=== PATIENT | female | born 1940 | race Caucasian/White ===

== ENCOUNTER 2020-05-08 20:02 | Inpatient (IN) | payer MEDICARE, SELFPAY ==
--- NOTE | 2020-05-08 | ECG_ITS ---
Test Reason : DIZZINESS Blood Pressure : / mmHG Vent. Rate : 076 BPM Atrial Rate : 076 BPM P-R Int : 154 ms QRS Dur : 088 ms QT Int : 362 ms P-R-T Axes : 050 012 019 degrees QTc Int : 407 ms Normal sinus rhythm Low voltage QRS Borderline ECG No previous ECGs available Referred By: Perry Grant Electronically Signed By:LYUBOV GRANT
[2020-05-08 20:11] VITALS: BP 171/61; PULSE 78; RESP 18; TEMP 37.4; O2SAT 99; BMI 26.6
--- NOTE | 2020-05-08 20:18 | PC.NURSE ---
PT BIBA, UPRIGHT IN BED, RR EVEN UNLABORED, SKIN WPD, AOX3. PT C/O ACUTE ON CHRONIC DIZZINESS WHICH STARTED THIS AM, STS FEELS LIKE THINGS ARE SPINNING WHILE AT REST AND EXCAREBATED W/ MOVEMENT, NO RELIEF FROM MECLAZINE WHICH USUALLY RESOLVES HER SX. PT IS LISTING TO L WHILE IN BED, STS WAS WALKING TO LEFT AT, PT BARELY ABLE TO LIFT L LEG OFF BED WHERE R LEG IS STRONG AND LIFTS EASILY, PT STS NORMALLY CAN L LEG WELL AND DOES REGULAR EXERCISES AT HOME, DENIES ANY PAIN OR LEG/HIP ISSUES. DR NORTH NOTIFIED OF PT SX.
--- NOTE | 2020-05-08 20:49 | CT_ITS ---
CT ANGIOGRAM NECK WITH CONTRAST CT ANGIOGRAM BRAIN WITH CONTRAST CLINICAL INFORMATION: Dizziness. COMPARISON: None available. TECHNIQUE: Test bolus sequences followed by intravenous administration 70 mL of Omnipaque 350. Helical imaging was performed in the axial plane from the thoracic inlet to the skull vertex. Delayed postcontrast imaging of the head was also performed. The data was processed at the instrument technologist workstation for generation of MIP sequences. Angled MIPs and volume rendered reformatted images were also generated at an offline 3D workstation under concurrent supervision. Stenoses are assessed in accordance with NASCET criteria unless otherwise indicated. This CT examination was performed using dose optimization techniques as appropriate, variously including the following: *Automated exposure control *Adjustment of mA and/or kV according to patient size (this includes techniques or standardized protocols for targeted exams where dose is matched to indication/reason for exam; i.e. extremities or head) *Use of iterative reconstruction technique FINDINGS: BRAIN: [There is no intracranial hemorrhage, hydrocephalus, extra-axial surface collection, midline shift, or other herniation pattern. Rojas to white matter differentiation is diffusely maintained without evidence of an evolved acute territorial infarct. The basilar cisterns are preserved. No significant soft tissue abnormality. No acute osseous abnormality. There is a right-sided scleral band. There is moderate mucosal thickening within the right maxillary sinus and the left ethmoid air cells. Additional mild sinus mucosal disease including small retention cysts within the left maxillary sinus and the right sphenoid sinus. CERVICAL SOFT TISSUES AND LUNG APICES: The imaged upper lungs are clear. There is multilevel cervical spondylosis. No significant soft tissue findings within the neck. NECK CTA: [There is a classic 3 vessel configuration of the aortic arch. Proximal arch vessels are non-stenotic. The vertebral arteries are codominant. No significant ostial stenosis is visualized on either side. Both vertebral arteries are widely patent throughout their extracranial cervical course. Both common carotid arteries are normal in course and caliber.] There is atherosclerotic calcification involving the carotid bifurcations bilaterally resulting in less than 50% stenoses of the proximal internal carotid arteries on both sides. Retropharyngeal course of the proximal internal carotid arteries bilaterally. BRAIN CTA: [There is normal opacification of major intracranial arteries. No focal flow-limiting stenosis nor discrete proximal large artery occlusion. Small 1 mm infundibulum at the left P-comm origin. Timing of the contrast bolus allows assessment of the major dural venous sinuses, which all opacify normally] CT/CT angio head neck IMPRESSION: - No acute intracranial findings. No acute infarcts. - No acute arterial occlusions and no significant arterial stenoses within the head or neck. - Advanced cervical spondylosis.
[2020-05-08] MEDS: 0.9 % Sodium Chloride 1,000 ML 999 ML IV (21:07)
[2020-05-08] MEDS: diazePAM 5 MG TABLET PO (21:12)
--- NOTE | 2020-05-08 21:20 | ED.DIZZY ---
HPI - Dizziness General Chief Complaint: Dizziness Stated Complaint: dizziness Time Seen by Provider: 05/08/20 22:57 Source: patient Mode of arrival: EMS Limitations: no limitations History of Present Illness HPI Narrative: Patient states she woke around 03:00 am this with dizziness. Patient states history of vertigo, but her dizziness did not resolve with meclizine. Patient states also during the day having some left leg extremity. Patient states also she is leaning to the left side. Related Data Home Medications Medication Instructions Recorded Confirmed albuterol sulfate [ProAir HFA] 2 puff PO QID 05/09/20 05/09/20 meclizine 1 tab PO TID PRN 05/09/20 05/09/20 metoprolol succinate 1 tab PO DAILY 05/09/20 05/09/20 simvastatin 1 tab PO BEDTIME 05/09/20 05/09/20 Allergies Allergy/AdvReac Type Severity Reaction Status Date / Time amoxicillin [From PREVPAC] Allergy Severe RASH Unverified 01/28/20 14:35 clarithromycin [From PREVPAC] Allergy Severe RASH Unverified 01/28/20 14:35 lansoprazole [From PREVP[facility]] Allergy Severe RASH Unverified 01/28/20 14:35 Review of Systems Review of Systems: Yes all other systems are reviewed and are negative Constitutional: Constitutional: Reports as per HPI and Reports no additional constitutional complaints Eyes: Eyes: Reports as per HPI and Reports no additional eye complaints ENT: Reports system reviewed and no additional complaints, except as documented, Reports as per HPI, Reports vertigo and Reports dizziness Cardiovascular: Cardiovascular: Reports as per HPI and Reports no additional cardiovascular complaints Respiratory: Respiratory: Reports as per HPI and Reports no additional respiratory complaints Gastrointestinal: Gastrointestinal: Reports as per HPI and Reports no additional gastrointestinal complaints Genitourinary: Genitourinary: Reports no additional female genitourinary complaints and Reports as per HPI Musculoskeletal: Musculoskeletal: Reports no additional musculoskeletal complaints and Reports as per HPI Neurologic: Reports system reviewed and no additional complaints, except as documented, Reports as per HPI, Reports vertigo and Reports dizziness Psychiatric: Psychiatric: Reports no additional psychiatric complaints and Reports as per HPI PMF Past Medical History Medical History (Updated 05/09/20 @ 02:13 by RIGOBERTO Brownlee) Asthma HLD (hyperlipidemia) HTN (hypertension) Vertigo Social History Social History Alcohol intake: current Alcohol intake frequency: holidays/special occasions only Smoking Status: Former smoker Smoked in Last 30 Days: No Use of substances other than those prescribed or required for medical reasons: No Advance Directives: No Advance Directives Information Provided: No Physical Exam Vital Signs: Vital Signs: Last Vital Signs Temp 98.2 F 05/08/20 22:18 Pulse 85 05/09/20 00:09 Resp 16 05/08/20 22:18 BP 168/78 H 05/09/20 00:09 Pulse Ox 99 05/08/20 22:18 Body Mass Index 26.6 Const: General: cooperative, healthy appearing, comfortable, no acute distress, well developed, alert and awake Orientation/consciousness: patient oriented x3 HENMT: Head: Yes normal to inspection and Yes No palpable skull fracture present Eyes: Other: Positive for horizontal nystagmus going to the left Neck: Neck: Yes full ROM, Yes no meningeal signs, Yes trachea midline, Yes supple and No tender Chest: Chest palpation & inspection: normal inspection of the chest and normal palpation of entire chest wall Resp: Effort & Inspection: normal respiratory effort and able to speak in complete sentences Cardio: Jugular venous distension: no JVD Heart sounds: S1 normal heart sound present and S2 normal heart sound present GI: Inspection: Yes normal to inspection and No abdominal wall ecchymosis Palpation (GI): Soft to palpation, not firm, nontender, no guarding and not rigid : General: No CVA tenderness and Yes no CVA tenderness Back/Spine/Pelvis: Back: no CVA tenderness, No CVA tenderness and No back tenderness Skin: General skin exam: no rashes or lesions noted and elasticity normal Neuro: Other: Negative for slurred speech. Negative for facial droop. Negative pronator drift. Rapid hand movement and [id number] test is intact. Right lower extremity motor strength is 5 left lower extremity lower extremities 4+ General: patient oriented x3, gait normal, no meningeal signs and CN's II-XI intact bilaterally Cranial nerves: Yes CN's II-XII intact bilaterally Extrem: Other: Negative for signs of trauma General: Yes normal to inspection and Yes full ROM Psych: Appearance: grossly normal and well kempt Course Course Course Narrative: Due to patient stating dizziness worse than usual and left lower extremity weakness although patient is out of window for stroke intervention patient will have head CT a to rule out stroke. Patient also given Valium to help with dizziness. Patient also have fluids, labs, EKG, orthostatics ordered. Reevaluation(s) Reevaluation #1: Patient's orthostatics is negative. Still waiting for results for head CTA. After given Valium, meclizine patient was re-evaluated patient still is dizzy. Patient not able to stand or walk. Not able to do Romberg test. Patient will be possible admission. Time: 00:20 Reevaluation #2: Dr. Price of Radiology called and states patient preliminarily read of head CT negative for any acute infarction, aneurysm, dissection, or embolus. He states of official read will be done by Neurology in the morning. Time: 00:30 Reevaluation #3: Spoke with hospitalist Dr. Tafoya who agrees to accept patient. Patient be admitted for dizziness for possible MRI. Patient's troponin elevated more than 50% cardiology will be called to see if patient should be treated as ACS and if anticoagulation is indicated. Second troponin does not show any EKG changes. Time: 01:52 Additional Reevaluation(s): Spoke with Dr. Bentley of cardiology and he does not recommend anticoagulation and does not believe patient is having myocardial infarction. Recommend repeat troponin 8 hours. Patient to be admitted for dizziness for MRi. MDM - Dizziness MDM Narrative Medical decision making narrative: Dizziness Lab Data Result diagrams: 05/08/20 21:07 05/08/20 21:07 Labs: Lab Results 05/08/20 05/08/20 05/08/20 Range/Units 21:07 21:07 21:07 WBC 6.0 (4.8-10.8) X10*3/uL RBC 4.04 L (4.20-5.50) X10*6/uL Hgb 12.7 (12.0-16.0) g/dl Hct 38.0 (37-47) % MCV 94.1 (80-98) fL MCH 31.4 (27.0-33.0) pg MCHC 33.4 (31.0-35.0) g/dl RDW 11.9 (11.0-16.0) % Plt Count 245 (160-400) X10*3/uL MPV 10.0 (9.4-12.3) fL Immature Gran % (Auto) 0.3 (0.0-0.4) % Neut % (Auto) 64.7 (45-73) % Lymph % (Auto) 23.3 (20-40) % [place] % (Auto) 9.5 (2-11) % Eos % (Auto) 1.7 (0-4) % Baso % (Auto) 0.5 (0-2) % Lymph # (Auto) 1.4 (1.2-4.9) X10*3/uL [place] # (Auto) 0.6 (0.1-1.2) X10*3/uL Eos # (Auto) 0.1 (0.0-0.4) X10*3/uL Baso # (Auto) 0.0 (0.0-0.2) X10*3/uL Abs Immat Gran (auto) 0.02 (0.00-0.03) X10*3/uL Absolute Neuts (auto) 3.9 (2.0-8.3) X10*3/uL Absolute Nucleated RBC 0.000 (0.0-0.012) X10*3/uL Nucleated RBC % (auto) 0.0 (0.0-0.2) /100WBC PT 11.3 (10.8-13.0) SEC INR 1.0 (0.9-1.1) APTT 35.2 (24.1-38.0) SEC Sodium 135 (135-145) mmol/L Potassium 4.5 (3.3-5.1) mmol/l Chloride 98 (96-108) mmol/L Carbon Dioxide 28 (22-29) mmol/L Anion Gap 14 (12-20) BUN 11 (9-16) mg/dL Creatinine 0.91 (0.5-1.4) mg/dL Estim Creat Clear Calc 56.3 Estimated GFR 59 Random Glucose 100 (60-115) mg/dL Calcium 9.5 (8.4-10.2) mg/dL Total Bilirubin 0.6 (0.0-1.0) mg/dL AST 15 (5-31) U/L ALT 16 (0-31) U/L Alkaline Phosphatase 66 (39-117) U/L Troponin I High Sens (<3.5-17.0) ng/L Total Protein 7.2 (6.5-8.0) g/dL Albumin 4.3 (3.5-5.0) g/dL Urine Color Urine Appearance Urine pH (5.0-8.0) Ur Specific [place] (1.005-1.025) Urine Protein (NEG-TRACE) MG/DL Urine Glucose (UA) (NEG) MG/DL Urine Ketones (NEG) MG/DL Urine Blood (NEG) Urine Nitrite (NEG) Ur Leukocyte Esterase (NEG) 05/08/20 05/08/20 05/09/20 Range/Units 21:07 23:54 00:46 WBC (4.8-10.8) X10*3/uL RBC (4.20-5.50) X10*6/uL Hgb (12.0-16.0) g/dl Hct (37-47) % MCV (80-98) fL MCH (27.0-33.0) pg MCHC (31.0-35.0) g/dl RDW (11.0-16.0) % Plt Count (160-400) X10*3/uL MPV (9.4-12.3) fL Immature Gran % (Auto) (0.0-0.4) % Neut % (Auto) (45-73) % Lymph % (Auto) (20-40) % Johnson % (Auto) (2-11) % Eos % (Auto) (0-4) % Baso % (Auto) (0-2) % Lymph # (Auto) (1.2-4.9) X10*3/uL [place] # (Auto) (0.1-1.2) X10*3/uL Eos # (Auto) (0.0-0.4) X10*3/uL Baso # (Auto) (0.0-0.2) X10*3/uL Abs Immat Gran (auto) (0.00-0.03) X10*3/uL Absolute Neuts (auto) (2.0-8.3) X10*3/uL Absolute Nucleated RBC (0.0-0.012) X10*3/uL Nucleated RBC % (auto) (0.0-0.2) /100WBC PT (10.8-13.0) SEC INR (0.9-1.1) APTT (24.1-38.0) SEC Sodium (135-145) mmol/L Potassium (3.3-5.1) mmol/l Chloride (96-108) mmol/L Carbon Dioxide (22-29) mmol/L Anion Gap (12-20) BUN (9-16) mg/dL Creatinine (0.5-1.4) mg/dL Estim Creat Clear Calc Estimated GFR Random Glucose (60-115) mg/dL Calcium (8.4-10.2) mg/dL Total Bilirubin (0.0-1.0) mg/dL AST (5-31) U/L ALT (0-31) U/L Alkaline Phosphatase (39-117) U/L Troponin I High Sens 10.6 32.0 H D (<3.5-17.0) ng/L Total Protein (6.5-8.0) g/dL Albumin (3.5-5.0) g/dL Urine Color YELLOW Urine Appearance CLEAR Urine pH 7.0 (5.0-8.0) Ur Specific [place] 1.010 (1.005-1.025) Urine Protein NEG (NEG-TRACE) MG/DL Urine Glucose (UA) NEG (NEG) MG/DL Urine Ketones NEG (NEG) MG/DL Urine Blood NEG (NEG) Urine Nitrite NEG (NEG) Ur Leukocyte Esterase NEG (NEG) ECG Data Interpretation: EKG #1: Normal sinus rhythm. VEnt rate 76: OR interval 154, QRS 88. QTC 407. negative stemi EKG: Sinus rhythm with PVC. Vent rate 75. OR 180. QRS 84. QTC 417. Negaive stemi Discharge Plan Discharge Clinical Impression: Dizziness Patient Disposition: Admitted As Inpatient
[2020-05-08 21:23] LABS: Basophils Percent Auto 0.5 % (0-2); Eosinophils Absolute Auto 0.1 X10*3/uL (0.0-0.4); Eosinophils Percent Auto 1.7 % (0-4); Hemoglobin 12.7 g/dl (12.0-16.0); Imm Gran Abs Auto 0.02 X10*3/uL (0.00-0.03); Imm Gran Pct Auto 0.3 % (0.0-0.4); Lymphocytes Absolute Auto 1.4 X10*3/uL (1.2-4.9); Lymphocytes Percent Auto 23.3 % (20-40); Mean Corpuscular HGB Conc 33.4 g/dl (31.0-35.0); Mean Corpuscular Hemoglobin 31.4 pg (27.0-33.0); Mean Corpuscular Volume 94.1 fL (80-98); Monocytes Absolute Auto 0.6 X10*3/uL (0.1-1.2); Monocytes Percent Auto 9.5 % (2-11); Neutrophils Absolute Auto 3.9 X10*3/uL (2.0-8.3); Neutrophils Percent Auto 64.7 % (45-73); Platelet Count 245 X10*3/uL (160-400); Red Blood Count 4.04 X10*6/uL (4.20-5.50); Red Cell Distribution Width 11.9 % (11.0-16.0)
[2020-05-08 21:24] LABS: MANUAL DIFF FLAG NO
[2020-05-08 21:33] LABS: Prothrombin Time 11.3 SEC (10.8-13.0)
[2020-05-08 21:36] LABS: Partial Thromboplastin Time 35.2 SEC (24.1-38.0)
[2020-05-08 22:16] LABS: Alanine Aminotransferase 16 U/L (0-31); Albumin Level 4.3 g/dL (3.5-5.0); Alkaline Phosphatase 66 U/L (39-117); Anion Gap 14 (12-20); Aspartate Amino Transferase 15 U/L (5-31); Bilirubin Total 0.6 mg/dL (0.0-1.0); Blood Urea Nitrogen 11 mg/dL (9-16); Calcium 9.5 mg/dL (8.4-10.2); Carbon Dioxide 28 mmol/L (22-29); Chloride 98 mmol/L (96-108); Creatinine Clr Calc Pharmacy 56.3; Estimated Glomerular Filt Rate 59; Glucose Random 100 mg/dL (60-115); Potassium 4.5 mmol/l (3.3-5.1); Sodium 135 mmol/L (135-145); Total Protein 7.2 g/dL (6.5-8.0)
[2020-05-08 22:18] VITALS: BP 139/60; PULSE 71; RESP 16; TEMP 36.8; O2SAT 99
[2020-05-08 22:20] LABS: Troponin-I High Sensitivity 10.6 ng/L (<3.5-17.0)
[2020-05-08] MEDS: iohexoL 350 MG/ML 100 ML INFUS..BTL IV (22:40)
[2020-05-09] VITALS (10 sets, daily range): BP systolic 118–177; BP diastolic 58–78; PULSE 73–85; RESP 18–20; TEMP 36.4–36.8; O2SAT 95–98
--- NOTE | 2020-05-09 | MR_ITS ---
EXAMINATION: BRAIN MRI WITHOUT CONTRAST CLINICAL INFORMATION: Evaluate for stroke. COMPARISON: CT angiogram of the head and neck 05/08/2020. TECHNIQUE: Multiplanar MR imaging of the brain was performed without contrast. FINDINGS: There are are a few small acute infarcts involving the paramedian surface of the right frontal lobe and the body of the corpus callosum consistent with acute infarct within the vascular territory the right anterior cerebral artery. Addition to these acute findings there are a few scattered foci of T2 FLAIR signal hyperintensity within the periventricular white matter that most likely represent a chronic manifestation of small vessel ischemia. No pathological magnetic susceptibility artifact. Intracranial vascular flow voids are maintained. There is no intracranial mass effect or midline shift. No abnormal extra axial collection. Lateral and third ventricles are proportionate to the subarachnoid spaces. No hydrocephalus. Midline structures including the cervicomedullary junction are normal. No acute bone marrow signal changes. There is no mastoid or middle ear effusion. Moderate paranasal sinus disease primarily affecting the left posterior ethmoid air cells and the alveolar recess of the right maxillary sinus. A right scleral band and bilateral lens extractions are noted. Orbits are otherwise unremarkable. 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 These findings are superimposed upon scattered chronic small vessel ischemic changes within the periventricular white matter.
[2020-05-09 00:04] LABS: Appearance Urine CLEAR; Color Urine YELLOW; Glucose Urine UA NEG (NEG); Leukocyte Esterase Urine NEG (NEG); Nitrite Urine NEG (NEG); Urine Blood NEG (NEG); Urine Ketones NEG (NEG); Urine Protein NEG (NEG-TRACE)
[2020-05-09] MEDS: Meclizine HCl 25 MG TABLET PO (00:42)
--- NOTE | 2020-05-09 01:25 | ECG_ITS ---
Test Reason : REPEAT Blood Pressure : / mmHG Vent. Rate : 075 BPM Atrial Rate : 075 BPM P-R Int : 180 ms QRS Dur : 084 ms QT Int : 374 ms P-R-T Axes : 050 021 015 degrees QTc Int : 417 ms Sinus rhythm with Premature supraventricular complexes Low voltage QRS Cannot rule out Anterior infarct , age undetermined Abnormal ECG When compared with ECG of 08-MAY-2020 20:21, Premature supraventricular complexes are now Present Referred By: Perry Grant Electronically Signed By:LYUBOV GRANT
--- NOTE | 2020-05-09 02:43 | P.HPHOSP_ITS ---
History of Present Illness Date of Service: 05/09/20 Chief Complaint: Dizziness 80-year-old female with a past medical history of hypertension, hyperlipidemia, vertigo, asthma presented to the hospital with a chief complaint of dizziness. Patient reports that she has intermittent episodes of dizziness that lasts for about have day. She had similar episode of dizziness distended started on 05/08 and a.m. at 3:00 a.m., symptoms lasted until evening and has not been improving even after she took her home meclizine hence decided to come to the ER for further help. Patient mentions that every time she had dizziness she feels like room is spinning and also sways to one side. Denies any chest pain palpitation s. Denies any numbness tingling or focal weakness. Denies any GI or symptoms. Review of all other systems is negative except mentioned above ER course: Per ER team patient the exam was essentially nonfocal except for mild degree stent on the left lower extremity, sensations intact, CT head and CT neck reportedly showed no acute findings. Patient initial troponin was 10 the follow-up troponin was 30; EKG was nonischemic; cardiology was notified-Dr. benjamin mentioned no anticoagulation needed at this point, admitted telemetry, repeat troponins in 8 hours. Patient denies any toxic habits Review of Systems ENT: Reports vertigo and Reports dizziness Neurologic: Reports system reviewed and no additional complaints, except as documented, Reports as per HPI, Reports vertigo and Reports dizziness COUNT INCLUDES THE [facility] Medical History Asthma HLD (hyperlipidemia) HTN (hypertension) Vertigo Social History Household Members: None Housing: Apartment Do you presently have visiting nurse or other home services: No Alcohol intake: current Alcohol intake frequency: holidays/special occasions only Smoking Status: Former smoker Smoked in Last 30 Days: No Use of substances other than those prescribed or required for medical reasons: No Have you been hit, kicked, punched, or otherwise hurt by someone within the past year? If so, by whom?: No Do you feel safe in your current relationship?: No Current Relationship Is there a partner from a previous relationship who is making you feel unsafe now?: No Are you made to feel afraid or neglected: No Faith Healthcare Practices: zoroastrianism Advance Directives: No Advance Directives Information Provided: No Do you have thoughts of harming others: None Do you have a plan to hurt others: No Plan Recently lost weight without trying: No service: No Current occupational status: retired Meds Allergies Allergy/AdvReac Type Severity Reaction Status Date / Time amoxicillin [From [facility]] Allergy Severe RASH Unverified 01/28/20 14:35 clarithromycin [From [facility]] Allergy Severe RASH Unverified 01/28/20 14:35 lansoprazole [From [facility]] Allergy Severe RASH Unverified 01/28/20 14:35 Home Medications Medication Instructions Recorded Confirmed Type albuterol sulfate [ProAir HFA] 2 puff PO QID 05/09/20 05/09/20 History meclizine 1 tab PO TID PRN 05/09/20 05/09/20 History metoprolol succinate 1 tab PO DAILY 05/09/20 05/09/20 History simvastatin 1 tab PO BEDTIME 05/09/20 05/09/20 History Physical Exam Vital Signs and Narrative: Vital Signs: Last Vital Signs Temp 98.2 F 05/08/20 22:18 Pulse 85 05/09/20 00:09 Resp 16 05/08/20 22:18 BP 168/78 H 05/09/20 00:09 Pulse Ox 99 05/08/20 22:18 Body Mass Index 26.6 Gen: Appears in no Acute Distress; Breathing comfortably HEENT: NCAT, Moist Mucosa; no nystagmus Pulm: Vesicular Breath Sounds, fair Air Entry CVS: Normal S1- S2 Abdomen: BS+, soft, Non tender Extremities: Warm, Well Perfused. Neuro: Alert, Awake. Grossly nonfocal. No pronator drift. Strength 5/5 in upper and lower extremities. Sensations equal bilaterally. Cranial nerves intact. Finger to nose test intact. Results Labs CBC and Chem 7: 05/09/20 08:00 05/09/20 08:00 Labs: Laboratory Results - last 24 hr 05/08/20 05/08/20 05/08/20 21:07 21:07 21:07 MCV 94.1 MCH 31.4 MCHC 33.4 RDW 11.9 Plt Count 245 MPV 10.0 Immature Gran % (Auto) 0.3 Neut % (Auto) 64.7 Lymph % (Auto) 23.3 [place] % (Auto) 9.5 Eos % (Auto) 1.7 Baso % (Auto) 0.5 Lymph # (Auto) 1.4 [place] # (Auto) 0.6 Eos # (Auto) 0.1 Baso # (Auto) 0.0 Abs Immat Gran (auto) 0.02 Absolute Neuts (auto) 3.9 Absolute Nucleated RBC 0.000 Nucleated RBC % (auto) 0.0 PT 11.3 INR 1.0 APTT 35.2 Anion Gap 14 Estim Creat Clear Calc 56.3 Estimated GFR 59 Random Glucose 100 Calcium 9.5 Total Bilirubin 0.6 AST 15 ALT 16 Alkaline Phosphatase 66 Troponin I High Sens Total Protein 7.2 Albumin 4.3 Urine Color Urine Appearance Urine pH Ur Specific [place] Urine Protein Urine Glucose (UA) Urine Ketones Urine Blood Urine Nitrite Ur Leukocyte Esterase 05/08/20 05/08/20 05/09/20 21:07 23:54 00:46 MCV MCH MCHC RDW Plt Count MPV Immature Gran % (Auto) Neut % (Auto) Lymph % (Auto) [place] % (Auto) Eos % (Auto) Baso % (Auto) Lymph # (Auto) [place] # (Auto) Eos # (Auto) Baso # (Auto) Abs Immat Gran (auto) Absolute Neuts (auto) Absolute Nucleated RBC Nucleated RBC % (auto) PT INR APTT Anion Gap Estim Creat Clear Calc Estimated GFR Random Glucose Calcium Total Bilirubin AST ALT Alkaline Phosphatase Troponin I High Sens 10.6 32.0 H D Total Protein Albumin Urine Color YELLOW Urine Appearance CLEAR Urine pH 7.0 Ur Specific [place] 1.010 Urine Protein NEG Urine Glucose (UA) NEG Urine Ketones NEG Urine Blood NEG Urine Nitrite NEG Ur Leukocyte Esterase NEG Assessment and Plan (1) Dizziness: Status: Acute 80-year-old female with a past medical history of hypertension, hyperlipidemia, vertigo, asthma presented to the hospital with a chief complaint of dizziness. Patient also noted to have elevated troponin. Patient denied any chest pain. Admitted to the hospital for further management. Dizziness: Patient was given Valium and meclizine in the ER with no significant improvement. Orthostatics Negative. ER team mentioned that the noticed mild decrease in her left lower extremity strength compared to the right. On my exam her strength is equal bilaterally. Continue meclizine p.r.n. Neurology consult further recommendations as well as imaging if needed. Reportedly CT head and CT head and neck showed no acute findings-pending final read. PT/OT Elevated troponins: EKG nonischemic. Patient denies any chest pain. Dr. triana from Cardiology was notified, recommended no further intervention and asked for a follow-up troponin 8 hours. Echocardiogram Hypertension/hyperlipidemia: Continue home medications Full code
[2020-05-09 03:06] LABS: COVID-19 Test Negative (Negative)
--- NOTE | 2020-05-09 04:28 | PC.NURSE ---
2nd attempt to give report.
[2020-05-09] MEDS: Enoxaparin Sodium 40 MG/0.4 ML SYRINGE SUBCUT (06:27)
--- NOTE | 2020-05-09 08:00 | CA_ITS ---
Transthoracic Echocardiogram Patient (Last, First, Middle): Keyla Luu C Gender: Female Date of : 1940 Age: 80 Procedure Date: 05/09/2020 Procedure Type: Transthoracic Echocardiogram Location: [facility] [place] Height: 175.26 cm Weight: 81.65 kg BSA: 1.98 m2 Heart Rate: bpm BP: 129 / 71 mmHg Senior Project Manager: SATINDER Referring MD: Jaiden Tafoya MD Symptoms: Dizziness; Elevated trops; Study Quality: Fair/Contrast ECG Rhythm: Sinus Conclusions: - The left ventricular systolic function is normal. The visually estimated ejection fraction is between 60-65%. - There is mild calcification of the aortic valve. - No obvious valvular pathology seen on this study. Findings Procedure Information Contrast agent, definity, is being given per protocol without apparent complications. Left Ventricle Normal left ventricular cavity size. There is normal left ventricular wall thickness. The left ventricular systolic function is normal. The visually estimated ejection fraction is between 60-65%. There is no evidence of regional wall motion abnormalities. Diastolic function is normal for age. Right Ventricle Normal right ventricular cavity size and systolic function. Atria Both atria are normal in size. Aortic Valve There is a normal trileaflet aortic valve. There is mild calcification of the aortic valve. There is no aortic valve stenosis. There is trace (trivial) aortic valve regurgitation. Mitral Valve The mitral valve appears normal. There is trace mitral valve regurgitation. There is no mitral valve stenosis. Pulmonic Valve The pulmonic valve was not well visualized. Tricuspid Valve Normal tricuspid valve structure. There is trace tricuspid valve regurgitation. The pulmonary artery systolic pressure is normal. Great Vessels The aortic annulus, sinuses of valsalva, and asc aorta are normal in size. Venous The inferior vena cava is normal in size and collapses less than 50% with inspiration. Pericardium/Pleural There is no evidence of pericardial effusion. Prior Study Comparison No prior study available for comparison. Recommendations, Care & Conclusions No obvious valvular pathology seen on this study. Measurements 2D Linear Measurements IVSd: 0.90 0.6-0.9/0.6-1.0 cm LVIDd: 4.17 3.9-5.3/4.2-5.9 cm LVIDd Index: 2.11 2.4-3.2/2.2-3.1 cm/m2 LVIDs: 2.72 2.0-3.6 cm LVPWd: 0.84 0.7-1.1 cm Ao Root: 3.00 2.1-3.5 cm LA Diam: 3.30 2.7-3.8/3.0-4.0 cm LAIDs Index: 1.67 1.5-2.3 cm/m2 LV Mass: 139.27 67-162/88-224 g LV Mass Index: 70.34 43-95/49-115 g/m2 LVOT Diam: 2.00 3.0+(-)1.3 cm 2D Systolic Function EF 4C: 63.10 >55% EF 2C: 68.10 >55% EF BiP: 65.90 >55% Mitral Valve MV Pk E: 0.96 MV PK A: 1.14 MV Decel Time: 261.00 E/A: 0.80 E'Lateral: 8.61 E'Medial: 6.96 E/E' Med: 13.80 E/E' Lat: 11.10 PHT: 76.00 MVA PHT: 2.89 Decel [place]: 3.69 Aortic Valve AoV Pk [place]: 1.49 AoV Mn [place]: 1.03 AoV VTI: 0.31 AoV Pk Grad: 9.00 Aov Mn Grad: 5.00 RESHMA Cont.VTI: 2.26 LVOT LVOT Pk [place]: 0.98 LVOT Mn [place]: 0.68 LVOT VTI: 0.22 LVOT Pk Grad: 4.00 LVOT Mn Grad: 2.00 LVOT Diam: 2.00 LVOT Area: 3.14 Diastolic Function MV Pk E: 0.96 MV Pk A: 1.14 E/A: 0.80 E'Medial: 6.96 E/E' Med: 13.80 E' Laterial: 8.61 E/E' Lat: 11.10 Tricuspid Valve TR Pk [place]: 2.65 TR Pk Grad: 28.00 RA Press: 3.00 RVSP: 31.00 Great Vessels Aorta Ao Root-2D: 3.00 2.0-3.7 cm Ao Asc: 3.10 2.1-3.4 cm Ao Arch: 2.70 Updated in Other Vendor System with Status of Final Ivan Interiano MD electronically signed on 05/09/2020 11:26:59 AM with status of Final
[2020-05-09 08:30] LABS: Basophils Percent Auto 0.4 % (0-2); Eosinophils Absolute Auto 0.2 X10*3/uL (0.0-0.4); Eosinophils Percent Auto 2.2 % (0-4); Hematocrit 37.2 % (37-47); Hemoglobin 12.5 g/dl (12.0-16.0); Imm Gran Abs Auto 0.01 X10*3/uL (0.00-0.03); Imm Gran Pct Auto 0.1 % (0.0-0.4); Lymphocytes Percent Auto 28.8 % (20-40); MANUAL DIFF FLAG NO; Mean Corpuscular HGB Conc 33.6 g/dl (31.0-35.0); Mean Corpuscular Hemoglobin 31.6 pg (27.0-33.0); Mean Corpuscular Volume 93.9 fL (80-98); Mean Platelet Volume 10.4 fL (9.4-12.3); Monocytes Absolute Auto 0.7 X10*3/uL (0.1-1.2); Monocytes Percent Auto 10.5 % (2-11); Platelet Count 237 X10*3/uL (160-400); Red Blood Count 3.96 X10*6/uL (4.20-5.50); Red Cell Distribution Width 11.9 % (11.0-16.0)
[2020-05-09 08:55] LABS: Anion Gap 11 (12-20); Blood Urea Nitrogen 10 mg/dL (9-16); Calcium 9.1 mg/dL (8.4-10.2); Carbon Dioxide 29 mmol/L (22-29); Chloride 100 mmol/L (96-108); Creatinine Clr Calc Pharmacy 60.3; Estimated Glomerular Filt Rate > 60; Glucose Random 95 mg/dL (60-115); Potassium 4.2 mmol/l (3.3-5.1); Sodium 136 mmol/L (135-145)
[2020-05-09 09:12] LABS: Troponin-I High Sensitivity 194.9 ng/L (<3.5-17.0)
--- NOTE | 2020-05-09 09:19 | MHC.CM.PN ---
CM was unable to reach Patient by phone; CM spoke with Daughter/Nicki (Kirstieharsha cecilia). Patient lives alone in an apartment and uses no device to assist with mobility. The gosl for dc is for Patient to return home, no services as before, and CM has initiated and will follow for dc planning. IMM addressed with Nicki and the original will be mailed out certified letter to her and a copy has been placed on the chart. PCP is Dr. Rasta Montano.
--- NOTE | 2020-05-09 09:44 | PM.CNCAR ---
History of Present Illness History of Present Illness Date of Service: 05/09/20 Chief complaint: dizziness Narrative: This is a cardiology consultation regarding elevated troponins. She does not have any known cardiac issues whatsoever. Denies any history of coronary disease myocardial infarction or cardiomyopathy or any other cardiac concerns in the past. She seems to have history of hypertension hyperlipidemia. She states that she felt as if she was walking towards her left side. She also felt she was not able to use a left arm as much with some weakness. No chest pain of anginal type or shortness of breath or any other cardiac symptoms at this time. She has had similar episodes thought to be vertigo in the past but not to this extreme. In this context, troponins were checked and they were slightly elevated and hence we were asked to see her. Patient otherwise states that she has been very active at baseline without any major limitations. She has a lot of coronary disease in her family including her siblings but never been diagnosed in herself. Review of Systems Review of Systems: Yes all other systems are reviewed and are negative ENT: Reports vertigo and Reports dizziness Cardiovascular: Cardiovascular: Reports as per HPI, Reports no additional cardiovascular complaints, Denies acrocyanosis, Denies cool extremities, Denies painful fingertips, Denies chest pain, Denies chest pain at rest, Denies diaphoresis, Denies syncope, Denies irregular heart rhythm, Denies claudication, Denies leg edema, Denies lightheadedness, Denies palpitations and Denies dyspnea Respiratory: Respiratory: Denies dyspnea Neurologic: Reports system reviewed and no additional complaints, except as documented, Reports as per HPI, Reports vertigo, Reports dizziness and Denies syncope Endocrine: Endocrine: Denies palpitations [facility] Past Medical History Medical History Asthma HLD (hyperlipidemia) HTN (hypertension) Vertigo Family History Pertinent family history: Family history is positive for coronary disease in multiple family members including siblings. Social History Social History Household Members: None Housing: Apartment Do you presently have visiting nurse or other home services: No Alcohol intake: current Alcohol intake frequency: holidays/special occasions only Smoking Status: Former smoker Smoked in Last 30 Days: No Use of substances other than those prescribed or required for medical reasons: No Have you been hit, kicked, punched, or otherwise hurt by someone within the past year? If so, by whom?: No Do you feel safe in your current relationship?: No Current Relationship Is there a partner from a previous relationship who is making you feel unsafe now?: No Are you made to feel afraid or neglected: No Hinduism Healthcare Practices: jewish Advance Directives: No Advance Directives Information Provided: No Do you have thoughts of harming others: None Do you have a plan to hurt others: No Plan Recently lost weight without trying: No service: No Current occupational status: retired [employer] Allergies Allergy/AdvReac Type Severity Reaction Status Date / Time amoxicillin [From [facility]] Allergy Severe RASH Unverified 01/28/20 14:35 clarithromycin [From [facility]] Allergy Severe RASH Unverified 01/28/20 14:35 lansoprazole [From [facility]] Allergy Severe RASH Unverified 01/28/20 14:35 Home Medications Medication Instructions Recorded Confirmed Type albuterol sulfate [ProAir HFA] 2 puff PO QID 05/09/20 05/09/20 History meclizine 1 tab PO TID PRN 05/09/20 05/09/20 History metoprolol succinate 1 tab PO DAILY 05/09/20 05/09/20 History simvastatin 1 tab PO BEDTIME 05/09/20 05/09/20 History Physical Exam Vital Signs: Vital Signs: Last Vital Signs Temp 98.2 F 05/09/20 08:00 Pulse 78 05/09/20 08:00 Resp 20 05/09/20 08:00 BP 177/76 H 05/09/20 08:00 Pulse Ox 96 05/09/20 08:00 Body Mass Index 26.6 Const: General: cooperative, comfortable and no acute distress Orientation/consciousness: patient oriented x3 HENMT: Other: Unremarkable Neck: Neck: Yes normal visual inspection Chest: Chest palpation & inspection: normal inspection of the chest Resp: Auscultation: clear to auscultation bilaterally, no crackles and no wheezes Cardio: Jugular venous distension: no JVD Palpation: normal PMI Heart sounds: S1 normal heart sound present, S2 normal heart sound present, no gallops, no murmurs and no rubs GI: Palpation (GI): Soft to palpation Back/Spine/Pelvis: Other: unremarkable Skin: General skin exam: no rashes or lesions noted Neuro: General: patient oriented x3 Extrem: General: Yes no clubbing, cyanosis or edema Psych: Mental Status: mental status grossly normal Results Labs and Meds Result diagrams: 05/09/20 08:00 05/09/20 08:00 Lab results: Laboratory Results - last 24 hr 05/08/20 05/08/20 05/08/20 21:07 21:07 21:07 WBC 6.0 RBC 4.04 L Hgb 12.7 Hct 38.0 MCV 94.1 MCH 31.4 MCHC 33.4 RDW 11.9 Plt Count 245 MPV 10.0 Immature Gran % (Auto) 0.3 Neut % (Auto) 64.7 Lymph % (Auto) 23.3 [place] % (Auto) 9.5 Eos % (Auto) 1.7 Baso % (Auto) 0.5 Lymph # (Auto) 1.4 [place] # (Auto) 0.6 Eos # (Auto) 0.1 Baso # (Auto) 0.0 Abs Immat Gran (auto) 0.02 Absolute Neuts (auto) 3.9 Absolute Nucleated RBC 0.000 Nucleated RBC % (auto) 0.0 PT 11.3 INR 1.0 APTT 35.2 Sodium 135 Potassium 4.5 Chloride 98 Carbon Dioxide 28 Anion Gap 14 BUN 11 Creatinine 0.91 Estim Creat Clear Calc 56.3 Estimated GFR 59 Random Glucose 100 Calcium 9.5 Magnesium Total Bilirubin 0.6 AST 15 ALT 16 Alkaline Phosphatase 66 Troponin I High Sens Total Protein 7.2 Albumin 4.3 Urine Color Urine Appearance Urine pH Ur Specific [place] Urine Protein Urine Glucose (UA) Urine Ketones Urine Blood Urine Nitrite Ur Leukocyte Esterase Coronavirus (PCR) COVID-19 (TUNG) COVID-19 Clin Com Influenza Type A (PCR) Influenza Type B (PCR) RSV RNA Qual (PCR) 05/08/20 05/08/20 05/09/20 21:07 23:54 00:46 WBC RBC Hgb Hct MCV MCH MCHC RDW Plt Count MPV Immature Gran % (Auto) Neut % (Auto) Lymph % (Auto) [place] % (Auto) Eos % (Auto) Baso % (Auto) Lymph # (Auto) [place] # (Auto) Eos # (Auto) Baso # (Auto) Abs Immat Gran (auto) Absolute Neuts (auto) Absolute Nucleated RBC Nucleated RBC % (auto) PT INR APTT Sodium Potassium Chloride Carbon Dioxide Anion Gap BUN Creatinine Estim Creat Clear Calc Estimated GFR Random Glucose Calcium Magnesium Total Bilirubin AST ALT Alkaline Phosphatase Troponin I High Sens 10.6 32.0 H D Total Protein Albumin Urine Color YELLOW Urine Appearance CLEAR Urine pH 7.0 Ur Specific [place] 1.010 Urine Protein NEG Urine Glucose (UA) NEG Urine Ketones NEG Urine Blood NEG Urine Nitrite NEG Ur Leukocyte Esterase NEG Coronavirus (PCR) COVID-19 (TUNG) COVID-19 Clin Com Influenza Type A (PCR) Influenza Type B (PCR) RSV RNA Qual (PCR) 05/09/20 05/09/20 05/09/20 02:15 02:15 08:00 WBC 7.0 RBC 3.96 L Hgb 12.5 Hct 37.2 MCV 93.9 MCH 31.6 MCHC 33.6 RDW 11.9 Plt Count 237 MPV 10.4 Immature Gran % (Auto) 0.1 Neut % (Auto) 58.0 Lymph % (Auto) 28.8 [place] % (Auto) 10.5 Eos % (Auto) 2.2 Baso % (Auto) 0.4 Lymph # (Auto) 2.0 [place] # (Auto) 0.7 Eos # (Auto) 0.2 Baso # (Auto) 0.0 Abs Immat Gran (auto) 0.01 Absolute Neuts (auto) 4.0 Absolute Nucleated RBC 0.000 Nucleated RBC % (auto) 0.0 PT INR APTT Sodium Potassium Chloride Carbon Dioxide Anion Gap BUN Creatinine Estim Creat Clear Calc Estimated GFR Random Glucose Calcium Magnesium Total Bilirubin AST ALT Alkaline Phosphatase Troponin I High Sens Total Protein Albumin Urine Color Urine Appearance Urine pH Ur Specific [place] Urine Protein Urine Glucose (UA) Urine Ketones Urine Blood Urine Nitrite Ur Leukocyte Esterase Coronavirus (PCR) Cancelled COVID-19 (TUNG) Negative COVID-19 Clin Com See Note Influenza Type A (PCR) Cancelled Influenza Type B (PCR) Cancelled RSV RNA Qual (PCR) Cancelled 05/09/20 05/09/20 05/09/20 08:00 08:00 08:00 WBC RBC Hgb Hct MCV MCH MCHC RDW Plt Count MPV Immature Gran % (Auto) Neut % (Auto) Lymph % (Auto) [place] % (Auto) Eos % (Auto) Baso % (Auto) Lymph # (Auto) [place] # (Auto) Eos # (Auto) Baso # (Auto) Abs Immat Gran (auto) Absolute Neuts (auto) Absolute Nucleated RBC Nucleated RBC % (auto) PT INR APTT Sodium 136 Potassium 4.2 Chloride 100 Carbon Dioxide 29 Anion Gap 11 L BUN 10 Creatinine 0.85 Estim Creat Clear Calc 60.3 Estimated GFR > 60 Random Glucose 95 Calcium 9.1 Magnesium 2.0 Total Bilirubin AST ALT Alkaline Phosphatase Troponin I High Sens 194.9 H D Total Protein Albumin Urine Color Urine Appearance Urine pH Ur Specific [place] Urine Protein Urine Glucose (UA) Urine Ketones Urine Blood Urine Nitrite Ur Leukocyte Esterase Coronavirus (PCR) COVID-19 (TUNG) COVID-19 Clin Com Influenza Type A (PCR) Influenza Type B (PCR) RSV RNA Qual (PCR) Assessment and Plan (1) NSTEMI (non-ST elevated myocardial infarction): Status: Acute (2) Dizziness: Status: Acute Elevated troponins noted. First set was 10; 2nd set was 30; 3rd set set is 195. Normal renal function. COVID negative. EKG shows normal sinus rhythm without any acute ischemic findings. Her blood pressure is running high. Not clear if that is causing any symptoms or secondary effect. Troponin elevation is most likely from secondary phenomenon. Does not appear like an acute plaque rupture. We can get an echocardiogram for LV function assessment. If no neurological contraindications, 48 hours of Lovenox. Blood pressure management. We will follow. Outpatient stress testing.
[2020-05-09] MEDS: Metoprolol Succinate ER 50 MG TAB.ER.24H PO (11:07)
[2020-05-09] MEDS: Meclizine HCl 12.5 MG TABLET PO (11:07)
--- NOTE | 2020-05-09 11:07 | P.CNNE_ITS ---
History of Present Illness Data of Consult Service Date: 05/09/20 Primary Care Provider: Unknown Physician 80 years old woman with underlying history of hypertension and vertigo who came to emergency room with dizziness. It started probably a day before she came to emergency room. She said that she was fine when he was sitting are not moving. It was feeling of unsteadiness and dizziness when she moved or set up. She also complain of left-sided weakness. There was no complaint of visual symptoms or speech or language difficulty. There was no pain. Review of Systems Review of Systems: No recent cold or flu-like illness or trauma or seizure like episode. ENT: Reports vertigo and Reports dizziness Cardiovascular: Cardiovascular: Denies syncope Neurologic: Reports system reviewed and no additional complaints, except as documented, Reports as per HPI, Reports vertigo, Reports dizziness and Denies syncope PMFSH Past Medical History Medical History Asthma HLD (hyperlipidemia) HTN (hypertension) Vertigo Social History Social History Household Members: None Housing: Apartment Do you presently have visiting nurse or other home services: No Alcohol intake: current Alcohol intake frequency: holidays/special occasions only Smoking Status: Former smoker Smoked in Last 30 Days: No Use of substances other than those prescribed or required for medical reasons: No Have you been hit, kicked, punched, or otherwise hurt by someone within the past year? If so, by whom?: No Do you feel safe in your current relationship?: No Current Relationship Is there a partner from a previous relationship who is making you feel unsafe now?: No Are you made to feel afraid or neglected: No Protestant Healthcare Practices: hinduism Advance Directives: No Advance Directives Information Provided: No Do you have thoughts of harming others: None Do you have a plan to hurt others: No Plan Recently lost weight without trying: No service: No Current occupational status: retired Meds Allergies Allergy/AdvReac Type Severity Reaction Status Date / Time amoxicillin [From [facility]] Allergy Severe RASH Unverified 01/28/20 14:35 clarithromycin [From [facility]] Allergy Severe RASH Unverified 01/28/20 14:35 lansoprazole [From [facility]] Allergy Severe RASH Unverified 01/28/20 14:35 Home Medications Medication Instructions Recorded Confirmed Type albuterol sulfate [ProAir HFA] 2 puff PO QID 05/09/20 05/09/20 History meclizine 1 tab PO TID PRN 05/09/20 05/09/20 History metoprolol succinate 1 tab PO DAILY 05/09/20 05/09/20 History simvastatin 1 tab PO BEDTIME 05/09/20 05/09/20 History Physical Exam Vital Signs: Vital Signs: Last Vital Signs Temp 98.2 F 05/09/20 08:00 Pulse 78 05/09/20 08:00 Resp 20 05/09/20 08:00 BP 177/76 H 05/09/20 08:00 Pulse Ox 96 05/09/20 08:00 Body Mass Index 26.6 He is alert and awake with normal spontaneity of speech fluency comprehension and affect. Pupils are round reactive to light. External ocular muscles are intact. Visual banuelos are full to threat. There is minimal left-sided facial flatness. There is mild left pronator drift. [id number] testing revealed ataxia on left side compared to right. Deep tendon reflexes were trace to absent with flexor plantars. There is no visual or sensory extinction. Results Labs CBC & Chem 7: 05/09/20 08:00 05/09/20 08:00 Labs: Short CBC 05/08/20 05/09/20 Range/Units 21:07 08:00 WBC 6.0 7.0 (4.8-10.8) X10*3/uL Hgb 12.7 12.5 (12.0-16.0) g/dl Hct 38.0 37.2 (37-47) % Plt Count 245 237 (160-400) X10*3/uL BMP 05/08/20 05/09/20 21:07 08:00 Sodium 135 136 Potassium 4.5 4.2 Chloride 98 100 Carbon Dioxide 28 29 BUN 11 10 Creatinine 0.91 0.85 Calcium 9.5 9.1 Liver Function 05/08/20 Range/Units 21:07 Total Bilirubin 0.6 (0.0-1.0) mg/dL AST 15 (5-31) U/L ALT 16 (0-31) U/L Alkaline Phosphatase 66 (39-117) U/L Albumin 4.3 (3.5-5.0) g/dL Urine 05/08/20 Range/Units 23:54 Urine Color YELLOW Urine Appearance CLEAR Urine pH 7.0 (5.0-8.0) Ur Specific [place] 1.010 (1.005-1.025) Urine Protein NEG (NEG-TRACE) MG/DL Urine Glucose (UA) NEG (NEG) MG/DL Her CTA of brain and neck did not reveal any acute pathology or large vessel disease. Assessment and Plan (1) Dizziness: Status: Acute Dizziness and mild left-sided weakness with examination revealing mild left-sided weakness and ataxia. These features were suggestive of a subacute brainstem probably ischemic infarct. My recommendation is continue anti- platelet agent, discontinue meclizine and obtain an MRI of brain without contrast.
[2020-05-09] MEDS: 0.9 % Sodium Chloride Flush 3 ML SYRINGE IVFLUSH ×3 (11:08→23:57)
[2020-05-09] MEDS: Aspirin Enteric Coated 81 MG TABLET.DR PO (11:08)
[2020-05-09] MEDS: Albuterol Sulfate 90 MCG 8 GM INHALER 2 PUFF INHALE (11:34)
--- NOTE | 2020-05-09 17:13 | P.EN_ITS ---
Event Note Date of Service: 05/09/20 Event Note: The patient was seen and evaluated. Discussed the result of MRI s howing acute stroke. cardiology recommended starting full-dose Lovenox for NSTEMI. discussed with Dr. Elam from Neurology who recommended baby aspirin and was okay with starting full-dose Lovenox
--- NOTE | 2020-05-09 18:16 | MHC.STROKE ---
Addendum entered by Shyann Looney RN 05/10/20 12:50: I MET WITH THE PATIENT TODAY AND SHE HAD JUST HAD AN EPISODE OF DIAPHORESIS AND LIGHTHEADED AFTER HER LOVENOX INJECTION. THE HOSPITALIST WAS AWARE. SHE WAS FEELING BETTER BUT SHE IS PALE. I DID NOTIFY DR GONZALEZ AND HE DID COME TO SEE HER. I PROVIDED STROKE EDUCATION, AND WE DISCUSSED HER RISK FACTORS, MEDICATIONS, AND PLAN OF CARE. I ANSWERED ALL OF HER QUESTIONS. I GAVE HER A SCREENSHOT OF THE MRI IMAGE OF THE STROKE LOCATION. WE DISCUSSED THE CORRELATED SYMPTOMS AND HEART DISEASE ASSOCIATION. I NOTIFIED CASE MANAGEMENT OF ACUTE REHAB RECOMMENDATIONS BY PT. I WILL CONTINUE TO FOLLOW. Original Note: EMS PRE-NOTIFIED DIZZY 05/08/201956, ARRIVED 2001. NIHSS = 0, CT/CTA H/N DONE, NO BLEED NO LVO (LARGE VESSEL OCCLUSION). PASSED SWALLOW SCREEN PRIOR TO PO. ADMITTED TO INPATIENT. SEEN BY NEUROLOGY AND CARDIOLOGY, MRI DISCUSSED + EMBOLIC LOOKING ACUTE ISCHEMIC STROKE. LIPID PANEL IN AM, DISCUSSING FULL-DOSE LOVENOX, SEE MD NOTES. PT IS RECOMMENDING ACUTE REHAB, INITIATE STROKE EDUCATION. HX OF HTN, HLD, CAD. I WILL CONTINUE TO FOLLOW.
[2020-05-09] MEDS: Atorvastatin Calcium 40 MG TABLET PO (20:50)
[2020-05-10] VITALS: BP 150/72; PULSE 74; RESP 20; TEMP 36.7
[2020-05-10 03:44] VITALS: BP 131/64; PULSE 73; RESP 20; TEMP 37; O2SAT 96
[2020-05-10 06:48] LABS: Hematocrit 36.5 % (37-47); Hemoglobin 12.1 g/dl (12.0-16.0); Mean Corpuscular HGB Conc 33.2 g/dl (31.0-35.0); Mean Corpuscular Hemoglobin 31.3 pg (27.0-33.0); Mean Corpuscular Volume 94.6 fL (80-98); Mean Platelet Volume 10.4 fL (9.4-12.3); Platelet Count 229 X10*3/uL (160-400); Red Blood Count 3.86 X10*6/uL (4.20-5.50); White Blood Count 5.7 X10*3/uL (4.8-10.8)
[2020-05-10 07:17] LABS: Anion Gap 14 (12-20); Blood Urea Nitrogen 17 mg/dL (9-16); Calcium 8.8 mg/dL (8.4-10.2); Carbon Dioxide 25 mmol/L (22-29); Chloride 101 mmol/L (96-108); Cholesterol 168 mg/dL; Creatinine Clr Calc Pharmacy 61.7; Estimated Glomerular Filt Rate > 60; Glucose Random 103 mg/dL (60-115); HDL Cholesterol 60 mg/dL; LDL Cholesterol Calculated 84 mg/dl; Potassium 4.2 mmol/l (3.3-5.1); Sodium 136 mmol/L (135-145); Triglycerides 121 mg/dL
[2020-05-10 07:24] LABS: Thyroid Stimulating Hormone 1.48 uIU/mL (0.32-4.0)
[2020-05-10] MEDS: Aspirin Enteric Coated 81 MG TABLET.DR PO (07:59)
[2020-05-10] MEDS: 0.9 % Sodium Chloride Flush 3 ML SYRINGE IVFLUSH ×2 (07:59→17:47)
[2020-05-10] MEDS: Metoprolol Succinate ER 50 MG TAB.ER.24H PO (07:59)
[2020-05-10 08:00] VITALS: BP 145/65; PULSE 78; RESP 20; TEMP 36.6; O2SAT 99
[2020-05-10] MEDS: Enoxaparin Sodium 80 MG/0.8 ML SYRINGE SUBCUT ×2 (09:38→21:09)
--- NOTE | 2020-05-10 10:04 | PM.PNCARD ---
Subjective Subjective Date of Service: 05/10/20 Interval history: She still has weakness but no specific cardiac complaints. Review of Systems Reports vertigo and Reports dizziness Cardiovascular: Reports as per HPI, Reports no additional cardiovascular complaints, Denies syncope, Denies rapid heart rate, Denies pedal edema, Denies edema, Denies irregular heart rhythm, Denies claudication, Denies lightheadedness, Denies Loss of Consciousness, Denies radiating jaw, neck or arm pain, Denies palpitations, Denies dyspnea and Denies dyspnea on exertion Respiratory: Denies dyspnea and Denies dyspnea on exertion Reports system reviewed and no additional complaints, except as documented, Reports as per HPI, Reports vertigo, Reports dizziness and Denies syncope Endocrine: Denies palpitations Physical Exam Vital Signs: Last Vital Signs Temp 97.9 F 05/10/20 08:00 Pulse 78 05/10/20 08:00 Resp 20 05/10/20 08:00 BP 145/65 H 05/10/20 08:00 Pulse Ox 99 05/10/20 08:00 Body Mass Index 26.6 Const General: cooperative, comfortable and no acute distress Orientation/consciousness: patient oriented x3 HENMT Other: Unremarkable Neck Neck: Yes normal visual inspection Chest Chest palpation & inspection: normal inspection of the chest Resp Auscultation: clear to auscultation bilaterally, no crackles and no wheezes Cardio Jugular venous distension: no JVD Palpation: normal PMI Heart sounds: S1 normal heart sound present, S2 normal heart sound present, no gallops, no murmurs and no rubs GI Palpation (GI): Soft to palpation Back/Spine/Pelvis Other: unremarkable Skin General skin exam: no rashes or lesions noted Neuro General: patient oriented x3 Extrem General: Yes no clubbing, cyanosis or edema Psych Mental Status: mental status grossly normal Results Labs and Meds Result diagrams: 05/10/20 06:07 05/10/20 06:07 Lab results: Laboratory Results - last 24 hr 05/10/20 05/10/20 05/10/20 06:07 06:07 06:07 WBC 5.7 RBC 3.86 L Hgb 12.1 Hct 36.5 L MCV 94.6 MCH 31.3 MCHC 33.2 RDW 12.0 Plt Count 229 MPV 10.4 Absolute Nucleated RBC 0.000 Nucleated RBC % (auto) 0.0 Sodium 136 Potassium 4.2 Chloride 101 Carbon Dioxide 25 Anion Gap 14 BUN 17 H D Creatinine 0.83 Estim Creat Clear Calc 61.7 Estimated GFR > 60 Random Glucose 103 Calcium 8.8 Triglycerides Cholesterol LDL Cholesterol, Calc HDL Cholesterol TSH Cancelled 1.48 05/10/20 06:07 WBC RBC Hgb Hct MCV MCH MCHC RDW Plt Count MPV Absolute Nucleated RBC Nucleated RBC % (auto) Sodium Potassium Chloride Carbon Dioxide Anion Gap BUN Creatinine Estim Creat Clear Calc Estimated GFR Random Glucose Calcium Triglycerides 121 Cholesterol 168 LDL Cholesterol, Calc 84 HDL Cholesterol 60 TSH Progress Note: A&P Assessment and plan (1) NSTEMI (non-ST elevated myocardial infarction): Status: Acute (2) Dizziness: Status: Acute Assessment and Plan: Elevated troponins noted. First set was 10; 2nd set was 30; 3rd set set is 195. Normal renal function. COVID negative. EKG shows normal sinus rhythm without any acute ischemic findings. Troponin elevation is most likely from secondary phenomenon. Does not appear like an acute plaque rupture. We can treat her with Lovenox for 48 hours as long as no neurological contraindications. Otherwise echocardiogram with normal LV function and without any obvious wall motion abnormalities. She will when she will need a stress test which can be performed as an outpatient. Fall Risk Details Current Medications: Current Medications Generic Name Dose Route Start Last Admin Trade Name Freq PRN Reason Stop Dose Admin Albuterol Sulfate 2 puff 05/09/20 08:00 05/10/20 08:07 Albuterol Sulfate 90 Mcg 8 Gm Inhaler INHALE Not Given RQID DEVONTE Aspirin 81 mg 05/09/20 09:55 05/10/20 07:59 Aspirin Enteric Coated 81 Mg Tablet. PO 81 mg DAILY DEVONTE Administration Atorvastatin Calcium 80 mg 05/10/20 21:00 Atorvastatin Calcium 80 Mg Tablet PO BEDTIME DEVONTE Enoxaparin Sodium 80 mg 05/10/20 09:00 05/10/20 09:38 Enoxaparin Sodium 80 Mg/0.8 Ml Syringe SUBCUT 80 mg Q12H DEVONTE Administration Meclizine HCl 12.5 mg 05/09/20 02:40 05/09/20 11:07 Meclizine Hcl 12.5 Mg Tablet PO 12.5 mg TID PRN Administration Shortness Of Breath Or Wheezing Metoprolol Succinate 50 mg 05/09/20 09:00 05/10/20 07:59 Metoprolol Succinate Er 50 Mg Tab.Er.24h PO 50 mg DAILY DEVONTE Administration Protocol Sodium Chloride 3 ml 05/09/20 08:00 05/10/20 07:59 0.9 % Sodium Chloride Flush 3 Ml Syringe IVFLUSH 3 ml QSHIFT DEVONTE Administration Time Spent With Patient Time: Total time spent is greater than 50% in coordination of care (as documented) at patient's floor/unit and/or counseling patient: Time with patient: less than 15 minutes
[2020-05-10 10:06] VITALS: BP 147/70; PULSE 78; RESP 18; TEMP 36.2; O2SAT 98
[2020-05-10 10:14] LABS: Hematocrit 40.3 % (37-47); Hemoglobin 13.4 g/dl (12.0-16.0); Mean Corpuscular HGB Conc 33.3 g/dl (31.0-35.0); Mean Corpuscular Hemoglobin 31.2 pg (27.0-33.0); Mean Corpuscular Volume 93.9 fL (80-98); Mean Platelet Volume 10.6 fL (9.4-12.3); Platelet Count 259 X10*3/uL (160-400); Red Blood Count 4.29 X10*6/uL (4.20-5.50); Red Cell Distribution Width 12.1 % (11.0-16.0); White Blood Count 6.8 X10*3/uL (4.8-10.8)
[2020-05-10 10:28] LABS: INTERNATIONAL NORM RATIO 0.9 (0.9-1.1); Prothrombin Time 10.8 SEC (10.8-13.0)
[2020-05-10 10:31] LABS: Partial Thromboplastin Time 33.4 SEC (24.1-38.0)
--- NOTE | 2020-05-10 11:01 | MHC.CM.PN ---
PT is recommending acute rehab; referrals made to 3 acute rehab facilities in this area.CM will continue to follow for dc planning.
--- NOTE | 2020-05-10 12:44 | MHC.CM.PN ---
CM was unable to reach Patient by phone (Heidi brooks); CM spoke with Daughter/Nicki regarding PT's recommendation for dc to acute rehab setting. Nicki will discuss choices with Patient and CM should contact Nicki for the final facility choice. CM will follow.
--- NOTE | 2020-05-10 14:30 | PC.NURSE ---
PT HAD A MOMENT OF BRADYCARDIA HR 32, DIAPHORETIC, SLURRING OF SPEECH, FOLLOWING LOVENOX INJECTION, PT BACK TO BED, VSS, DR EDWARD AT BEDSIDE, PT ELIANE KING , DR GONZALEZ ALSO AWARE, ABOUT 1015 THIS AM, HAS BEEN FINE SINCE EPISODE
[2020-05-10 15:55] VITALS: BP 155/64; PULSE 61; RESP 19; TEMP 36; O2SAT 98
--- NOTE | 2020-05-10 16:40 | HO.PM.IMPN ---
Subjective Subjective Date of Service: 05/10/20 Interval History: the patient was seen and evaluated this morning Laying in bed, feels comfortable Denies any fever, chills or shortness of breath Left upper extremity weakness seems but surely Better And an episode of what seems like vasovagal attack after receiving a dose of Lovenox No reported other overnight events. Systemic review: No fever, chills or weakness No chest pain, palpitation No shortness of breath or coughing No abdominal pain, nausea or vomiting No urinary symptoms No any rash or wounds Physical Exam Vital Signs: Vital Signs: Last Vital Signs Temp 96.8 F 05/10/20 15:55 Pulse 61 05/10/20 15:55 Resp 19 05/10/20 15:55 BP 155/64 H 05/10/20 15:55 Pulse Ox 98 05/10/20 15:55 Body Mass Index 26.6 Constitutional : Alert, oriented, not in distress Neck : Normal inspection, Supple Cardiovascular : RRR, S1 S2, no lower extremity edema Respiratory : Good bilateral air entry, no crackles, wheezes or rhonchi Gastrointestinal: soft, lax, Normal bowel sounds, Non tender Skin : Warm/Dry, No rash Neurological : Alert & oriented x3, right-sided weakness more noted on the right upper extremity Objective Data Current Medications Generic Name Dose Route Start Last Admin Trade Name Freq PRN Reason Stop Dose Admin Albuterol Sulfate 2 puff 05/09/20 08:00 05/10/20 14:39 Albuterol Sulfate 90 Mcg 8 Gm Inhaler INHALE Not Given RQID DEVONTE Aspirin 81 mg 05/09/20 09:55 05/10/20 07:59 Aspirin Enteric Coated 81 Mg Tablet. PO 81 mg DAILY DEVONTE Administration Atorvastatin Calcium 80 mg 05/10/20 21:00 Atorvastatin Calcium 80 Mg Tablet PO BEDTIME DEVONTE Enoxaparin Sodium 80 mg 05/10/20 09:00 05/10/20 09:38 Enoxaparin Sodium 80 Mg/0.8 Ml Syringe SUBCUT 80 mg Q12H DEVONTE Administration Meclizine HCl 12.5 mg 05/09/20 02:40 05/09/20 11:07 Meclizine Hcl 12.5 Mg Tablet PO 12.5 mg TID PRN Administration Shortness Of Breath Or Wheezing Metoprolol Succinate 50 mg 05/09/20 09:00 05/10/20 07:59 Metoprolol Succinate Er 50 Mg Tab.Er.24h PO 50 mg DAILY DEVONTE Administration Protocol Sodium Chloride 3 ml 05/09/20 08:00 05/10/20 07:59 0.9 % Sodium Chloride Flush 3 Ml Syringe IVFLUSH 3 ml QSHIFT DEVONTE Administration Labs CBC & Chem 7: 05/10/20 09:13 05/10/20 06:07 Assessment and Plan (1) Dizziness: Status: Acute Assessment and Plan: 80-year-old female with a past medical history of hypertension, hyperlipidemia, vertigo, asthma presented to the hospital with a chief complaint of dizziness. Patient also noted to have elevated troponin. Patient denied any chest pain. Admitted to the hospital for further management. Acute stroke Reportedly CT head and CT head and neck showed no acute findings Noted on MRI: few small acute infarcts within the vascular territory the right anterior cerebral artery. Started on baby aspirin Increased dose of atorvastatin to 80 mg Discontinue meclizine p.r.n. Neurology input appreciated NSTEMI In troponin trended up Cardiology recommended treatment with 48 hours of Lovenox 1st dose of Lovenox missed yesterday, reported to the pharmacy to look into the reason for that Hypertension/hyperlipidemia: Continue home medications DVT PPX Lovenox
[2020-05-10] MEDS: Albuterol Sulfate 90 MCG 8 GM INHALER 2 PUFF INHALE (20:47)
[2020-05-10] MEDS: Atorvastatin Calcium 80 MG TABLET PO (21:09)
[2020-05-11] VITALS (9 sets, daily range): BP systolic 124–163; BP diastolic 57–70; PULSE 67–93; RESP 17–19; TEMP 35.9–37.1; O2SAT 96–99
[2020-05-11] MEDS: 0.9 % Sodium Chloride Flush 3 ML SYRINGE IVFLUSH ×3 (00:26→15:58)
[2020-05-11 05:40] LABS: Hematocrit 37.5 % (37-47); Hemoglobin 12.5 g/dl (12.0-16.0); Mean Corpuscular HGB Conc 33.3 g/dl (31.0-35.0); Mean Corpuscular Hemoglobin 31.4 pg (27.0-33.0); Mean Corpuscular Volume 94.2 fL (80-98); Mean Platelet Volume 10.6 fL (9.4-12.3); Platelet Count 247 X10*3/uL (160-400); Red Blood Count 3.98 X10*6/uL (4.20-5.50); Red Cell Distribution Width 11.9 % (11.0-16.0); White Blood Count 5.7 X10*3/uL (4.8-10.8)
[2020-05-11 05:50] LABS: Anion Gap 14 (12-20); Blood Urea Nitrogen 20 mg/dL (9-16); Calcium 8.9 mg/dL (8.4-10.2); Carbon Dioxide 27 mmol/L (22-29); Chloride 100 mmol/L (96-108); Creatinine Clr Calc Pharmacy 63.2; Estimated Glomerular Filt Rate > 60; Glucose Random 100 mg/dL (60-115); Potassium 4.2 mmol/l (3.3-5.1); Sodium 137 mmol/L (135-145)
[2020-05-11] MEDS: Albuterol Sulfate 90 MCG 8 GM INHALER 2 PUFF INHALE ×3 (07:45→18:59)
[2020-05-11] MEDS: Metoprolol Succinate ER 50 MG TAB.ER.24H PO (08:08)
[2020-05-11] MEDS: Enoxaparin Sodium 80 MG/0.8 ML SYRINGE SUBCUT ×2 (08:08→21:04)
[2020-05-11] MEDS: Aspirin Enteric Coated 81 MG TABLET.DR PO (08:08)
[2020-05-11 08:52] LABS: Prothrombin Time 11.7 SEC (10.8-13.0)
--- NOTE | 2020-05-11 11:24 | PM.PNCARD ---
Subjective Subjective Date of Service: 05/11/20 Interval history: She still has some weakness but otherwise feels okay. Review of Systems Review of Systems Yes all other systems are reviewed and are negative Reports vertigo and Reports dizziness Cardiovascular: Reports as per HPI, Reports no additional cardiovascular complaints, Denies Abdominal Cramping after Meds, Denies chest pain, Denies chest pain at rest, Denies chest pain with activity, Denies Epigastric Pain, Denies syncope, Denies rapid heart rate, Denies pedal edema, Denies edema, Denies lightheadedness, Denies Loss of Consciousness, Denies radiating jaw, neck or arm pain, Denies dyspnea, Denies dyspnea on exertion and Denies orthopnea Respiratory: Denies dyspnea and Denies dyspnea on exertion Reports system reviewed and no additional complaints, except as documented, Reports as per HPI, Reports vertigo, Reports dizziness and Denies syncope Physical Exam Vital Signs: Last Vital Signs Temp 98 F 05/11/20 07:03 Pulse 67 05/11/20 08:08 Resp 18 05/11/20 07:03 BP 163/68 H 05/11/20 08:08 Pulse Ox 97 05/11/20 07:03 Body Mass Index 26.6 Const General: cooperative, comfortable and no acute distress Orientation/consciousness: patient oriented x3 HENMT Other: Unremarkable Neck Neck: Yes normal visual inspection Chest Chest palpation & inspection: normal inspection of the chest Resp Auscultation: clear to auscultation bilaterally, no crackles and no wheezes Cardio Jugular venous distension: no JVD Palpation: normal PMI Heart sounds: S1 normal heart sound present, S2 normal heart sound present, no gallops, no murmurs and no rubs GI Palpation (GI): Soft to palpation Back/Spine/Pelvis Other: unremarkable Skin General skin exam: no rashes or lesions noted Neuro General: patient oriented x3 Extrem General: Yes no clubbing, cyanosis or edema Psych Mental Status: mental status grossly normal Results Labs and Meds Result diagrams: 05/11/20 04:15 05/11/20 04:15 Lab results: Laboratory Results - last 24 hr 05/11/20 05/11/20 05/11/20 04:15 04:15 08:06 WBC 5.7 RBC 3.98 L Hgb 12.5 Hct 37.5 MCV 94.2 MCH 31.4 MCHC 33.3 RDW 11.9 Plt Count 247 MPV 10.6 Absolute Nucleated RBC 0.000 Nucleated RBC % (auto) 0.0 PT 11.7 INR 1.0 Sodium 137 Potassium 4.2 Chloride 100 Carbon Dioxide 27 Anion Gap 14 BUN 20 H Creatinine 0.81 Estim Creat Clear Calc 63.2 Estimated GFR > 60 Random Glucose 100 Calcium 8.9 Progress Note: A&P Assessment and plan (1) NSTEMI (non-ST elevated myocardial infarction): Status: Acute (2) Dizziness: Status: Acute (3) Sinus bradycardia: Status: Acute Assessment and Plan: Elevated troponins noted. First set was 10; 2nd set was 30; 3rd set set is 195. Normal renal function. COVID negative. EKG shows normal sinus rhythm without any acute ischemic findings. Troponin elevation is most likely from secondary phenomenon. Does not appear like an acute plaque rupture. We can treat her with Lovenox for 48 hours as long as no neurological contraindications. There was an episode of profound bradcardia yesterday in the setting of Lovenox injection, that is supsected vagal effect. Today, telemetry is unremarkable. Otherwise echocardiogram with normal LV function and without any obvious wall motion abnormalities. Upon d/c, we will arrange stress test. Fall Risk Details Current Medications: Current Medications Generic Name Dose Route Start Last Admin Trade Name Freq PRN Reason Stop Dose Admin Albuterol Sulfate 2 puff 05/09/20 08:00 05/11/20 11:13 Albuterol Sulfate 90 Mcg 8 Gm Inhaler INHALE 2 puff RQID DEVONTE Administration Aspirin 81 mg 05/09/20 09:55 05/11/20 08:08 Aspirin Enteric Coated 81 Mg Tablet. PO 81 mg DAILY DEVONTE Administration Atorvastatin Calcium 80 mg 05/10/20 21:00 05/10/20 21:09 Atorvastatin Calcium 80 Mg Tablet PO 80 mg BEDTIME DEVONTE Administration Enoxaparin Sodium 80 mg 05/10/20 09:00 05/11/20 08:08 Enoxaparin Sodium 80 Mg/0.8 Ml Syringe SUBCUT 80 mg Q12H DEVONTE Administration Meclizine HCl 12.5 mg 05/09/20 02:40 05/09/20 11:07 Meclizine Hcl 12.5 Mg Tablet PO 12.5 mg TID PRN Administration Shortness Of Breath Or Wheezing Metoprolol Succinate 50 mg 05/09/20 09:00 05/11/20 08:08 Metoprolol Succinate Er 50 Mg Tab.Er.24h PO 50 mg DAILY DEVONTE Administration Protocol Sodium Chloride 3 ml 05/09/20 08:00 05/11/20 08:08 0.9 % Sodium Chloride Flush 3 Ml Syringe IVFLUSH 3 ml QSHIFT DEVONTE Administration Time Spent With Patient Time: Total time spent is greater than 50% in coordination of care (as documented) at patient's floor/unit and/or counseling patient: Time with patient: 15 - 24 minutes
--- NOTE | 2020-05-11 11:38 | MHC.CM.PN ---
Per ROUNDS discussion, Patient will need one more day of anticoagulation and then likely ready for dc to Acute Rehab. CM will follow for dc planning and the possible need to adjust the dc plan.
--- NOTE | 2020-05-11 13:02 | HO.PM.IMPN ---
Subjective Subjective Date of Service: 05/11/20 Interval History: the patient was seen and evaluated this morning Laying in bed, feels comfortable Denies any fever, chills or shortness of breath Left upper extremity weakness seems Better No reported other overnight events. Systemic review: No fever, chills or weakness No chest pain, palpitation No shortness of breath or coughing No abdominal pain, nausea or vomiting No urinary symptoms No any rash or wounds Physical Exam Vital Signs: Vital Signs: Last Vital Signs Temp 97 F 05/11/20 11:42 Pulse 72 05/11/20 11:42 Resp 18 05/11/20 11:42 BP 131/57 L 05/11/20 11:42 Pulse Ox 99 05/11/20 11:42 Body Mass Index 26.6 Constitutional : Alert, oriented, not in distress Neck : Normal inspection, Supple Cardiovascular : RRR, S1 S2, no lower extremity edema Respiratory : Good bilateral air entry, no crackles, wheezes or rhonchi Gastrointestinal: soft, lax, Normal bowel sounds, Non tender Skin : Warm/Dry, No rash Neurological : Alert & oriented x3, right-sided weakness more noted on the right upper extremity Objective Data Current Medications Generic Name Dose Route Start Last Admin Trade Name Freq PRN Reason Stop Dose Admin Albuterol Sulfate 2 puff 05/09/20 08:00 05/11/20 11:13 Albuterol Sulfate 90 Mcg 8 Gm Inhaler INHALE 2 puff RQID DEVONTE Administration Aspirin 81 mg 05/09/20 09:55 05/11/20 08:08 Aspirin Enteric Coated 81 Mg Tablet.Dr PO 81 mg DAILY DEVONTE Administration Atorvastatin Calcium 80 mg 05/10/20 21:00 05/10/20 21:09 Atorvastatin Calcium 80 Mg Tablet PO 80 mg BEDTIME DEVONTE Administration Enoxaparin Sodium 80 mg 05/10/20 09:00 05/11/20 08:08 Enoxaparin Sodium 80 Mg/0.8 Ml Syringe SUBCUT 80 mg Q12H DEVONTE Administration Meclizine HCl 12.5 mg 05/09/20 02:40 05/09/20 11:07 Meclizine Hcl 12.5 Mg Tablet PO 12.5 mg TID PRN Administration Shortness Of Breath Or Wheezing Metoprolol Succinate 50 mg 05/09/20 09:00 05/11/20 08:08 Metoprolol Succinate Er 50 Mg Tab.Er.24h PO 50 mg DAILY DEVONTE Administration Protocol Sodium Chloride 3 ml 05/09/20 08:00 05/11/20 08:08 0.9 % Sodium Chloride Flush 3 Ml Syringe IVFLUSH 3 ml QSHIFT DEVONTE Administration Labs CBC & Chem 7: 05/11/20 04:15 05/11/20 04:15 Assessment and Plan (1) Dizziness: Status: Acute (2) Acute ischemic stroke: Status: Acute (3) NSTEMI (non-ST elevated myocardial infarction): Status: Acute (4) Sinus bradycardia: Status: Acute Assessment and Plan: 80-year-old female with a past medical history of hypertension, hyperlipidemia, vertigo, asthma presented to the hospital with a chief complaint of dizziness. Patient also noted to have elevated troponin. Patient denied any chest pain. Admitted to the hospital for further management. Acute stroke Reported in CT head and CT head and neck showed no acute findings Noted on MRI: few small acute infarcts within the vascular territory the right anterior cerebral artery. Started on baby aspirin Increased dose of atorvastatin to 80 mg Discontinue meclizine Neurology input appreciated NSTEMI troponin trended up Cardiology recommended treatment with 48 hours of Lovenox Last Lovenox dose 05/12 morning Hypertension/hyperlipidemia: Continue home medications DVT PPX Lovenox Dispo; Ready to dc after recieving last Lovenox dose
[2020-05-11] MEDS: Acetaminophen 325 MG TABLET 650 MG PO (17:29)
[2020-05-11] MEDS: Atorvastatin Calcium 80 MG TABLET PO (21:04)
[2020-05-12] MEDS: 0.9 % Sodium Chloride Flush 3 ML SYRINGE IVFLUSH ×2 (01:11→09:05)
[2020-05-12 03:58] VITALS: BP 131/63; PULSE 75; RESP 16; TEMP 36.7; O2SAT 97
[2020-05-12 08:00] VITALS: BP 149/61; PULSE 87; RESP 18; TEMP 36.5; O2SAT 98
[2020-05-12 09:05] VITALS: BP 149/61; PULSE 87
[2020-05-12] MEDS: Aspirin Enteric Coated 81 MG TABLET.DR PO (09:05)
[2020-05-12] MEDS: Metoprolol Succinate ER 50 MG TAB.ER.24H PO (09:05)
--- NOTE | 2020-05-12 10:14 | P.DS_ITS ---
DS: Providers Provider Date of admission: 05/09/20 02:36 Primary care physician: Unknown Physician Consults: 05/09/20 02:39 Consult to Cardiology Routine Consulting Provider: Seth Bentley Reason for consultation: High troponins Has provider been notified: No Consult to Neurology Routine Consulting Provider: [facility] Reason for consultation: dizziness Has provider been notified: No DS: Diagnosis Discharge Diagnosis (1) Acute ischemic stroke: Status: Acute (2) NSTEMI (non-ST elevated myocardial infarction): Status: Acute (3) Dizziness: Status: Acute DS: Medications Discharge Medications Home Medications: Home Medications Medication Instructions Recorded Confirmed albuterol sulfate [ProAir HFA] 2 puff PO QID 05/09/20 05/09/20 metoprolol succinate 1 tab PO DAILY 05/09/20 05/09/20 Previous Rx's Medication Instructions Recorded aspirin 81 mg PO DAILY #30 tab 05/12/20 atorvastatin 80 mg PO BEDTIME #30 tab 05/12/20 DS: Summary Hospital Course Hospital Course: HPI from admission H&P: 80-year-old female with a past medical history of hypertension, hyperlipidemia, vertigo, asthma presented to the hospital with a chief complaint of dizziness. Patient reports that she has intermittent episodes of dizziness that lasts for about have day. She had similar episode of dizziness distended started on 05/08 and a.m. at 3:00 a.m., symptoms lasted until evening and has not been improving even after she took her home meclizine hence decided to come to the ER for further help. Patient mentions that every time she had dizziness she feels like room is spinning and also sways to one side. Denies any chest pain palpitations. Denies any numbness tingling or focal weakness. Denies any GI or symptoms. Review of all other systems is negative except mentioned above ER course: Per ER team patient the exam was essentially nonfocal except for mild degree stent on the left lower extremity, sensations intact, CT head and CT neck reportedly showed no acute findings. Patient initial troponin was 10 the follow-up troponin was 30; EKG was nonischemic; cardiology was notified-Dr. benjamin mentioned no anticoagulation needed at this point, admitted telemetry, repeat troponins in 8 hours. Hospital Course Patient underwent workup for stroke which included CT of the head and neck which was negative. MRI showed a few small acute infarcts within the vascular territory of the right anterior cerebral artery. There was also chronic small- vessel ischemic changes noted as well. Her statin was increased from simvastatin to Lipitor 80 mg at bedtime. She was initiated on aspirin 81 mg. Patient also was noted to have any increasing high sensitivity troponin level, which was initially 10.6 and peaked at 194.9. This was deemed a secondary event. She was treated with 48 hours of anticoagulation and underwent a 2D echo which did not show any regional wall motion abnormality. Cardiology was consulted and recommended outpatient stress testing. For stroke, patient was evaluated by PT and OT who recommended acute inpatient rehab which the patient was agreeable to and subsequently transferred to. Time Spent with Patient Time attestation: Total time spent providing and/or coordinating discharge services: Quality: Stroke Pt Provided Written Stroke Discharge Instructions: Patient given written information Physical Exam Vital Signs: Vital Signs: Last Vital Signs Temp 97.7 F 05/12/20 08:00 Pulse 87 05/12/20 09:05 Resp 18 05/12/20 08:00 BP 149/61 H 05/12/20 09:05 Pulse Ox 98 05/12/20 08:00 Body Mass Index 26.6 Const: Other: General - no acute distress, appears comfortable Cardiovascular - regular rate and rhythm, S1-S2 Lungs - normal respiratory effort, clear to auscultation bilaterally, no wheezing Abdomen - soft, nontender, no rebound or guarding Extremities - no edema bilaterally Neuro - awake and alert, R delbert-plegia, no obvious facial asymmetry; DS: Data Data Completed and Pending Labs on day of discharge: Laboratory Last Values WBC 5.7 X10*3/uL (4.8-10.8) 05/11/20 04:15 RBC 3.98 X10*6/uL (4.20-5.50) L 05/11/20 04:15 Hgb 12.5 g/dl (12.0-16.0) 05/11/20 04:15 Hct 37.5 % (37-47) 05/11/20 04:15 MCV 94.2 fL (80-98) 05/11/20 04:15 MCH 31.4 pg (27.0-33.0) 05/11/20 04:15 MCHC 33.3 g/dl (31.0-35.0) 05/11/20 04:15 RDW 11.9 % (11.0-16.0) 05/11/20 04:15 Plt Count 247 X10*3/uL (160-400) 05/11/20 04:15 MPV 10.6 fL (9.4-12.3) 05/11/20 04:15 Immature Gran % (Auto) 0.1 % (0.0-0.4) 05/09/20 08:00 Neut % (Auto) 58.0 % (45-73) 05/09/20 08:00 Lymph % (Auto) 28.8 % (20-40) 05/09/20 08:00 [place] % (Auto) 10.5 % (2-11) 05/09/20 08:00 Eos % (Auto) 2.2 % (0-4) 05/09/20 08:00 Baso % (Auto) 0.4 % (0-2) 05/09/20 08:00 Lymph # (Auto) 2.0 X10*3/uL (1.2-4.9) 05/09/20 08:00 Wy[place] # (Auto) 0.7 X10*3/uL (0.1-1.2) 05/09/20 08:00 Eos # (Auto) 0.2 X10*3/uL (0.0-0.4) 05/09/20 08:00 Baso # (Auto) 0.0 X10*3/uL (0.0-0.2) 05/09/20 08:00 Abs Immat Gran (auto) 0.01 X10*3/uL (0.00-0.03) 05/09/20 08:00 Absolute Neuts (auto) 4.0 X10*3/uL (2.0-8.3) 05/09/20 08:00 Absolute Nucleated RBC 0.000 X10*3/uL (0.0-0.012) 05/11/20 04:15 Nucleated RBC % (auto) 0.0 /100WBC (0.0-0.2) 05/11/20 04:15 PT 11.7 SEC (10.8-13.0) 05/11/20 08:06 INR 1.0 (0.9-1.1) 05/11/20 08:06 APTT 33.4 SEC (24.1-38.0) 05/10/20 09:13 Sodium 137 mmol/L (135-145) 05/11/20 04:15 Potassium 4.2 mmol/l (3.3-5.1) 05/11/20 04:15 Chloride 100 mmol/L (96-108) 05/11/20 04:15 Carbon Dioxide 27 mmol/L (22-29) 05/11/20 04:15 Anion Gap 14 (-20) 05/11/20 04:15 BUN 20 mg/dL (9-16) H 05/11/20 04:15 Creatinine 0.81 mg/dL (0.5-1.4) 05/11/20 04:15 Estim Creat Clear Calc 63.2 05/11/20 04:15 Estimated GFR > 60 05/11/20 04:15 Random Glucose 100 mg/dL (60-115) 05/11/20 04:15 Calcium 8.9 mg/dL (8.4-10.2) 05/11/20 04:15 Magnesium 2.0 mg/dL (1.6-2.6) 05/09/20 08:00 Total Bilirubin 0.6 mg/dL (0.0-1.0) 05/08/20 21:07 AST 15 U/L (5-31) 05/08/20 21:07 ALT 16 U/L (0-31) 05/08/20 21:07 Alkaline Phosphatase 66 U/L (39-117) 05/08/20 21:07 Troponin I High Sens 194.9 ng/L (<3.5-17.0) H D 05/09/20 08:00 Total Protein 7.2 g/dL (6.5-8.0) 05/08/20 21:07 Albumin 4.3 g/dL (3.5-5.0) 05/08/20 21:07 Triglycerides 121 mg/dL 05/10/20 06:07 Cholesterol 168 mg/dL 05/10/20 06:07 LDL Cholesterol, Calc 84 mg/dl 05/10/20 06:07 HDL Cholesterol 60 mg/dL 05/10/20 06:07 TSH 1.48 uIU/mL (0.32-4.0) 05/10/20 06:07 TSH Cancelled 05/10/20 06:07 Urine Color YELLOW 05/08/20 23:54 Urine Appearance CLEAR 05/08/20 23:54 Urine pH 7.0 (5.0-8.0) 05/08/20 23:54 Ur Specific [place] 1.010 (1.005-1.025) 05/08/20 23:54 Urine Protein NEG MG/DL (NEG-TRACE) 05/08/20 23:54 Urine Glucose (UA) NEG MG/DL (NEG) 05/08/20 23:54 Urine Ketones NEG MG/DL (NEG) 05/08/20 23:54 Urine Blood NEG (NEG) 05/08/20 23:54 Urine Nitrite NEG (NEG) 05/08/20 23:54 Ur Leukocyte Esterase NEG (NEG) 05/08/20 23:54 Coronavirus (PCR) Cancelled 05/09/20 02:15 COVID-19 (TUNG) Negative (Negative) 05/09/20 02:15 COVID-19 Clin Com See Note 05/09/20 02:15 Influenza Type A (PCR) Cancelled 05/09/20 02:15 Influenza Type B (PCR) Cancelled 05/09/20 02:15 RSV RNA Qual (PCR) Cancelled 05/09/20 02:15 Imaging MRI - head: Radiologist's impression: IMPRESSION: There are a few small acute infarcts within the vascular territory the right anterior cerebral artery. These findings are superimposed upon scattered chronic small vessel ischemic changes within the periventricular white matter. cta head/neck: Radiologist's impression: IMPRESSION: - No acute intracranial findings. No acute infarcts. - No acute arterial occlusions and no significant arterial stenoses within the head or neck. - Advanced cervical spondylosis. Discharge Plan Discharge Patient Disposition: Xfer Inpatient Rehab Fac Referrals: [facility] [Outside] Physician,Unknown [Primary Care Provider] - Discharge Medications: New atorvastatin 80 mg Tablet 80 mg PO BEDTIME Qty: 30 RF: 0 aspirin 81 mg Tablet,Delayed Release (Dr/Ec) 81 mg PO DAILY Qty: 30 RF: 0 Continued metoprolol succinate 50 mg tablet extended release 24 hr 1 tab PO DAILY RF: 0 albuterol sulfate [ProAir HFA] 90 mcg/actuation HFA aerosol inhaler 2 puff PO QID RF: 0 Discontinued meclizine 12.5 mg tablet 1 tab PO TID PRN (Reason: Shortness Of Breath Or Wheezing) RF: 0 simvastatin 20 mg tablet 1 tab PO BEDTIME RF: 0 Discharge Orders: Discharge Order (Routine); Ordered 05/12/20 Ordered By: Arthur Ramírez Diet: advance to usual diet, low fat, low cholesterol and low salt diet Activity on Discharge: As tolerated Visit Report Forms: Patient Portal Discharge page Care Plan Goals: To stay healthy and out of the hospital. Health Concerns: Stroke Possible CAD Plan of Treatment: Stroke - take lipitor 80mg daily (stop taking simvastatin) Possible CAD - take aspirin 81mg daily, continue metoprolol, stop simvastatin and start lipitor. You will have f/u with cardiology clinic at [facility] for stress testing.
--- NOTE | 2020-05-12 10:22 | MHC.CM.PN ---
Patient has been medically cleared for dc today to Acute rehab; [facility] is Patient's first choice and she will leave here today at 1 PM and travel via [facility] to [facility]. Patient and Daughter are aware of and in agreement with the dc plan. Daughter/HCP has requested that another IMM NOT be mailed to her again.
[2020-05-12 11:05] VITALS: PULSE 70; O2SAT 98
[2020-05-12] MEDS: Albuterol Sulfate 90 MCG 8 GM INHALER 2 PUFF INHALE (11:05)
--- NOTE | 2020-05-12 11:07 | PM.PNCARD ---
Subjective Subjective Date of Service: 05/12/20 Interval history: She states that she feels okay. No specific cardiac complaints like chest pain or shortness of breath. She still has left-sided weakness. Some discomfort to the leg as well. Review of Systems Review of Systems Yes all other systems are reviewed and are negative Reports vertigo and Reports dizziness Cardiovascular: Reports as per HPI, Denies chest pain, Denies chest pain at rest, Denies chest pain with activity, Denies Epigastric Pain, Denies diaphoresis, Denies syncope, Denies rapid heart rate, Denies pedal edema, Denies edema, Denies irregular heart rhythm, Denies leg ulcers, Denies leg edema, Denies palpitations, Denies dyspnea, Denies dyspnea on exertion, Denies orthopnea and Denies slow heart rate Respiratory: Denies dyspnea and Denies dyspnea on exertion Reports system reviewed and no additional complaints, except as documented, Reports as per HPI, Reports vertigo, Reports dizziness and Denies syncope Endocrine: Denies palpitations Physical Exam Vital Signs: Last Vital Signs Temp 97.7 F 05/12/20 08:00 Pulse 70 05/12/20 11:05 Resp 18 05/12/20 08:00 BP 149/61 H 05/12/20 09:05 Pulse Ox 98 05/12/20 08:00 Body Mass Index 26.6 Const General: cooperative, comfortable and no acute distress Orientation/consciousness: patient oriented x3 HENMT Other: Unremarkable Neck Neck: Yes normal visual inspection Chest Chest palpation & inspection: normal inspection of the chest Resp Auscultation: clear to auscultation bilaterally, no crackles and no wheezes Cardio Jugular venous distension: no JVD Palpation: normal PMI Heart sounds: S1 normal heart sound present, S2 normal heart sound present, no gallops, no murmurs and no rubs GI Palpation (GI): Soft to palpation Back/Spine/Pelvis Other: unremarkable Skin General skin exam: no rashes or lesions noted Neuro General: patient oriented x3 Extrem General: Yes no clubbing, cyanosis or edema Psych Mental Status: mental status grossly normal Results Labs and Meds Result diagrams: 05/11/20 04:15 05/11/20 04:15 Progress Note: A&P Assessment and plan (1) NSTEMI (non-ST elevated myocardial infarction): Status: Acute (2) Dizziness: Status: Acute (3) Sinus bradycardia: Status: Acute Assessment and Plan: Elevated troponins noted. First set was 10; 2nd set was 30; 3rd set set is 195. Normal renal function. COVID negative. EKG shows normal sinus rhythm without any acute ischemic findings. Troponin elevation is most likely from secondary phenomenon. Does not appear like an acute plaque rupture. We can treat her with Lovenox for 48 hours as long as no neurological contraindications. There was an episode of profound bradcardia 2 days ago in the setting of Lovenox injection, that is suspected vagal effect. Today, telemetry is unremarkable. Otherwise echocardiogram with normal LV function and without any obvious wall motion abnormalities. Upon d/c, we will followup and arrange stress test. Fall Risk Details Current Medications: Current Medications Generic Name Dose Route Start Last Admin Trade Name Freq PRN Reason Stop Dose Admin Acetaminophen 650 mg 05/11/20 17:07 05/11/20 17:29 Acetaminophen 325 Mg Tablet PO 650 mg Q8H PRN Administration Headache Albuterol Sulfate 2 puff 05/09/20 08:00 05/12/20 11:05 Albuterol Sulfate 90 Mcg 8 Gm Inhaler INHALE 2 puff RQID DEVONTE Administration Aspirin 81 mg 05/09/20 09:55 05/12/20 09:05 Aspirin Enteric Coated 81 Mg Tablet.Dr PO 81 mg DAILY DEVONTE Administration Atorvastatin Calcium 80 mg 05/10/20 21:00 05/11/20 21:04 Atorvastatin Calcium 80 Mg Tablet PO 80 mg BEDTIME DEVONTE Administration Metoprolol Succinate 50 mg 05/09/20 09:00 05/12/20 09:05 Metoprolol Succinate Er 50 Mg Tab.Er.24h PO 50 mg DAILY DEVONTE Administration Protocol Sodium Chloride 3 ml 05/09/20 08:00 05/12/20 09:05 0.9 % Sodium Chloride Flush 3 Ml Syringe IVFLUSH 3 ml QSHIFT DEVONTE Administration Time Spent With Patient Time: Total time spent is greater than 50% in coordination of care (as documented) at patient's floor/unit and/or counseling patient: Time with patient: less than 15 minutes
[2020-05-12 11:22] VITALS: BP 146/64; PULSE 88; RESP 18; TEMP 36.2; O2SAT 99
[2020-05-12 11:24] LABS: IDNOW Serial# 9DD0AD1C
[2020-05-12 11:26] LABS: COVID-19 Test Negative (Negative)
== END 2020-05-12 14:50 | DRG 64 ==
LOC: HO.ED 05-09 02:13 → HO.IMC 05-09 04:08
PROVIDERS: Physician Assistant; Student in an Organized Health Care Education/Training Program; Admitting Provider Hospitalist; Emergency Provider Student in an Organized Health Care Education/Training Program; Visit Provider Family Medicine
DX: I63.521 Cerebral infarction due to unspecified occlusion or stenosis of right anterior cerebral artery (principal); I21.4 Non-ST elevation (NSTEMI) myocardial infarction; G81.94 Hemiplegia, unspecified affecting left nondominant side; E78.5 Hyperlipidemia, unspecified; I10 Essential (primary) hypertension; R00.1 Bradycardia, unspecified; Z20.828 Contact with and (suspected) exposure to other viral communicable diseases; R29.700 NIHSS score 0; Z87.891 Personal history of nicotine dependence; Z88.0 Allergy status to penicillin; Z79.82 Long term (current) use of aspirin; Z79.899 Other long term (current) drug therapy
CPT/HCPCS: 0241U; 36415; 70496; 70498; 70551; 80048; 80053; 80061; 81003; 83735; 84443; 84484; 85025; 85027; 85610; 85730; 87635; 93005; 93306; 94640; 96360; 97116; 97162; 97166; 97530; 97535; 99285; J1650; Q9957; Q9967

== ENCOUNTER 2020-06-01 10:33 | Outpatient (REF) | payer MEDICARE, SELFPAY ==
[2020-06-01 13:36] LABS: MANUAL DIFF FLAG NO
[2020-06-01 13:43] LABS: Basophils Percent Auto 0.4 % (0-2); Eosinophils Absolute Auto 0.2 X10*3/uL (0.0-0.4); Eosinophils Percent Auto 2.5 % (0-4); Hematocrit 38.4 % (37-47); Hemoglobin 12.5 g/dl (12.0-16.0); Imm Gran Abs Auto 0.02 X10*3/uL (0.00-0.03); Imm Gran Pct Auto 0.3 % (0.0-0.4); Lymphocytes Absolute Auto 1.4 X10*3/uL (1.2-4.9); Lymphocytes Percent Auto 18.4 % (20-40); Mean Corpuscular HGB Conc 32.6 g/dl (31.0-35.0); Mean Corpuscular Volume 95.3 fL (80-98); Mean Platelet Volume 11.1 fL (9.4-12.3); Monocytes Absolute Auto 0.6 X10*3/uL (0.1-1.2); Monocytes Percent Auto 8.3 % (2-11); Neutrophils Absolute Auto 5.4 X10*3/uL (2.0-8.3); Neutrophils Percent Auto 70.1 % (45-73); Platelet Count 245 X10*3/uL (160-400); Red Blood Count 4.03 X10*6/uL (4.20-5.50); Red Cell Distribution Width 12.2 % (11.0-16.0); White Blood Count 7.7 X10*3/uL (4.8-10.8)
[2020-06-01 14:11] LABS: Alanine Aminotransferase 15 U/L (0-31); Albumin Level 4.3 g/dL (3.5-5.0); Alkaline Phosphatase 63 U/L (39-117); Anion Gap 13 (12-20); Aspartate Amino Transferase 13 U/L (5-31); Bilirubin Total 0.4 mg/dL (0.0-1.0); Blood Urea Nitrogen 19 mg/dL (9-16); Calcium 9.6 mg/dL (8.4-10.2); Carbon Dioxide 29 mmol/L (22-29); Chloride 97 mmol/L (96-108); Estimated Glomerular Filt Rate 59; Glucose Random 97 mg/dL (60-115); Potassium 4.7 mmol/l (3.3-5.1); Sodium 134 mmol/L (135-145); Total Protein 7.2 g/dL (6.5-8.0)
[2020-06-01 14:53] LABS: Vitamin B12 589 pg/mL (200-900)
== END 2020-06-01 10:34 | disposition home or self-care (01) ==
LOC: HO.10HDL 10:33
PROVIDERS: Visit Provider Internal Medicine
DX: Z86.73 Personal history of transient ischemic attack (TIA), and cerebral infarction without residual deficits (principal); R53.83 Other fatigue; I12.9 Hypertensive chronic kidney disease with stage 1 through stage 4 chronic kidney disease, or unspecified chronic kidney disease; N18.2 Chronic kidney disease, stage 2 (mild); E78.00 Pure hypercholesterolemia, unspecified
CPT/HCPCS: 36415; 80053; 82306; 82607; 85025

== ENCOUNTER → 2020-06-02 11:00 | Outpatient (BNVA) | payer MEDICARE, SELFPAY | PROVIDERS: Visit Provider Nurse Practitioner Family | DX: I21.4 Non-ST elevation (NSTEMI) myocardial infarction (principal); I63.9 Cerebral infarction, unspecified | CPT/HCPCS: 99212 ==

== ENCOUNTER → 2020-06-07 09:37 | Outpatient (REF) | payer MEDICARE, SELFPAY ==
--- NOTE | 2020-06-07 | NM_ITS ---
Lexiscan Myocardial perfusion study Indication: NSTEMI Technique: The patient was brought in for a Lexiscan perfusion study on 05/07/2021 and was injected 0.4 mg of Lexiscan intravenously. Within a minute of this injection 30 mCi of sestamibi was given intravenously. Images were obtained using the SPECT gamma camera interlaced with the gating device. Images were obtained in supine position. Resting perfusion study was performed on 06/08/2020. Patient was administered 30 mCi of sestamibi intravenously at rest. Images were then obtained in supine position. Total DLP 98mGy-cm. Images were processed with the software and compared side to side in short axis, horizontal long axis and vertical long axis views. Findings: Raw acquisition was reviewed. The stress perfusion study showed diminished tracer uptake in the anterior apex and adjacent apex. With CT attenuation correction, this improves significant is suggestive of soft tissue attenuation artifact. The gated study shows normal LV systolic function with calculated LVEF of > 75%. LV cavity is normal in size. The gated study shows normal wall thickening and contraction of segments. Resting study shows diminished tracer uptake along the distal part of anterior wall and adjacent apex, similar to the stress acquisition. Gating at rest reveals normal wall motion with ejection fraction at 73%. The findings are consistent with no reversible defects. Fixed defect in the distal anterior wall and adjacent apex that seems to improve with CT attenuation correction suggestive of soft tissue attenuation artifact. NM/NM ced perf SPECT rest & str Impression: 1. Myocardial perfusion imaging study shows no evidence of any ischemia. Fixed defect in the distal anterior wall and adjacent apex that improves with CT attenuation correction and hence suggesting soft tissue artifact. Less likely to be a true defect. 2. Gated LVEF is > 70% during stress and rest. 3. Transient ischemic dilatation not present. EKG component of the test reported separately.
--- NOTE | 2020-06-07 09:40 | CA_ITS ---
Acquisition Time: 2020-06-07 09:45:47 Total Exercise Time: 00:02:00 Test Indications: Screening for CAD Medications: ASA METOPROLOL ATORVASTATIN Protocol: LEXISCAN Max HR: 122 BPM 87% of Pred: 140 BPM Max BP: 126/074 mmHG Max Work Load: 1.0 METS Pharmacological stress test with Lexiscan injection, while sitting and kicking her legs, without anginal symptoms, with isolated PVCs and runs of asymptomatic ventricular bigeminy in recovery, with normotensive response to injection, with nondiagnostic EKG for ischemia. In recovery she reported feeling weird with heaviness in her arms that was treated with Aminophylline 75mg IVP to reverse Lexiscan with improvement in symptoms. Nuclear images pending. Test reviewed with Dr Bentley Referred By: Maria Luz Vance Overread By: MARIA LUZ VANCE
== END ==
LOC: HO.CARD 09:37
PROVIDERS: Visit Provider Nurse Practitioner Family
DX: I21.4 Non-ST elevation (NSTEMI) myocardial infarction (principal)
CPT/HCPCS: 78452; 93017; A9500; J0280; J2785

== ENCOUNTER → 2020-06-09 13:02 | Outpatient (BNVA) | payer MEDICARE, SELFPAY | PROVIDERS: PCP Internal Medicine; Visit Provider Nurse Practitioner Family | DX: I21.4 Non-ST elevation (NSTEMI) myocardial infarction (principal); I63.9 Cerebral infarction, unspecified | CPT/HCPCS: Q3014 ==

== ENCOUNTER 2020-07-25 10:18 | Outpatient (REF) | payer MEDICARE, SELFPAY ==
--- NOTE | ~2020-07-25 | MM_ITS ---
EXAMINATION: MM SCREENING DIGITAL BREAST TOMOSYNTHESIS, BILATERAL CLINICAL INFORMATION: Screening. Asymptomatic. The lifetime risk of breast cancer based on the Tyrer-Cuzick Model is 2%. COMPARISON: Mammography: 07/20/2019, 07/09/2018, 07/05/2017 TECHNIQUE: Digital breast tomosynthesis is performed in both the craniocaudal and mediolateral oblique views along with computer-aided detection (CAD). Synthesized 2D images are generated from the tomosynthesis. FINDINGS: There are scattered areas of fibroglandular density (ACR BI-RADS breast composition Category b). There are no significant masses, abnormal calcifications, or other abnormalities. The axilla and skin contours are unremarkable. No significant changes from prior studies. MM/MM tomosynthesis screening BI IMPRESSION: No mammographic evidence of malignancy. ASSESSMENT: BI-RADS 1: Negative RECOMMENDATION: Routine annual mammography screening. This patient's information was entered into a reminder system with a target due date for their next mammogram.
== END 2020-07-25 10:19 | disposition home or self-care (01) ==
LOC: HO.MAMMO 10:18
PROVIDERS: Visit Provider Internal Medicine
DX: Z12.31 Encounter for screening mammogram for malignant neoplasm of breast (principal)
CPT/HCPCS: 77063; 77067

== ENCOUNTER 2020-07-29 15:27 | Outpatient (REF) | payer MEDICARE, SELFPAY | END 2020-07-29 15:28 | disposition home or self-care (01) | LOC: HO.LAB 15:27 | PROVIDERS: Visit Provider Internal Medicine | DX: Z20.822 Contact with and (suspected) exposure to COVID-19 (principal) | CPT/HCPCS: 36415; C9803; U0003; U0005 ==

== ENCOUNTER 2020-09-09 10:07 | Outpatient (REF) | payer MEDICARE, SELFPAY ==
[2020-09-09 11:13] LABS: MANUAL DIFF FLAG NO
[2020-09-09 11:41] LABS: Basophils Percent Auto 0.6 % (0-2); Eosinophils Absolute Auto 0.1 X10*3/uL (0.0-0.4); Eosinophils Percent Auto 2.5 % (0-4); Hematocrit 37.8 % (37-47); Hemoglobin 12.5 g/dl (12.0-16.0); Imm Gran Abs Auto 0.01 X10*3/uL (0.00-0.03); Imm Gran Pct Auto 0.2 % (0.0-0.4); Lymphocytes Absolute Auto 1.7 X10*3/uL (1.2-4.9); Lymphocytes Percent Auto 31.5 % (20-40); Mean Corpuscular HGB Conc 33.1 g/dl (31.0-35.0); Mean Corpuscular Hemoglobin 31.4 pg (27.0-33.0); Mean Platelet Volume 10.9 fL (9.4-12.3); Monocytes Absolute Auto 0.6 X10*3/uL (0.1-1.2); Neutrophils Absolute Auto 2.8 X10*3/uL (2.0-8.3); Neutrophils Percent Auto 53.2 % (45-73); Platelet Count 219 X10*3/uL (160-400); Red Blood Count 3.98 X10*6/uL (4.20-5.50); White Blood Count 5.3 X10*3/uL (4.8-10.8)
[2020-09-09 11:50] LABS: Alanine Aminotransferase 14 U/L (0-31); Albumin Level 4.3 g/dL (3.5-5.0); Alkaline Phosphatase 69 U/L (39-117); Anion Gap 13 (12-20); Aspartate Amino Transferase 16 U/L (5-31); Bilirubin Total 0.9 mg/dL (0.0-1.0); Blood Urea Nitrogen 19 mg/dL (9-16); Calcium 9.7 mg/dL (8.4-10.2); Carbon Dioxide 28 mmol/L (22-29); Chloride 100 mmol/L (96-108); Estimated Glomerular Filt Rate 59; Glucose Fasting 102 mg/dL (60-99); Potassium 4.9 mmol/L (3.3-5.1); Sodium 136 mmol/L (135-145); Total Protein 7.1 g/dL (6.5-8.0)
[2020-09-09 11:53] LABS: Alanine Aminotransferase 13 U/L (0-31); Aspartate Amino Transferase 15 U/L (5-31); Cholesterol 163 mg/dL; HDL Cholesterol 54 mg/dL; LDL Cholesterol Calculated 80 mg/dl; Triglycerides 147 mg/dL
== END 2020-09-09 10:08 | disposition home or self-care (01) ==
LOC: HO.LAB 10:07
PROVIDERS: Absent Provider Internal Medicine; PCP Internal Medicine; Visit Provider Nurse Practitioner Family
DX: I25.10 Atherosclerotic heart disease of native coronary artery without angina pectoris (principal); E78.00 Pure hypercholesterolemia, unspecified; I12.9 Hypertensive chronic kidney disease with stage 1 through stage 4 chronic kidney disease, or unspecified chronic kidney disease; N18.9 Chronic kidney disease, unspecified
CPT/HCPCS: 36415; 80053; 80061; 84450; 84460; 85025

== ENCOUNTER 2020-11-18 12:28 | Outpatient (REF) | payer MEDICARE, SELFPAY ==
--- NOTE | ~2020-11-18 | XR_ITS ---
EXAMINATION: XR SHOULDER, RIGHT XR ELBOW, RIGHT CLINICAL INFORMATION: Right shoulder and right elbow pain. COMPARISON: None. TECHNIQUE: AP, scapular Y, Grashey, and axillary views of the right shoulder. AP, oblique, and lateral views of the right elbow. FINDINGS: Right Shoulder: Tiny acromioclavicular marginal osteophytes. Tiny glenohumeral marginal osteophytes. No acute fracture or dislocation. No osseous erosion. No abnormal soft tissue calcification. Right Elbow: No acute fracture or dislocation. No significant joint space narrowing or marginal osteophytes. No osseous erosion. No significant joint effusion. Mild soft tissue swelling overlying the posterior olecranon, which could olecranon bursitis. XR/XR shoulder RT min 2V IMPRESSION: RIGHT SHOULDER: Minimal acromioclavicular and glenohumeral osteoarthritis. RIGHT ELBOW: Mild soft tissue swelling overlying the olecranon, which could indicate olecranon bursitis.
--- NOTE | ~2020-11-18 | XR_ITS ---
EXAMINATION: XR SHOULDER, RIGHT XR ELBOW, RIGHT CLINICAL INFORMATION: Right shoulder and right elbow pain. COMPARISON: None. TECHNIQUE: AP, scapular Y, Grashey, and axillary views of the right shoulder. AP, oblique, and lateral views of the right elbow. FINDINGS: Right Shoulder: Tiny acromioclavicular marginal osteophytes. Tiny glenohumeral marginal osteophytes. No acute fracture or dislocation. No osseous erosion. No abnormal soft tissue calcification. Right Elbow: No acute fracture or dislocation. No significant joint space narrowing or marginal osteophytes. No osseous erosion. No significant joint effusion. Mild soft tissue swelling overlying the posterior olecranon, which could olecranon bursitis. XR/XR elbow RT 2V IMPRESSION: RIGHT SHOULDER: Minimal acromioclavicular and glenohumeral osteoarthritis. RIGHT ELBOW: Mild soft tissue swelling overlying the olecranon, which could indicate olecranon bursitis.
== END 2020-11-18 12:29 | disposition home or self-care (01) ==
LOC: HO.XRAY 12:28
PROVIDERS: PCP Internal Medicine; Visit Provider Internal Medicine
DX: M25.511 Pain in right shoulder (principal); M25.521 Pain in right elbow
CPT/HCPCS: 73030; 73070

== ENCOUNTER 2020-12-02 11:14 | Emergency (ER) | payer MEDICARE, SELFPAY ==
[2020-12-02 12:28] VITALS: BP 197/83; PULSE 79; RESP 16; TEMP 36.7; O2SAT 98; BMI 26.6
--- NOTE | 2020-12-02 12:58 | ED_ITS ---
HPI - Extremity Problem General Chief complaint: Extremity Injury, Upper Stated complaint: R SHOULDER PAIN Time Seen by Provider: 12/02/20 12:38 Source: patient Mode of arrival: ambulatory Limitations: no limitations History of Present Illness HPI Narrative: Patient presents to ED for right shoulder pain. Patient and x- ray of shoulder which shows severe arthritis. Patient denies any chest pain, shortness of breath, swelling of extremity, any recent trauma or any. Patient states right-sided shoulder pain radiating down to the hand. Patient also had elbow x-ray recently which showed bursitis. Related Data Home Medications Medication Instructions Recorded Confirmed albuterol sulfate [ProAir HFA] 2 puff PO QID 05/09/20 06/09/20 metoprolol succinate 1 tab PO DAILY 05/09/20 06/09/20 Previous Rx's Medication Instructions Recorded aspirin 81 mg PO DAILY #30 tab 05/12/20 atorvastatin 40 mg tablet 40 mg PO BEDTIME #90 tab 12/01/20 ketorolac 10 mg PO QID PRN 5 Days #20 tab 12/02/20 prednisone 40 mg PO DAILY 5 Days #10 tab 12/02/20 Allergies Allergy/AdvReac Type Severity Reaction Status Date / Time amoxicillin [From PREVPAC] Allergy Severe RASH Unverified 01/28/20 14:35 clarithromycin [From PREVPAC] Allergy Severe RASH Unverified 01/28/20 14:35 lansoprazole [From PREVPAC] Allergy Severe RASH Unverified 01/28/20 14:35 Review of Systems Review of Systems: Yes all other systems are reviewed and are negative Constitutional: Constitutional: Reports as per HPI and Reports no additional constitutional complaints Eyes: Eyes: Reports as per HPI and Reports no additional eye complaints ENT: Reports system reviewed and no additional complaints, except as documented and Reports as per HPI Cardiovascular: Cardiovascular: Reports as per HPI and Reports no additional cardiovascular complaints Respiratory: Respiratory: Reports as per HPI and Reports no additional respiratory complaints Gastrointestinal: Gastrointestinal: Reports as per HPI and Reports no additional gastrointestinal complaints Genitourinary: Genitourinary: Reports no additional female genitourinary complaints and Reports as per HPI Musculoskeletal: Musculoskeletal: Reports no additional musculoskeletal complaints, Reports as per HPI and Reports arthralgias Comments: Right shoulder pain worse on moving Neurologic: Reports system reviewed and no additional complaints, except as documented and Reports as per HPI Psychiatric: Psychiatric: Reports no additional psychiatric complaints and Reports as per HPI COUNT INCLUDES THE [facility] Past Medical History Medical History (Updated 12/02/20 @ 13:44 by RIGOBERTO Brownlee) Asthma HLD (hyperlipidemia) HTN (hypertension) Vertigo Family History Family History Mother Heart disease Father Stomach cancer Social History Social History Household Members: None Housing: Apartment Do you presently have visiting nurse or other home services: No Alcohol intake: current Alcohol intake frequency: holidays/special occasions only Advance Directives: No Advance Directives Information Provided: Yes service: No Current occupational status: retired Physical Exam Vital Signs: Vital Signs: Last Vital Signs Temp 98.0 F 12/02/20 12:28 Pulse 67 12/02/20 13:56 Resp 16 12/02/20 12:28 BP 153/73 H 12/02/20 13:56 Pulse Ox 98 12/02/20 12:28 Body Mass Index 26.6 Const: General: cooperative, healthy appearing, comfortable, no acute distress, well developed, alert, awake and Physically active Orientation/consciousness: patient oriented x3 HENMT: Head: Yes normal to inspection, Yes No palpable skull fracture present, Yes normocephalic, Yes atraumatic and No abrasion Eyes: General: appearance normal, both eyes and all related structures Neck: Neck: Yes normal visual inspection, Yes full ROM, Yes no lymphadenopathy, Yes no meningeal signs, Yes trachea midline, Yes supple and No tender Chest: Chest palpation & inspection: normal inspection of the chest and normal palpation of entire chest wall Resp: Effort & Inspection: normal respiratory effort and able to speak in complete sentences Auscultation: clear to auscultation bilaterally Cardio: Jugular venous distension: no JVD Heart sounds: S1 normal heart sound present and S2 normal heart sound present GI: Inspection: Yes normal to inspection and No abdominal wall ecchymosis Palpation (GI): Soft to palpation, not firm, nontender, no guarding and not rigid : General: No CVA tenderness and Yes no CVA tenderness Back/Spine/Pelvis: Back: no CVA tenderness, No CVA tenderness and No back tenderness Skin: General skin exam: no rashes or lesions noted and elasticity normal Neuro: General: patient oriented x3, gait normal, no meningeal signs and CN's II-XI intact bilaterally Cranial nerves: Yes CN's II-XII intact bilaterally Extrem: Shoulder/upper arm images: 1. Positive for area of tenderness on palpation. Positive for pain on range of motion. Negative for any swelling, erythema, red streaks, deformity, ecchymosis. Rest of extremity including elbow negative for any tenderness, erythema, coldness, warmth, ecchymossi or black/bluish discoloration. Vascular motor and neuro exam of right upper extremity intact. Psych: Appearance: grossly normal, well kempt and not disheveled Course Course Course Narrative: No need for repeat imaging. Reevaluation(s) Reevaluation #1: Patient hypertensive due to pain. Patient will be given Toradol 30 and be discharged with steroids and Toradol p.o.. Not suspecting any cardiac etiology, DVT, pulmonary embolus, cellulitis, or acute emboli. Repeat blood pressure improved. Patient's pain improved after Toradol injection. Time: 13:14 MDM - Extremity (Nontraumatic) MDM Narrative Medical decision making narrative: Right shoulder arthritis Discharge Plan Discharge Clinical Impression: Arthritis of shoulder Patient Disposition: Home, Self-Care Instructions: Elbow Bursitis (ED), Osteoarthritis (ED) Additional Instructions: Return to the ED immediately for swelling of upper extremity, redness, coolness, hotness, bluish discoloration of fingers, red streaks, chest pain, shortness of breath, abdominal pain, or any other concerning symptoms. You will be discharged with steroids and Toradol p.o. Prescriptions: New prednisone 20 mg tablet 40 mg PO DAILY 5 Days Qty: 10 RF: 0 ketorolac 10 mg tablet 10 mg PO QID PRN (Reason: pain) 5 Days Qty: 20 RF: 0 No Action atorvastatin 40 mg tablet 40 mg PO BEDTIME Qty: 90 RF: 0 metoprolol succinate 50 mg tablet extended release 24 hr 1 tab PO DAILY RF: 0 albuterol sulfate [ProAir HFA] 90 mcg/actuation HFA aerosol inhaler 2 puff PO QID RF: 0 aspirin 81 mg Tablet,Delayed Release (Dr/Ec) 81 mg PO DAILY Qty: 30 RF: 0 Referrals: Volodymyr Montano MD [Primary Care Provider] - 2 days (Exacerbation of shoulder arthritis.) Interventions: ED Discharge Assessment Last Done: 12/02/20 14:04 Discharge Date/Time: 12/02/20 14:06 Print Language: Trinidadian
[2020-12-02] MEDS: Ketorolac Tromethamine 15 MG/ML VIAL IM ×2 (13:30→13:31)
[2020-12-02 13:56] VITALS: BP 153/73; PULSE 67
== END 2020-12-02 14:06 | disposition home or self-care (01) ==
PROVIDERS: Emergency Provider Emergency Medicine Emergency Medical Services; PCP Internal Medicine
DX: M19.011 Primary osteoarthritis, right shoulder (principal); M25.511 Pain in right shoulder; Z86.73 Personal history of transient ischemic attack (TIA), and cerebral infarction without residual deficits
CPT/HCPCS: 96372; 99284; J1885

== ENCOUNTER → 2020-12-09 10:02 | Outpatient (BNVA) | payer MEDICARE, SELFPAY | PROVIDERS: Visit Provider Orthopaedic Surgery | DX: M75.101 Unspecified rotator cuff tear or rupture of right shoulder, not specified as traumatic (principal); R20.0 Anesthesia of skin | CPT/HCPCS: 20610; 99202; J1100 ==

== ENCOUNTER → 2020-12-20 13:40 | Outpatient (BNVA) | payer MEDICARE, SELFPAY | PROVIDERS: PCP Internal Medicine; Visit Provider Physician Assistant | DX: M54.12 Radiculopathy, cervical region (principal); M75.101 Unspecified rotator cuff tear or rupture of right shoulder, not specified as traumatic; R20.0 Anesthesia of skin | CPT/HCPCS: 99212 ==

== ENCOUNTER 2020-12-21 08:30 | Outpatient (REF) | payer MEDICARE, SELFPAY | END 2020-12-21 08:31 | disposition home or self-care (01) | LOC: HO.NEURO 08:30 | PROVIDERS: Visit Provider Internal Medicine | DX: R20.2 Paresthesia of skin (principal); M79.641 Pain in right hand | CPT/HCPCS: 95885; 95910 ==

== ENCOUNTER → 2020-12-26 08:54 | Outpatient (BNVA) | payer MEDICARE, SELFPAY | PROVIDERS: PCP Internal Medicine; Visit Provider Internal Medicine | DX: M54.12 Radiculopathy, cervical region (principal) | CPT/HCPCS: 99202 ==

== ENCOUNTER 2020-12-30 15:21 | Outpatient (REF) | payer MEDICARE, SELFPAY | END 2020-12-30 15:22 | disposition home or self-care (01) | LOC: HO.LAB 15:21 | PROVIDERS: PCP Internal Medicine; Visit Provider Internal Medicine | DX: Z20.822 Contact with and (suspected) exposure to COVID-19 (principal) | CPT/HCPCS: C9803; U0003; U0005 ==

== ENCOUNTER 2021-01-05 17:52 | Outpatient (REF) | payer MEDICARE, SELFPAY ==
--- NOTE | ~2021-01-05 | MR_ITS ---
EXAMINATION: MR CERVICAL SPINE WITHOUT CONTRAST CLINICAL INFORMATION: Right arm radiculopathy. Neck pain. COMPARISON: None TECHNIQUE: MRI of the cervical spine was obtained using routine sequences without contrast. FINDINGS: VERTEBRAL BODIES AND PARASPINAL SOFT TISSUES: Chronic fatty marrow degenerative endplate changes and severe disc space narrowing evident from the C3 through the C7 levels. No compression fractures or significant subluxations evident. There is a mild leftward cervical spinal curvature. The paraspinal soft tissues are normal. The vertebral artery flow voids are maintained. The imaged lung apices are grossly clear. CERVICOMEDULLARY JUNCTION AND VISUALIZED POSTERIOR FOSSA: The craniovertebral junction and imaged portions of the brain parenchyma appear normal. No cord signal abnormality or syrinx is seen. SPINAL LEVELS: C2-C3: No disc pathology. No central canal stenosis. Hypertrophic facet arthropathy with mild right foraminal encroachment. C3-C4: Severe loss of disc height and mild disc bulge with endplate spurring. No central canal stenosis. Right-sided hypertrophic facet degeneration and severe right foraminal narrowing. C4-C5: Mild retrosubluxation and disc-osteophyte complex with distortion of the ventral cord. No intramedullary signal change. Fhbs-az-bzyhtuau central canal stenosis and bilateral facet arthropathy with significant foraminal encroachment. C5-C6: Broad-based disc-osteophyte complex and posterior ligamentous thickening with mild central canal stenosis and facet arthropathy. Severe bilateral foraminal narrowing, worse on the right side. C6-C7: Disc-osteophyte complex and slight narrowing of the central canal with [id number] foraminal narrowing, worse on the right side. C7-T1: Minimal annular bulge. No central canal stenosis. Exuberant right-sided facet arthropathy and mild right foraminal encroachment. MR/MR cervical spine wo con IMPRESSION: Severe multilevel degenerative disc disease with hypertrophic facet arthropathy, worse on the right side. Significant multilevel foraminal narrowing. [id number] central canal stenosis at the C4-C5 level with milder central canal narrowing at the C5-C6 and C6-C7 levels.
== END 2021-01-05 17:53 | disposition home or self-care (01) ==
LOC: HO.MRI 17:52
PROVIDERS: PCP Internal Medicine; Visit Provider Internal Medicine
DX: M54.12 Radiculopathy, cervical region (principal)
CPT/HCPCS: 72141

== ENCOUNTER → 2021-01-20 10:51 | Outpatient (BNVA) | payer MEDICARE, SELFPAY | PROVIDERS: PCP Internal Medicine; Visit Provider Internal Medicine | DX: M54.12 Radiculopathy, cervical region (principal) | CPT/HCPCS: 99212 ==

== ENCOUNTER 2021-01-30 13:00 | Outpatient (RCR) | payer MEDICARE, SELFPAY | END 2021-05-29 09:43 | disposition home or self-care (01) | LOC: HO.PTWFD 13:00 | PROVIDERS: PCP Internal Medicine; Visit Provider Orthopaedic Surgery | DX: M75.101 Unspecified rotator cuff tear or rupture of right shoulder, not specified as traumatic (principal) | CPT/HCPCS: 97012; 97035; 97110; 97140; 97162; 97530 ==

== ENCOUNTER 2021-03-31 08:46 | Outpatient (REF) | payer MEDICARE, SELFPAY ==
[2021-03-31 09:11] LABS: MANUAL DIFF FLAG NO
[2021-03-31 09:32] LABS: Basophils Percent Auto 0.6 % (0-2); Eosinophils Absolute Auto 0.2 X10*3/uL (0.0-0.4); Eosinophils Percent Auto 4.4 % (0-4); Hematocrit 38.2 % (37.0-47.0); Hemoglobin 12.6 g/dl (12.0-16.0); Imm Gran Abs Auto 0.01 X10*3/uL (0.00-0.03); Imm Gran Pct Auto 0.2 % (0.0-0.4); Lymphocytes Absolute Auto 1.9 X10*3/uL (1.2-4.9); Lymphocytes Percent Auto 34.8 % (20-40); Mean Corpuscular Hemoglobin 31.7 pg (27.0-33.0); Mean Platelet Volume 10.5 fL (9.4-12.3); Monocytes Absolute Auto 0.5 X10*3/uL (0.1-1.2); Monocytes Percent Auto 9.4 % (2-11); Neutrophils Absolute Auto 2.7 x10*3/uL (2.0-8.3); Neutrophils Percent Auto 50.6 % (45-73); Platelet Count 217 X10*3/uL (160-400); Red Blood Count 3.98 X10*6/uL (4.20-5.50); Red Cell Distribution Width 11.7 % (11.0-16.0); White Blood Count 5.4 X10*3/uL (4.8-10.8)
[2021-03-31 09:59] LABS: Alanine Aminotransferase 15 U/L (0-31); Albumin Level 4.3 g/dL (3.5-5.0); Alkaline Phosphatase 68 U/L (39-117); Anion Gap 13 (12-20); Aspartate Amino Transferase 14 U/L (5-31); Bilirubin Total 0.7 mg/dL (0.0-1.0); Blood Urea Nitrogen 15 mg/dL (9-16); Calcium 9.6 mg/dL (8.4-10.2); Carbon Dioxide 29 mmol/L (22-29); Chloride 101 mmol/L (96-108); Cholesterol 157 mg/dL; Estimated Glomerular Filt Rate 57; Glucose Fasting 107 mg/dL (60-99); HDL Cholesterol 52 mg/dL; LDL Cholesterol Calculated 82 mg/dl; Potassium 4.7 mmol/L (3.3-5.1); Sodium 138 mmol/L (135-145); Triglycerides 116 mg/dL
== END 2021-03-31 08:47 | disposition home or self-care (01) ==
LOC: HO.LAB 08:46
PROVIDERS: PCP Internal Medicine; Visit Provider Internal Medicine
DX: I12.9 Hypertensive chronic kidney disease with stage 1 through stage 4 chronic kidney disease, or unspecified chronic kidney disease (principal); N18.9 Chronic kidney disease, unspecified; E78.00 Pure hypercholesterolemia, unspecified; M19.90 Unspecified osteoarthritis, unspecified site
CPT/HCPCS: 36415; 80053; 80061; 85025

== ENCOUNTER 2021-05-01 10:50 | Outpatient (REF) | payer MEDICARE, SELFPAY | END 2021-05-01 10:51 | disposition home or self-care (01) | LOC: HO.LAB 10:50 | PROVIDERS: Visit Provider Internal Medicine | DX: Z20.822 Contact with and (suspected) exposure to COVID-19 (principal) | CPT/HCPCS: C9803; U0003; U0005 ==

== ENCOUNTER → 2021-05-17 12:14 | Outpatient (BNVA) | payer MEDICARE, SELFPAY | PROVIDERS: PCP Internal Medicine; Referring Provider Internal Medicine; Visit Provider Internal Medicine | DX: I25.10 Atherosclerotic heart disease of native coronary artery without angina pectoris (principal); I10 Essential (primary) hypertension; Z86.73 Personal history of transient ischemic attack (TIA), and cerebral infarction without residual deficits; Z79.82 Long term (current) use of aspirin | CPT/HCPCS: 93005; 99212 ==

== ENCOUNTER 2021-06-06 12:40 | Outpatient (REF) | payer MEDICARE, SELFPAY ==
[2021-06-06 13:18] LABS: Binax Internal Control QC Valid; Binax Now Covid-19 Ag Negative (Negative)
== END 2021-06-06 12:41 | disposition home or self-care (01) ==
LOC: HO.LAB 12:40
PROVIDERS: Visit Provider Internal Medicine
DX: Z20.822 Contact with and (suspected) exposure to COVID-19 (principal)
CPT/HCPCS: C9803

== ENCOUNTER 2021-07-04 08:44 | Outpatient (REF) | payer MEDICARE, SELFPAY ==
[2021-07-04 09:24] LABS: COVID-19 Test Negative (Negative); IDNOW Serial# 08D9AD1C
== END 2021-07-04 08:45 | disposition home or self-care (01) ==
LOC: HO.LAB 08:44
PROVIDERS: PCP Internal Medicine; Visit Provider Internal Medicine
DX: Z20.822 Contact with and (suspected) exposure to COVID-19 (principal)
CPT/HCPCS: 87635; C9803

== ENCOUNTER 2021-08-02 10:00 | Outpatient (REF) | payer MEDICARE, SELFPAY ==
--- NOTE | ~2021-08-02 | MM_ITS ---
EXAMINATION: MM SCREENING DIGITAL BREAST TOMOSYNTHESIS, BILATERAL CLINICAL INFORMATION: Screening. Asymptomatic. The lifetime risk of breast cancer based on the Tyrer-Cuzick Model is 1.%. COMPARISON: Mammography: July 25, 2020 and studies dating back to March 10, 2014 TECHNIQUE: Digital breast tomosynthesis is performed in both the craniocaudal and mediolateral oblique views along with computer-aided detection (CAD). Synthesized 2D images are generated from the tomosynthesis. FINDINGS: There are scattered areas of fibroglandular density (ACR BI-RADS breast composition Category b). There are no significant masses, abnormal calcifications, or other abnormalities. MM/MM tomosynthesis screening BI IMPRESSION: There are no significant changes from prior study. ASSESSMENT: BI-RADS 1: Negative RECOMMENDATION: Routine annual mammography screening. This patient's information was entered into a reminder system with a target due date for their next mammogram.
== END 2021-08-02 10:01 | disposition home or self-care (01) ==
LOC: HO.MAMMO 10:00
PROVIDERS: PCP Internal Medicine; Visit Provider Internal Medicine
DX: Z12.31 Encounter for screening mammogram for malignant neoplasm of breast (principal)
CPT/HCPCS: 77063; 77067

== ENCOUNTER 2021-08-04 09:49 | Outpatient (REF) | payer MEDICARE, SELFPAY ==
[2021-08-04 10:12] LABS: MANUAL DIFF FLAG NO
[2021-08-04 10:27] LABS: Basophils Percent Auto 0.7 % (0-2); Eosinophils Absolute Auto 0.2 X10*3/uL (0.0-0.4); Eosinophils Percent Auto 3.1 % (0-4); Hematocrit 37.7 % (37.0-47.0); Hemoglobin 12.3 g/dl (12.0-16.0); Lymphocytes Absolute Auto 1.5 X10*3/uL (1.2-4.9); Lymphocytes Percent Auto 26.9 % (20-40); Mean Corpuscular HGB Conc 32.6 g/dl (31.0-35.0); Mean Corpuscular Hemoglobin 31.4 pg (27.0-33.0); Mean Corpuscular Volume 96.2 fL (80.0-98.0); Mean Platelet Volume 10.4 fL (9.4-12.3); Monocytes Absolute Auto 0.6 X10*3/uL (0.1-1.2); Monocytes Percent Auto 10.8 % (2-11); Neutrophils Absolute Auto 3.2 x10*3/uL (2.0-8.3); Neutrophils Percent Auto 58.5 % (45-73); Platelet Count 239 X10*3/uL (160-400); Red Blood Count 3.92 X10*6/uL (4.20-5.50); Red Cell Distribution Width 12.4 % (11.0-16.0); White Blood Count 5.5 X10*3/uL (4.8-10.8)
[2021-08-04 11:01] LABS: Estimated Average Glucose 120 mg/dL; Hemoglobin A1c % 5.8 %
[2021-08-04 11:22] LABS: Alanine Aminotransferase 17 U/L (0-31); Albumin Level 4.3 g/dL (3.5-5.0); Alkaline Phosphatase 60 U/L (39-117); Aspartate Amino Transferase 14 U/L (5-31); Bilirubin Direct 0.3 mg/dL (0.0-0.5); Bilirubin Total 0.8 mg/dL (0.0-1.0); Cholesterol 159 mg/dL; HDL Cholesterol 55 mg/dL; LDL Cholesterol Calculated 77 mg/dl; Total Protein 7.1 g/dL (6.5-8.0); Triglycerides 135 mg/dL
[2021-08-04 11:33] LABS: Alanine Aminotransferase 16 U/L (0-31); Albumin Level 4.3 g/dL (3.5-5.0); Alkaline Phosphatase 60 U/L (39-117); Anion Gap 10 (12-20); Aspartate Amino Transferase 14 U/L (5-31); Bilirubin Total 0.8 mg/dL (0.0-1.0); Blood Urea Nitrogen 15 mg/dL (9-16); Calcium 9.6 mg/dL (8.4-10.2); Carbon Dioxide 29 mmol/L (22-29); Chloride 102 mmol/L (96-108); Estimated Glomerular Filt Rate > 60; Glucose Random 100 mg/dL (60-115); Potassium 4.8 mmol/L (3.3-5.1); Sodium 136 mmol/L (135-145); Total Protein 7.2 g/dL (6.5-8.0)
== END 2021-08-04 09:50 | disposition home or self-care (01) ==
LOC: HO.LAB 09:49
PROVIDERS: Absent Provider Internal Medicine; PCP Internal Medicine; Visit Provider Internal Medicine
DX: I12.9 Hypertensive chronic kidney disease with stage 1 through stage 4 chronic kidney disease, or unspecified chronic kidney disease (principal); N18.9 Chronic kidney disease, unspecified; R73.03 Prediabetes; E78.00 Pure hypercholesterolemia, unspecified; E78.5 Hyperlipidemia, unspecified; I25.10 Atherosclerotic heart disease of native coronary artery without angina pectoris
CPT/HCPCS: 36415; 80053; 80061; 80076; 82248; 83036; 85025

== ENCOUNTER 2021-12-01 11:09 | Outpatient (REF) | payer MEDICARE, SELFPAY ==
--- NOTE | ~2021-12-01 | XR_ITS ---
EXAMINATION: XR CERVICAL SPINE CLINICAL INFORMATION: Neck pain COMPARISON: None TECHNIQUE: 6 views of the cervical spine, inclusive of flexion and extension views, were obtained. FINDINGS: There is normal cervical lordosis. The vertebral heights and alignment is normal. There is loss of C3-C4, C4-C5, C5-C6 and C6-C7 disc levels with mild ventral spondylosis. On oblique views there is mild bilateral narrowing of neural foramina C4-C5, C5-C6 disc levels from uncovertebral hypertrophic changes. The prevertebral soft tissues are normal. XR/XR cervical spine min 6V IMPRESSION: Degenerative disc changes and spondylosis C4-C5 through C6-C7 disc levels with ventral spondylosis. There is mild bilateral narrowing of neural foramina from uncovertebral hypertrophic changes from C4-C5 through C6-C7 disc levels.
== END 2021-12-01 11:10 | disposition home or self-care (01) ==
LOC: HO.XRAY 11:09
PROVIDERS: PCP Internal Medicine; Visit Provider Internal Medicine
DX: M54.2 Cervicalgia (principal)
CPT/HCPCS: 72052

== ENCOUNTER 2022-03-26 08:10 | Outpatient (REF) | payer MEDICARE, SELFPAY ==
[2022-03-26 08:24] LABS: MANUAL DIFF FLAG NO
[2022-03-26 08:36] LABS: Basophils Absolute Auto 0.1 X10*3/uL (0.0-0.2); Basophils Percent Auto 0.9 % (0-2); Eosinophils Absolute Auto 0.2 X10*3/uL (0.0-0.4); Hematocrit 37.5 % (37.0-47.0); Hemoglobin 12.5 g/dl (12.0-16.0); Imm Gran Abs Auto 0.01 X10*3/uL (0.00-0.03); Imm Gran Pct Auto 0.2 % (0.0-0.4); Lymphocytes Absolute Auto 1.6 X10*3/uL (1.2-4.9); Lymphocytes Percent Auto 28.9 % (20-40); Mean Corpuscular HGB Conc 33.3 g/dl (31.0-35.0); Mean Corpuscular Hemoglobin 31.3 pg (27.0-33.0); Monocytes Absolute Auto 0.6 X10*3/uL (0.1-1.2); Monocytes Percent Auto 11.3 % (2-11); Neutrophils Absolute Auto 3.2 x10*3/uL (2.0-8.3); Neutrophils Percent Auto 55.7 % (45-73); Platelet Count 243 X10*3/uL (160-400); Red Blood Count 3.99 X10*6/uL (4.20-5.50); Red Cell Distribution Width 12.3 % (11.0-16.0); White Blood Count 5.7 X10*3/uL (4.8-10.8)
[2022-03-26 09:23] LABS: Alanine Aminotransferase 17 U/L (0-31); Albumin Level 4.3 g/dL (3.5-5.0); Alkaline Phosphatase 68 U/L (39-117); Anion Gap 12 (12-20); Aspartate Amino Transferase 17 U/L (5-31); Bilirubin Total 0.8 mg/dL (0.0-1.0); Blood Urea Nitrogen 16 mg/dL (9-16); Calcium 9.7 mg/dL (8.4-10.2); Carbon Dioxide 28 mmol/L (22-29); Chloride 102 mmol/L (96-108); Cholesterol 168 mg/dL; Estimated Glomerular Filt Rate > 60; Glucose Fasting 103 mg/dL (60-99); HDL Cholesterol 58 mg/dL; LDL Cholesterol Calculated 85 mg/dl; Potassium 4.4 mmol/L (3.3-5.1); Sodium 138 mmol/L (135-145); Total Protein 7.3 g/dL (6.5-8.0); Triglycerides 126 mg/dL
== END 2022-03-26 08:11 | disposition home or self-care (01) ==
LOC: HO.LAB 08:10
PROVIDERS: PCP Internal Medicine; Visit Provider Internal Medicine
DX: I10 Essential (primary) hypertension (principal); E78.00 Pure hypercholesterolemia, unspecified; J45.909 Unspecified asthma, uncomplicated; M19.90 Unspecified osteoarthritis, unspecified site
CPT/HCPCS: 36415; 80053; 80061; 85025

== ENCOUNTER → 2022-05-22 12:19 | Outpatient (BNVA) | payer MEDICARE, SELFPAY | PROVIDERS: PCP Internal Medicine; Referring Provider Internal Medicine; Visit Provider Internal Medicine | DX: I25.10 Atherosclerotic heart disease of native coronary artery without angina pectoris (principal); I10 Essential (primary) hypertension; I63.9 Cerebral infarction, unspecified | CPT/HCPCS: 93005; 99212 ==

== ENCOUNTER → 2022-05-31 10:46 | Outpatient (REF) | payer MEDICARE, SELFPAY ==
--- NOTE | 2022-05-31 11:16 | HM_ITS ---
* Total monitoring time 14 days. * Underlying rhythm is sinus. Average ventricular rate 72/Min. Range 55 to 127/Min. * Occasional PVCs. [place] of 0.3%. Some couplets; 3 very short runs, longest 3-4 beats. * Occasional PACs. [place] of 0.3%. Mostly brief runs. One episode listed to be 13 minutes long has sinus with PACs. * No significant pauses or AV blocks. * No symptoms in diary. MTDD
== END ==
LOC: HO.SL 10:46
PROVIDERS: PCP Internal Medicine; Visit Provider Internal Medicine
DX: R00.2 Palpitations (principal); G47.33 Obstructive sleep apnea (adult) (pediatric)
CPT/HCPCS: 93246; 95806

== ENCOUNTER 2022-06-13 11:50 | Outpatient (REF) | payer MEDICARE, SELFPAY ==
--- NOTE | ~2022-06-13 | XR_ITS ---
EXAMINATION: XR RIBS, LEFT CLINICAL INFORMATION: Status post fall with left rib pain COMPARISON: Chest x-ray of January 20, 2020 TECHNIQUE: PA film of the chest and 3 views of the left ribs. FINDINGS: PA film of the chest does not demonstrate any evidence of acute parenchymal disease, pneumothorax, or pleural effusion. Heart normal size. No evidence of pulmonary edema. A powerpack is seen overlying the left medial chest. There is a nondisplaced fracture involving the lateral aspect of the left ninth rib. There appears to be either a nondisplaced fracture or bone lesion involving the anterior lateral aspect of the left 10th rib. XR/XR ribs LT min 3V w CXR1V IMPRESSION: No acute disease or pneumothorax. Fractures involving the left ninth and 10th ribs.
== END 2022-06-13 11:51 | disposition home or self-care (01) ==
LOC: HO.XRAY 11:50
PROVIDERS: PCP Internal Medicine; Visit Provider Internal Medicine
DX: R10.2 Pelvic and perineal pain (principal); R07.81 Pleurodynia; Z91.81 History of falling
CPT/HCPCS: 71101

== ENCOUNTER 2022-07-27 11:21 | Outpatient (REF) | payer MEDICARE, SELFPAY ==
[2022-07-27 12:50] LABS: Basophils Percent Auto 0.6 % (0-2); Eosinophils Absolute Auto 0.2 X10*3/uL (0.0-0.4); Eosinophils Percent Auto 4.2 % (0-4); Hemoglobin 11.7 g/dl (12.0-16.0); Imm Gran Abs Auto 0.01 X10*3/uL (0.00-0.03); Imm Gran Pct Auto 0.2 % (0.0-0.4); Lymphocytes Absolute Auto 1.4 X10*3/uL (1.2-4.9); MANUAL DIFF FLAG NO; Mean Corpuscular HGB Conc 33.4 g/dl (31.0-35.0); Mean Corpuscular Hemoglobin 31.6 pg (27.0-33.0); Mean Corpuscular Volume 94.6 fL (80.0-98.0); Mean Platelet Volume 10.4 fL (9.4-12.3); Monocytes Absolute Auto 0.7 X10*3/uL (0.1-1.2); Monocytes Percent Auto 13.1 % (2-11); Neutrophils Absolute Auto 2.7 x10*3/uL (2.0-8.3); Neutrophils Percent Auto 53.9 % (45-73); Platelet Count 247 X10*3/uL (160-400); Red Cell Distribution Width 12.5 % (11.0-16.0)
[2022-07-27 13:50] LABS: Alanine Aminotransferase 15 U/L (0-31); Alkaline Phosphatase 78 U/L (39-117); Anion Gap 13 (12-20); Aspartate Amino Transferase 16 U/L (5-31); Bilirubin Total 0.6 mg/dL (0.0-1.0); Blood Urea Nitrogen 19 mg/dL (9-16); Calcium 9.2 mg/dL (8.4-10.2); Carbon Dioxide 27 mmol/L (22-29); Chloride 100 mmol/L (96-108); Estimated Glomerular Filt Rate > 60; Glucose Fasting 92 mg/dL (60-99); Potassium 4.4 mmol/L (3.3-5.1); Sodium 136 mmol/L (135-145); Total Protein 6.8 g/dL (6.5-8.0)
== END 2022-07-27 11:22 | disposition home or self-care (01) ==
LOC: HO.HMGCLDS 11:21
PROVIDERS: PCP Internal Medicine; Visit Provider Internal Medicine
DX: I12.9 Hypertensive chronic kidney disease with stage 1 through stage 4 chronic kidney disease, or unspecified chronic kidney disease (principal); N18.9 Chronic kidney disease, unspecified; J45.909 Unspecified asthma, uncomplicated; R00.2 Palpitations
CPT/HCPCS: 36415; 80053; 83735; 85025

== ENCOUNTER 2022-09-27 08:38 | Outpatient (REF) | payer MEDICARE, SELFPAY ==
--- NOTE | ~2022-09-27 | XR_ITS ---
EXAMINATION: Bilateral knee x-ray CLINICAL INFORMATION: Pain COMPARISON: Previous x-rays from 2010 and 2012 TECHNIQUE: 3 views of each knee FINDINGS: Right: Bone alignment is normal. No fracture or dislocation. The femoral tibial joints are normal. Small osteophytes at the patellofemoral joint. Small joint effusion. Left: Bone alignment is normal. No fracture or dislocation. Normal femoral tibial joints. Small osteophytes at the patellofemoral joint. Small joint effusion. XR/XR knee RT 2V IMPRESSION: Mild arthritis at the patellofemoral joints and small joint effusions.
--- NOTE | ~2022-09-27 | XR_ITS ---
EXAMINATION: Bilateral knee x-ray CLINICAL INFORMATION: Pain COMPARISON: Previous x-rays from 2010 and 2012 TECHNIQUE: 3 views of each knee FINDINGS: Right: Bone alignment is normal. No fracture or dislocation. The femoral tibial joints are normal. Small osteophytes at the patellofemoral joint. Small joint effusion. Left: Bone alignment is normal. No fracture or dislocation. Normal femoral tibial joints. Small osteophytes at the patellofemoral joint. Small joint effusion. XR/XR knee LT 2V IMPRESSION: Mild arthritis at the patellofemoral joints and small joint effusions.
--- NOTE | ~2022-09-27 | XR_ITS ---
EXAMINATION: Bilateral knee x-ray CLINICAL INFORMATION: Pain COMPARISON: Previous x-rays from 2011 and 2012 TECHNIQUE: 3 views of each knee FINDINGS: Right: Bone alignment is normal. No fracture or dislocation. The femoral tibial joints are normal. Small osteophytes at the patellofemoral joint. Small joint effusion. Left: Bone alignment is normal. No fracture or dislocation. Normal femoral tibial joints. Small osteophytes at the patellofemoral joint. Small joint effusion. XR/XR knee standing BI IMPRESSION: Mild arthritis at the patellofemoral joints and small joint effusions.
== END 2022-09-27 08:39 | disposition home or self-care (01) ==
LOC: HO.HOSX 08:38
PROVIDERS: Visit Provider Physician Assistant
DX: M17.0 Bilateral primary osteoarthritis of knee (principal)
CPT/HCPCS: 20610; 73560; 73565; 99202; J1040

== ENCOUNTER 2022-10-01 11:33 | Outpatient (REF) | payer MEDICARE, SELFPAY ==
--- NOTE | ~2022-10-01 | MM_ITS ---
EXAMINATION: MM SCREENING DIGITAL BREAST TOMOSYNTHESIS, BILATERAL CLINICAL INFORMATION: Screening. Asymptomatic. The lifetime risk of breast cancer based on the Tyrer-Cuzick Model is under 3%. COMPARISON: Mammography: 08/02/2021, 07/25/2020, 07/20/2019 TECHNIQUE: Digital breast tomosynthesis is performed in both the craniocaudal and mediolateral oblique views along with computer-aided detection (CAD). Synthesized 2D images are generated from the tomosynthesis. FINDINGS: There are scattered areas of fibroglandular density (ACR BI-RADS breast composition Category b). There are no significant masses, abnormal calcifications, or other abnormalities. Parenchymal pattern is similar to prior studies. There is no developing density or architectural abnormality. The axilla and skin contours are unremarkable. No significant changes. MM/MM tomosynthesis screening BI IMPRESSION: No mammographic evidence of malignancy. ASSESSMENT: BI-RADS 1: Negative RECOMMENDATION: Routine annual mammography screening. This patient's information was entered into a reminder system with a target due date for their next mammogram.
== END 2022-10-01 11:34 | disposition home or self-care (01) ==
LOC: HO.MAMMO 11:33
PROVIDERS: PCP Internal Medicine; Visit Provider Internal Medicine
DX: Z12.31 Encounter for screening mammogram for malignant neoplasm of breast (principal)
CPT/HCPCS: 77063; 77067

== ENCOUNTER → 2022-11-02 11:37 | Outpatient (BNVA) | payer MEDICARE, SELFPAY | PROVIDERS: PCP Internal Medicine; Visit Provider Physician Assistant | DX: M17.11 Unilateral primary osteoarthritis, right knee (principal) | CPT/HCPCS: 99212 ==

== ENCOUNTER 2022-11-07 13:34 | Outpatient (REF) | payer MEDICARE, SELFPAY ==
[2022-11-07 15:52] LABS: Appearance Urine Clear; Color Urine Yellow; Glucose Urine UA Negative (Negative); Leukocyte Esterase Urine Trace (Negative); Nitrite Urine Negative (Negative); PH 5.5 (5.0-9.0); UMIC TRIGGER UACC YES; Urine Blood Negative (Negative); Urine Ketones Trace mg/dL (Negative); Urine Protein Trace mg/dL (Neg-Trace)
[2022-11-07 17:33] LABS: Bacteria Urine None Seen (None Seen); Hyaline Casts Urine 0-2 /LPF (0-2); Squamous Epithelial Cell Urine 0-2 /HPF (0-2); WBC Urine 0-5 /HPF (0-5)
== END 2022-11-07 13:35 | disposition home or self-care (01) ==
LOC: HO.LAB 13:34
PROVIDERS: PCP Internal Medicine; Visit Provider Internal Medicine
DX: R30.0 Dysuria (principal)
CPT/HCPCS: 81001; 87086

== ENCOUNTER 2022-11-23 12:54 | Outpatient (AMB) | payer MEDICARE, SELFPAY ==
--- NOTE | 2022-11-23 13:00 | A.OFFVIS_ITS ---
Intake Vital Signs 11/23/22 13:06 Height 5 ft 9 in Weight 184 lb 6 oz BMI 27.2 BP 165/71 H Blood Pressure Location Rt brachial Position Sitting Pulse 66 Pulse Source Pulse Oximeter Pulse Oximetry (%) 99 Oxygen Delivery Method Room Air Intake Visit Reasons: REF BY ORTHO EVALUATE FOR NERVE BLOCKS(KNEES) Residential Manager Required: No Accompanied by: Self / Same As Patient Allergies amoxicillin [From PREVPAC] Allergy (Severe, Verified 11/23/22 13:06) RASH clarithromycin [From PREVPAC] Allergy (Severe, Verified 11/23/22 13:06) RASH lansoprazole [From PREVPAC] Allergy (Severe, Verified 11/23/22 13:06) RASH nirmatrelvir [From Paxlovid] Allergy (Unknown, Verified 11/23/22 13:06) Hives ritonavir [From Paxlovid] Allergy (Unknown, Verified 11/23/22 13:06) Hives tramadol Allergy (Unknown, Verified 11/23/22 13:06) Hives HPI REF BY ORTHO EVALUATE FOR NERVE BLOCKS(KNEES) HPI Details Patient is a pleasant 82 years old female with chronic bilateral knee pain, presents today for initial evaluation of bilateral anterior knee pain. Denies any recent trauma, injury or falls. Her most recent cortisone injections were on 09/27/22 with temporary partial symptom relief. Her right knee is worse than left knee. Pain is worst with walking or climbing stairs. She also reports numbness over anterior knee with intermittent low back and hip pain. She notes that right knee pain is her most concerning pain generator at this time. Patient reports pain affects her daily activities, functions, mood, sleep, and social interactions. She continues to stay active, exercises daily and goes to [facility] 2 days a week by walking across the pool. Denies previous knee surgery or gel injections. She is interested in trying Synvisc injections prior interventional treatments, including Sprint PNS trial or genicular RFA. Denies any fever, weakness, numbness, tingling, bladder or bowel incontinence or saddle anesthesia. Location Bilateral knee pain Duration Chronic bilateral knee pain > 10 years Characteristics of symptom or complaint Aching, hot/ burning, stabbing, sharp, tingling, shooting, numb, cramping Aggravating or associated factors Bending, walking up and down stairs, getting up from sitting Relieving factors Tylenol Treatment Cortisone injections since 2013, last on 09/27/22-temporary results [facility] Medical History Asthma HLD (hyperlipidemia) HTN (hypertension) Vertigo Surgical History No pertinent past surgical history Family History Mother Heart disease Father Stomach cancer Social History Household Members: None Housing: Apartment Do you presently have visiting nurse or other home services: No Alcohol intake: current Alcohol intake frequency: holidays/special occasions only service: No Current occupational status: retired Current occupation: rt handed Review of Systems Const All systems reviewed & are unremarkable except as noted in HPI and below Physical Exam Vital Signs: Last Vital Signs Pulse 66 11/23/22 13:06 BP 165/71 H 11/23/22 13:06 Pulse Ox 99 11/23/22 13:06 Oxygen Delivery Method Room Air 11/23/22 13:06 BMI result Body Mass Index 27.2 General: Appears afebrile. Alert and oriented. Mood and affect appropriate. Follows and participates in conversation appropriately. Respiratory effort is unlabored. No cough. Able to transition from sit to stand unassisted. Ambulates with bilaterally normal heel strike and toe off. Back/Spine/Pelvis Other: Lumbar extension reproduce mild to moderate pain. Mild lateral hip pain with I/E hip rotations bilaterally. Cervical Spine: cervical ROM normal, No Cervical spine tenderness and No step off deformity Thoracic/Lumbar Spine: thoracic and lumbar spine normal to inspection, Lasegue's sign negative, straight leg raise negative bilaterally, pain with thoraco-lumbar ROM, No thoracic spinal tenderness and lumbar spinal tenderness at L4 and at L5 Pelvis: no buttock tenderness Sacroiliac joints: bilaterally nontender Extrem General: Yes capillary refill normal, Yes no clubbing, cyanosis or edema and Yes no calf tenderness Right lower extremity: knee (Limited ROM due to pain. Crepitus with flexion.) Details: normal to inspection and tenderness Location: of the patella and of the lateral joint line; no swelling, no ecchymosis and no unusual warmth Left lower extremity: knee Details: normal to inspection, tenderness Location: of the patella and of the lateral joint line, normal ROM and crepitus Location: at the knee; no swelling, no ecchymosis and no unusual warmth Results Reviewed Results Reviewed: Bilateral knee x-ray 09/27/22 COMPARISON: Previous x-rays from 2010 and 2011 FINDINGS: Right: Bone alignment is normal. No fracture or dislocation. The femoral tibial joints are normal. Small osteophytes at the patellofemoral joint. Small joint effusion. Left: Bone alignment is normal. No fracture or dislocation. Normal femoral tibial joints. Small osteophytes at the patellofemoral joint. Small joint effusion. IMPRESSION: Mild arthritis at the patellofemoral joints and small joint effusions. Assessment & Plan Assessment & Plan (1) Osteoarthritis of left knee: Code(s): M17.12 - Unilateral primary osteoarthritis, left knee (2) Osteoarthritis of right knee: Code(s): M17.11 - Unilateral primary osteoarthritis, right knee (3) Bilateral knee pain: Code(s): M25.561 - Pain in right knee; M25.562 - Pain in left knee (4) Bilateral hip pain: Code(s): M25.551 - Pain in right hip; M25.552 - Pain in left hip (5) Lumbar spondylosis: Code(s): M47.816 - Spondylosis without myelopathy or radiculopathy, lumbar region Plan 1. Schedule Synvisc bilateral knee injections with local and fluoroscopy. The risks, consequences, alternatives, and benefits of various treatment options were discussed with the patient in great detail, including conservative management, injections and procedures. 2. Tentatively will plan for Bilateral Diagnostic Saphenous nerve blocks at the adductor canal with local and US guidance for potential Sprint trial. Will start with right knee first per patient's request. Informational pamphlets provided to patient today. 3. Continue Tylenol Arthritis, encouraged to alternate ice and heat therapy, rest and elevation. 4. Lumbar spine and hip with pelvic views imaging to assess degree of degenerative changes, any subluxation, listhesis or pars defects. All questions were answered and the patient is in agreement with the treatment plan. Follow up after injections and sooner if needed. Orders: Orders XR lumbar spine 6V w bending 11/23/22 M47.816 - Spondylosis without myelopathy or radiculopathy, lumbar region XR hip BI w PEL1V 11/23/22 M25.551 - Pain in right hip, M25.552 - Pain in left hip Medications: New diclofenac sodium 1% (Arthritis Pain (diclofenac)) 4 grams topical QID PRN 100 grams 1RF pain M17.11 - Unilateral primary osteoarthritis, right knee, M17.12 - Unilateral primary osteoarthritis, left knee, M25.561 - Pain in right knee, M25.562 - Pain in left knee lidocaine 5% 2 patches topical DAILY 30 days 30 ea 1RF pain M17.11 - Unilateral primary osteoarthritis, right knee, M17.12 - Unilateral primary osteoarthritis, left knee, M25.561 - Pain in right knee, M25.562 - Pain in left knee acetaminophen ER (Arthritis Pain Relief (acetaminophen) ER) 1,300 mg (2 x 650 mg) PO Q12H 90 days PRN 360 tabs 0RF pain M17.11 - Unilateral primary osteoarthritis, right knee, M17.12 - Unilateral primary osteoarthritis, left knee, M25.561 - Pain in right knee, M25.562 - Pain in left knee Coding Level of Care Code New Pt Level 4 (06543) Diagnoses Osteoarthritis of left knee M17.12 Osteoarthritis of right knee M17.11 Bilateral knee pain M25.561; M25.562 Bilateral hip pain M25.551; M25.552 Lumbar spondylosis M47.816
[2022-11-23 13:06] VITALS: BP 165/71; PULSE 66; O2SAT 99; BMI 27.2
== END 2022-11-23 13:50 | disposition home or self-care (01) ==
PROVIDERS: PCP Internal Medicine; Visit Provider Nurse Practitioner Family
DX: M17.0 Bilateral primary osteoarthritis of knee (principal); M25.561 Pain in right knee; M25.562 Pain in left knee; M25.551 Pain in right hip; M25.552 Pain in left hip; M47.816 Spondylosis without myelopathy or radiculopathy, lumbar region
CPT/HCPCS: 99204; 99214

== ENCOUNTER → 2022-11-23 12:54 | Outpatient (BNVA) | payer MEDICARE, SELFPAY | PROVIDERS: PCP Internal Medicine; Visit Provider Nurse Practitioner Family | DX: M17.12 Unilateral primary osteoarthritis, left knee (principal); M17.11 Unilateral primary osteoarthritis, right knee; M25.561 Pain in right knee; M25.562 Pain in left knee; M25.551 Pain in right hip; M25.552 Pain in left hip; M47.816 Spondylosis without myelopathy or radiculopathy, lumbar region | CPT/HCPCS: 99202 ==

== ENCOUNTER 2022-11-28 13:23 | Outpatient (AMB) | payer MEDICARE, SELFPAY ==
--- NOTE | 2022-11-28 13:25 | A.OFFVIS_ITS ---
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 Accompanied by: Self / Same As Patient Allergies amoxicillin [From PREVPAC] Allergy (Severe, Verified 11/28/22 13:29) RASH clarithromycin [From PREVPAC] Allergy (Severe, Verified 11/28/22 13:29) RASH lansoprazole [From PREVPAC] Allergy (Severe, Verified 11/28/22 13:29) RASH nirmatrelvir [From Paxlovid] Allergy (Unknown, Verified 11/28/22 13:29) Hives ritonavir [From Paxlovid] Allergy (Unknown, Verified 11/28/22 13:29) Hives tramadol Allergy (Unknown, Verified 11/28/22 13:29) Hives Medication List - Last Reconciled 11/28/22 by Ivan Interiano MD acetaminophen ER (Arthritis Pain Relief (acetaminophen) ER) 1,300 mg (2 x 650 mg) PO Q12H PRN 90 days albuterol sulfate 90 mcg/actuation (ProAir HFA) 2 puffs PO QID amlodipine 2.5 mg PO DAILY aspirin 81 mg PO DAILY atorvastatin 40 mg PO DAILY diclofenac sodium 1% (Arthritis Pain (diclofenac)) 4 grams topical QID PRN lidocaine 5% 2 patches topical DAILY 30 days meclizine 12.5 mg PO TID PRN metoprolol succinate ER 50 mg PO DAILY HPI HPI Comments History of Present Illness Details Keyla returns for follow-up. To recall, in 2019 she was admitted for stroke. In that context had slight elevation in troponins. Recovered from the stroke itself. Overall, doing well. No specific complaints. [facility] [place] Medical History Asthma HLD (hyperlipidemia) HTN (hypertension) Vertigo Surgical History No pertinent past surgical history Family History Mother Heart disease Father Stomach cancer Social History Household Members: None Housing: Apartment Do you presently have visiting nurse or other home services: No Alcohol intake: current Alcohol intake frequency: holidays/special occasions only service: No Current occupational status: retired Current occupation: rt handed Review of Systems Const Denies weakness ENT Denies dizziness Card Denies chest pain, Denies chest pain with activity, Denies syncope, Denies rapid heart rate, Denies pedal edema, Denies edema, Denies leg edema, Denies lightheadedness, Denies palpitations, Denies dyspnea, Denies dyspnea on exertion and Denies orthopnea Resp Denies cough, Denies dyspnea and Denies dyspnea on exertion GI Denies hematochezia and Denies change in stool character Musc Denies abnormal gait, Denies muscle cramps, Denies muscle weakness, Denies numbness, Denies radiating pain into limb and Denies tingling Neuro Denies abnormal gait, Denies dizziness, Denies syncope, Denies numbness, Denies tingling and Denies weakness Endo Denies palpitations Physical Exam Vital Signs: Last Vital Signs Pulse 60 11/28/22 13:26 BP 140/80 H 11/28/22 13:26 BMI result Body Mass Index 28.1 Const General: comfortable and no acute distress Orientation/consciousness: patient oriented x3 HEENT Other: Unremarkable Head: Yes normal to inspection Neck Neck: Yes normal visual inspection Chest Chest palpation & inspection: normal inspection of the chest Resp Auscultation: clear to auscultation bilaterally Cardio Palpation: normal PMI Heart sounds: S1 normal heart sound present, S2 normal heart sound present, no gallops, no murmurs and no rubs GI Palpation (GI): Soft to palpation Back/Spine/Pelvis Other: unremarkable Skin General skin exam: no rashes or lesions noted Neuro General: patient oriented x3 Extrem General: Yes normal to inspection Psych Mental Status: mental status grossly normal Assessment & Plan Assessment & Plan (1) Atherosclerotic cardiovascular disease: Code(s): I25.10 - Atherosclerotic heart disease of [place] coronary artery without angina pectoris (2) Essential hypertension: Code(s): I10 - Essential (primary) hypertension (3) Ischemic stroke: Code(s): I63.9 - Cerebral infarction, unspecified Plan Generally stable. Continue aspirin, amlodipine, beta-blockers and statins. LDL seems reasonable. Blood pressure on the higher side today but she states that other blood pressures at home are much lower. 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 At least lose some weight if able. Discussed. Cardiac testing- Myocardial perfusion imaging- 05/2020- no ischemia. Fixed distal anterior/apical defect thought to be from soft tissue artifact. Echo-04/2020-LVEF 60-65%; mild aortic valve calcification. Coding Level of Care Code Est Pt Level 3 (62904) Diagnoses Atherosclerotic cardiovascular disease I25.10 Essential hypertension I10 Ischemic stroke I63.9
[2022-11-28 13:26] VITALS: BP 140/80; PULSE 60; BMI 28.1
== END 2022-11-28 13:45 | disposition home or self-care (01) ==
PROVIDERS: Visit Provider Internal Medicine
DX: I25.10 Atherosclerotic heart disease of native coronary artery without angina pectoris (principal); I10 Essential (primary) hypertension; I63.9 Cerebral infarction, unspecified
CPT/HCPCS: 99213

== ENCOUNTER → 2022-11-28 13:23 | Outpatient (BNVA) | payer MEDICARE, SELFPAY | PROVIDERS: Visit Provider Internal Medicine | DX: I25.10 Atherosclerotic heart disease of native coronary artery without angina pectoris (principal); I10 Essential (primary) hypertension; E78.5 Hyperlipidemia, unspecified; Z86.73 Personal history of transient ischemic attack (TIA), and cerebral infarction without residual deficits | CPT/HCPCS: 99212 ==

== ENCOUNTER 2022-12-07 11:17 | Outpatient (REF) | payer MEDICARE, SELFPAY ==
--- NOTE | ~2022-12-07 | XR_ITS ---
EXAMINATION: XR BILATERAL HIPS WITH AP PELVIS CLINICAL INFORMATION: Pain. COMPARISON: Right hip radiographs dated 05/21/2008. TECHNIQUE: AP view of the pelvis and AP and frog-leg lateral views of each hip were obtained. FINDINGS: No fracture. Hip joint spaces are maintained. Alignment is anatomic. Sacroiliac joints and pubic symphysis are normal. No abnormal soft tissue calcifications. There are small enthesophytes arising from the greater tuberosities of the bilateral proximal femora. XR/XR hip BI w PEL1V IMPRESSION: Normal pelvis and bilateral hips.
--- NOTE | ~2022-12-07 | XR_ITS ---
EXAMINATION: XR LUMBOSACRAL SPINE WITH OBLIQUES CLINICAL INFORMATION: Spondylosis without myelopathy or radiculopathy. COMPARISON: None available. TECHNIQUE: AP, both oblique, and lateral (neutral, flexion and extension) views of the lumbar spine. Lateral view of the lumbosacral junction. FINDINGS: There is bony demineralization. There is a very mild thoracolumbar dextroscoliosis. At L2-L3, there is marked disc space narrowing, with a 3 mm retrolisthesis. There is marked disc space narrowing at L4-L5 and L5-S1. No acute fracture or spondylolisthesis is seen. There is multi-level mild lumbar spondylosis. No instability is seen with flexion or extension. The posterior elements are intact. There is facet arthropathy, most pronounced at L5-S1. There are aortoiliac atherosclerotic calcifications. XR/XR lumbar spine 6V w bending IMPRESSION: 1. There is multi-level lumbar degenerative disc disease, spondylosis and facet arthropathy. Degenerative disc disease is most pronounced at L2-L3, L4-L5 and L5-S1, where it is severe. 2. No instability is seen with flexion or extension.
== END 2022-12-07 11:18 | disposition home or self-care (01) ==
LOC: HO.XRAY 11:17
PROVIDERS: Visit Provider Nurse Practitioner Family
DX: M25.551 Pain in right hip (principal); M25.552 Pain in left hip; M47.816 Spondylosis without myelopathy or radiculopathy, lumbar region
CPT/HCPCS: 72114; 73521

== ENCOUNTER 2023-01-04 14:35 | Outpatient (AMB) | payer MEDICARE, SELFPAY ==
--- NOTE | 2023-01-04 14:44 | MHC.OFFVIS ---
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 Accompanied by: Self / Same As Patient Allergies amoxicillin [From PREVPAC] Allergy (Severe, Verified 01/04/23 14:48) RASH clarithromycin [From PREVPAC] Allergy (Severe, Verified 01/04/23 14:48) RASH lansoprazole [From PREVPAC] Allergy (Severe, Verified 01/04/23 14:48) RASH nirmatrelvir [From Paxlovid] Allergy (Unknown, Verified 01/04/23 14:48) Hives ritonavir [From Paxlovid] Allergy (Unknown, Verified 01/04/23 14:48) Hives tramadol Allergy (Unknown, Verified 01/04/23 14:48) Hives HPI HPI Comments History of Present Illness Details Patient presents today for follow up to discuss recent lumbar spine and hip xray results. She continues to endorse axial low back pain with movements, changing positions, walking or prolonged standing. Pain negatively affects her general daily activities and sleep. She is interested in undergoing diagnostic lumbar medial branch blocks for potential longer term treatments for her axial low back pain. Patient continues to reports bilateral knee pain as well and is scheduled to undergo Synvisc injections with Dr. Barillas next month under fluoroscopy guidance. Denies any recent cough, cold, infection, fever or other significant changes in medical history since last office visit. Patient denies any bladder or bowel incontinence or saddle anesthesia. Ambulates with mildly antalgic gait without assistive devices. PRIOR: Patient is a pleasant 82 years old female with chronic bilateral knee pain, presents today for initial evaluation of bilateral anterior knee pain. Denies any recent trauma, injury or falls. Her most recent cortisone injections were on 09/27/22 with temporary partial symptom relief. Her right knee is worse than left knee. Pain is worst with walking or climbing stairs. She also reports numbness over anterior knee with intermittent low back and hip pain. She notes that right knee pain is her most concerning pain generator at this time. Patient reports pain affects her daily activities, functions, mood, sleep, and social interactions. She continues to stay active, exercises daily and goes to [facility] 2 days a week by walking across the pool. Denies previous knee surgery or gel injections. She is interested in trying Synvisc injections prior interventional treatments, including Sprint PNS trial or genicular RFA. Denies any fever, weakness, numbness, tingling, bladder or bowel incontinence or saddle anesthesia. Location Bilateral knee pain Duration Chronic bilateral knee pain > 10 years Characteristics of symptom or complaint Aching, hot/ burning, stabbing, sharp, tingling, shooting, numb, cramping Aggravating or associated factors Bending, walking up and down stairs, getting up from sitting Relieving factors Tylenol Treatment Cortisone injections since 2013, last on 09/27/22-temporary results [facility] Medical History Asthma HLD (hyperlipidemia) HTN (hypertension) Vertigo Surgical History No pertinent past surgical history Family History Mother Heart disease Father Stomach cancer Social History Household Members: None Housing: Apartment Do you presently have visiting nurse or other home services: No Alcohol intake: current Alcohol intake frequency: holidays/special occasions only service: No Current occupational status: retired Current occupation: rt handed Review of Systems Const All systems reviewed & are unremarkable except as noted in HPI and below Physical Exam Vital Signs: Last Vital Signs Pulse 64 01/04/23 14:47 BP 141/64 H 01/04/23 14:47 Pulse Ox 97 01/04/23 14:47 Oxygen Delivery Method Room Air 01/04/23 14:47 BMI result Body Mass Index 28.1 General: Appears afebrile. Alert and oriented. Mood and affect appropriate. Follows and participates in conversation appropriately. Respiratory effort is unlabored. No cough. Able to transition from sit to stand unassisted. Back/Spine/Pelvis Other: Lumbar extension reproduce mild to moderate pain. Mild lateral hip pain with I/E hip rotations bilaterally. Cervical Spine: cervical ROM normal, No Cervical spine tenderness and No step off deformity Thoracic/Lumbar Spine: thoracic and lumbar spine normal to inspection, Lasegue's sign negative, straight leg raise negative bilaterally, pain with thoraco-lumbar ROM, No thoracic spinal tenderness and lumbar spinal tenderness at L4 and at L5 Pelvis: no buttock tenderness Sacroiliac joints: bilaterally nontender Extrem Other: Bilateral knee localized tenderness in the projection of lateral lines. No swelling, no effusion, no erythema. General: Yes capillary refill normal, Yes no clubbing, cyanosis or edema and Yes no calf tenderness Results Reviewed Results Reviewed: XR LUMBOSACRAL SPINE WITH OBLIQUES 12/07/22 FINDINGS: There is bony demineralization. There is a very mild thoracolumbar dextroscoliosis. At L2-L3, there is marked disc space narrowing, with a 3 mm retrolisthesis. There is marked disc space narrowing at L4-L5 and L5-S1. No acute fracture or spondylolisthesis is seen. There is multi-level mild lumbar spondylosis. No instability is seen with flexion or extension. The posterior elements are intact. There is facet arthropathy, most pronounced at L5-S1. There are aortoiliac atherosclerotic calcifications. IMPRESSION: 1. There is multi-level lumbar degenerative disc disease, spondylosis and facet arthropathy. Degenerative disc disease is most pronounced at L2-L3, L4-L5 and L5-S1, where it is severe. 2. No instability is seen with flexion or extension. XR BILATERAL HIPS WITH AP PELVIS 12/07/22 COMPARISON: Right hip radiographs dated 05/21/2008. FINDINGS: No fracture. Hip joint spaces are maintained. Alignment is anatomic. Sacroiliac joints and pubic symphysis are normal. No abnormal soft tissue calcifications. There are small enthesophytes arising from the greater tuberosities of the bilateral proximal femora. IMPRESSION: Normal pelvis and bilateral hips. Assessment & Plan Assessment & Plan (1) Osteoarthritis of left knee: Code(s): M17.12 - Unilateral primary osteoarthritis, left knee (2) Osteoarthritis of right knee: Code(s): M17.11 - Unilateral primary osteoarthritis, right knee (3) Bilateral knee pain: Code(s): M25.561 - Pain in right knee; M25.562 - Pain in left knee (4) Bilateral hip pain: Code(s): M25.551 - Pain in right hip; M25.552 - Pain in left hip (5) Lumbar spondylosis: Code(s): M47.816 - Spondylosis without myelopathy or radiculopathy, lumbar region Plan 1. Schedule Bilateral Diagnostic L3-L4-L5 MBB with local and fluoroscopy for chronic axial low back pain. Recent lumbar spine and hip with pelvic view imaging was reviewed with patient today. The risks, consequences, alternatives, and benefits of various treatment options were discussed with the patient in great detail, including conservative management, injections and procedures. 2. Proceed with Synvisc bilateral knee injections next month as scheduled. 3. Continue Tylenol Arthritis, encouraged to alternate ice and heat therapy, rest and elevation. All questions were answered and the patient is in agreement with the treatment plan. Follow up after injections and sooner as needed. Coding Level of Care Code Est Pt Level 4 (85058) Diagnoses Osteoarthritis of left knee M17.12 Osteoarthritis of right knee M17.11 Bilateral knee pain M25.561; M25.562 Bilateral hip pain M25.551; M25.552 Lumbar spondylosis M47.816
[2023-01-04 14:47] VITALS: BP 141/64; PULSE 64; O2SAT 97; BMI 28.1
== END 2023-01-04 15:27 | disposition home or self-care (01) ==
PROVIDERS: PCP Internal Medicine; Visit Provider Nurse Practitioner Family
DX: M17.0 Bilateral primary osteoarthritis of knee (principal); M25.551 Pain in right hip; M25.552 Pain in left hip; M47.816 Spondylosis without myelopathy or radiculopathy, lumbar region
CPT/HCPCS: 99214

== ENCOUNTER → 2023-01-04 14:35 | Outpatient (BNVA) | payer MEDICARE, SELFPAY | PROVIDERS: PCP Internal Medicine; Visit Provider Nurse Practitioner Family | DX: M17.0 Bilateral primary osteoarthritis of knee (principal); M25.562 Pain in left knee; M25.561 Pain in right knee; M25.552 Pain in left hip; M25.551 Pain in right hip; M47.816 Spondylosis without myelopathy or radiculopathy, lumbar region | CPT/HCPCS: 99212 ==

== ENCOUNTER 2023-02-12 14:07 | Outpatient (AMB) | payer MEDICARE, SELFPAY ==
--- NOTE | 2023-02-12 14:07 | A.OFFVIS_ITS ---
Intake Vital Signs 02/12/23 14:08 Height 5 ft 9 in Weight 189 lb BMI 27.9 Intake Visit Reasons: discuss MBB/ Confirmed Solution Spec Required: No Allergies amoxicillin [From PREVPAC] Allergy (Severe, Verified 02/12/23 14:08) RASH clarithromycin [From PREVPAC] Allergy (Severe, Verified 02/12/23 14:08) RASH lansoprazole [From PREVPAC] Allergy (Severe, Verified 02/12/23 14:08) RASH nirmatrelvir [From Paxlovid] Allergy (Unknown, Verified 02/12/23 14:08) Hives ritonavir [From Paxlovid] Allergy (Unknown, Verified 02/12/23 14:08) Hives tramadol Allergy (Unknown, Verified 02/12/23 14:08) Hives HPI HPI Comments History of Present Illness Details Patient presents today via telehealth encounter to discuss procedures for knees and axial low back pain. Patient is scheduled to undergo Synvisc knee injections on 02/27/23 at 0730 and this was confirmed with patient today. However, upon reviewing plan for axial low back pain, patient reports that we did not discuss this before. We again reviewed our last office visit for reviewing lumbar spine and hip xrays and tentatively planning for diagnostic lumbar medial branch blocks for potential stimulative or ablative procedures for a longer term pain relief. These injections were approved by her insurance. We discussed goal of diagnostic injections again today. Patient lives alone and I do not believe Sprint PNS trial will be practical for her due to forgetfulness and current cognitive status. We will consider therapeutic injections vs RFA at our next follow up visit. Denies any recent cough, cold, infection, fever or other significant changes in medical history since last office visit. PRIOR: Patient presents today for follow up to discuss recent lumbar spine and hip xray results. She continues to endorse axial low back pain with movements, changing positions, walking or prolonged standing. Pain negatively affects her general daily activities and sleep. She is interested in undergoing diagnostic lumbar medial branch blocks for potential longer term treatments for her axial low back pain. Patient continues to reports bilateral knee pain as well and is scheduled to undergo Synvisc injections with Dr. Barillas next month under fluoroscopy guidance. Denies any recent cough, cold, infection, fever or other significant changes in medical history since last office visit. Patient denies any bladder or bowel incontinence or saddle anesthesia. Ambulates with mildly antalgic gait without assistive devices. PRIOR: Patient is a pleasant 82 years old female with chronic bilateral knee pain, presents today for initial evaluation of bilateral anterior knee pain. Denies any recent trauma, injury or falls. Her most recent cortisone injections were on 09/27/22 with temporary partial symptom relief. Her right knee is worse than left knee. Pain is worst with walking or climbing stairs. She also reports numbness over anterior knee with intermittent low back and hip pain. She notes that right knee pain is her most concerning pain generator at this time. Patient reports pain affects her daily activities, functions, mood, sleep, and social interactions. She continues to stay active, exercises daily and goes to [facility] 2 days a week by walking across the pool. Denies previous knee surgery or gel injections. She is interested in trying Synvisc injections prior interventional treatments, including Sprint PNS trial or genicular RFA. Denies any fever, weakness, numbness, tingling, bladder or bowel incontinence or saddle anesthesia. Location Bilateral knee pain Duration Chronic bilateral knee pain > 10 years Characteristics of symptom or complaint Aching, hot/ burning, stabbing, sharp, tingling, shooting, numb, cramping Aggravating or associated factors Bending, walking up and down stairs, getting up from sitting Relieving factors Tylenol Treatment Cortisone injections since 2013, last on 09/27/22-temporary results [facility] Medical History Asthma HLD (hyperlipidemia) HTN (hypertension) Vertigo Surgical History No pertinent past surgical history Family History Mother Heart disease Father Stomach cancer Social History Household Members: None Housing: Apartment Do you presently have visiting nurse or other home services: No Alcohol intake: current Alcohol intake frequency: holidays/special occasions only service: No Current occupational status: retired Current occupation: rt handed Review of Systems Const All systems reviewed & are unremarkable except as noted in HPI and below ENT Reports Normal hearing present Neuro Reports Normal hearing present and Denies confusion Psych Denies confusion Physical Exam Vital Signs: BMI result Body Mass Index 27.9 Const General: cooperative, alert and awake; No confusion Orientation/consciousness: patient oriented x3 and No confusion Resp Effort & Inspection: able to speak in complete sentences, no audible wheezes and no cough Neuro General: patient oriented x3 and No confusion Cranial nerves: Yes Normal hearing present Cognition (Neuro): normal cognition Psych Mental Status: mental status grossly normal Speech and movement: Clear speech present Affect: normal affect Attitude: cooperative Thought process: Normal thought process present Thought content: Normal thought content present and No Depressive thoughts present Insight: Good insight present (Psych) Judgement: Good judgement present (Psych) Results Reviewed Results Reviewed: XR LUMBOSACRAL SPINE WITH OBLIQUES 12/07/22 FINDINGS: There is bony demineralization. There is a very mild thoracolumbar dextroscoliosis. At L2-L3, there is marked disc space narrowing, with a 3 mm retrolisthesis. There is marked disc space narrowing at L4-L5 and L5-S1. No acute fracture or spondylolisthesis is seen. There is multi-level mild lumbar spondylosis. No instability is seen with flexion or extension. The posterior elements are intact. There is facet arthropathy, most pronounced at L5-S1. There are aortoiliac atherosclerotic calcifications. IMPRESSION: 1. There is multi-level lumbar degenerative disc disease, spondylosis and facet arthropathy. Degenerative disc disease is most pronounced at L2-L3, L4-L5 and L5-S1, where it is severe. 2. No instability is seen with flexion or extension. XR BILATERAL HIPS WITH AP PELVIS 12/07/22 COMPARISON: Right hip radiographs dated 05/21/2008. FINDINGS: No fracture. Hip joint spaces are maintained. Alignment is anatomic. Sacroiliac joints and pubic symphysis are normal. No abnormal soft tissue calcifications. There are small enthesophytes arising from the greater tuberosities of the bilateral proximal femora. IMPRESSION: Normal pelvis and bilateral hips. Bilateral knee x-ray 09/27/22 COMPARISON: Previous x-rays from 2010 and 2011 FINDINGS: Right: Bone alignment is normal. No fracture or dislocation. The femoral tibial joints are normal. Small osteophytes at the patellofemoral joint. Small joint effusion. Left: Bone alignment is normal. No fracture or dislocation. Normal femoral tibial joints. Small osteophytes at the patellofemoral joint. Small joint effusion. IMPRESSION: Mild arthritis at the patellofemoral joints and small joint effusions. Assessment & Plan Assessment & Plan (1) Osteoarthritis of left knee: Code(s): M17.12 - Unilateral primary osteoarthritis, left knee (2) Osteoarthritis of right knee: Code(s): M17.11 - Unilateral primary osteoarthritis, right knee (3) Bilateral knee pain: Code(s): M25.561 - Pain in right knee; M25.562 - Pain in left knee (4) Lumbar spondylosis: Code(s): M47.816 - Spondylosis without myelopathy or radiculopathy, lumbar region Plan 1. Hold off on Bilateral Diagnostic L3-L4-L5 MBB with local and fluoroscopy for chronic axial low back pain until knee injections are complete and patient has follow up in clinic. The role of diagnostic lumbar MBBs were discussed in greater detail today again with patient. Patient lives alone and I do not believe Sprint PNS trial will be practical for her due to forgetfulness and current cognitive status. We will consider therapeutic injections vs RFA in a future if she undergoes nerve blocks with positive response. 2. Proceed with Synvisc bilateral knee injections next month as scheduled on 02/27/23 at 07:30 arrival. This was confirmed with patient today. 3. Continue Tylenol Arthritis, encouraged to alternate ice and heat therapy, rest and elevation. All questions were answered and the patient is in agreement with the treatment plan. Follow up after injections and sooner as needed. I hereby testify that I spent 13 minutes in conversation with this patient as well as with planning and coordinating care for this patient and organizing this note. Telehealth Telehealth Location of provider rendering services: practice address Location of patient: address on file Patient Identification confirmed using: Name, : Yes Telehealth method: voice only Patient verbally consented to treatment: Yes Patient verbally consented to billing insurance company: Yes Patient informed of any privacy concerns related to visit: Yes Minutes spent on Phone/Video with Pt.: 13 Coding Level of Care Code Tele Est Pt Level 3 (54030) Diagnoses Osteoarthritis of left knee M17.12 Osteoarthritis of right knee M17.11 Bilateral knee pain M25.561; M25.562 Lumbar spondylosis M47.816
[2023-02-12 14:08] VITALS: BMI 27.9
== END 2023-02-12 14:19 | disposition home or self-care (01) ==
LOC: HO.PMC 14:07
PROVIDERS: PCP Internal Medicine; Visit Provider Nurse Practitioner Family
DX: M17.0 Bilateral primary osteoarthritis of knee (principal); M47.816 Spondylosis without myelopathy or radiculopathy, lumbar region
CPT/HCPCS: 99442

== ENCOUNTER → 2023-02-12 14:07 | Outpatient (BNVA) | payer MEDICARE, SELFPAY | PROVIDERS: PCP Internal Medicine; Visit Provider Nurse Practitioner Family ==

== ENCOUNTER 2023-02-27 06:03 | Outpatient (REF) | payer MEDICARE, SELFPAY ==
--- NOTE | ~2023-02-27 | FL_ITS ---
EXAMINATION: XR FLUOROSCOPY WITH IMAGES CLINICAL INFORMATION: Pain in right knee. COMPARISON: None available. TECHNIQUE: Fluoroscopy Supervised By: Dr. Bob Barillas. Fluoroscopy Time: 0.4 minutes. Cumulative Dose: 2.35 mGy. DAP: 0.318 Gycm2. Images: 2. FINDINGS: Images demonstrate needle placement and contrast injection of the bilateral knee joints FL/FL guidance in treatment room IMPRESSION: Fluoroscopy guidance for pain management procedure
== END 2023-02-27 06:04 | disposition home or self-care (01) ==
LOC: CF 06:03
PROVIDERS: Visit Provider Internal Medicine
DX: M17.0 Bilateral primary osteoarthritis of knee (principal)
CPT/HCPCS: 20610; J7325

== ENCOUNTER 2023-02-27 07:37 | Outpatient (AMB) | payer MEDICARE, SELFPAY ==
[2023-02-27 07:41] VITALS: BP 130/60; PULSE 71; RESP 14; O2SAT 98
--- NOTE | 2023-02-27 07:41 | A.OFFVIS_ITS ---
Intake Vital Signs 02/27/23 07:41 BP 130/60 Blood Pressure Location Lt brachial Position Sitting Respiration 14 Pulse 71 Pulse Source Pulse Oximeter Pulse Oximetry (%) 98 Oxygen Delivery Method Room Air Intake Visit Reasons: you synvic one inj Allergies amoxicillin [From PREVPAC] Allergy (Severe, Verified 02/27/23 07:42) RASH clarithromycin [From PREVPAC] Allergy (Severe, Verified 02/27/23 07:42) RASH lansoprazole [From PREVPAC] Allergy (Severe, Verified 02/27/23 07:42) RASH nirmatrelvir [From Paxlovid] Allergy (Unknown, Verified 02/27/23 07:42) Hives ritonavir [From Paxlovid] Allergy (Unknown, Verified 02/27/23 07:42) Hives tramadol Allergy (Unknown, Verified 02/27/23 07:42) Hives HPI you synvic one inj HPI Details Patient presents for scheduled procedure. Denies any recent cough, cold, infection, fever or other significant changes in medical history since last office visit. PFSH Medical History Asthma HLD (hyperlipidemia) HTN (hypertension) Vertigo Surgical History No pertinent past surgical history Family History Mother Heart disease Father Stomach cancer Social History Household Members: None Housing: Apartment Do you presently have visiting nurse or other home services: No Alcohol intake: current Alcohol intake frequency: holidays/special occasions only service: No Current occupational status: retired Current occupation: rt handed Physical Exam Vital Signs: Last Vital Signs Pulse 71 02/27/23 07:41 Resp 14 02/27/23 07:41 BP 130/60 02/27/23 07:41 Pulse Ox 98 02/27/23 07:41 Oxygen Delivery Method Room Air 02/27/23 07:41 Office Procedures Joint Injection/Drain Joint Injection/Drain Details: Bilateral knee intra-articular hyaluronic acid supplement (Synvisc One) injection under fluoroscopy Prep: site was prepped using sterile technique Injected: in the joint and other (1 mL Omnipaque followed by 6 mL Synvisc One) Approach Used: anteromedial (with fluoroscopic arthrogram) Procedure: The patient tolerated the procedure well Coding - Large joint Procedure code (CPT) selection complete Assessment & Plan Assessment & Plan (1) Bilateral knee pain: Code(s): M25.561 - Pain in right knee; M25.562 - Pain in left knee Qualifiers: Chronicity: chronic Qualified Code(s): M25.561 - Pain in right knee; M25.562 - Pain in left knee; G89.29 - Other chronic pain (2) Osteoarthritis of left knee: Code(s): M17.12 - Unilateral primary osteoarthritis, left knee Qualifiers: Osteoarthritis type: primary Qualified Code(s): M17.12 - Unilateral primary osteoarthritis, left knee (3) Osteoarthritis of right knee: Code(s): M17.11 - Unilateral primary osteoarthritis, right knee Qualifiers: Osteoarthritis type: primary Qualified Code(s): M17.11 - Unilateral primary osteoarthritis, right knee Plan Patient is status post bilateral intra-articular Synvisc 1 injections to her knees. Patient tolerated procedure well and was discharged home in stable co ndition with discharge instructions. All questions were answered. We will follow-up via telephone or in clinic to assess response to therapy. A follow-up appointment was made during today's visit. Orders: Orders FL guidance in treatment room Today M25.561 - Pain in right knee, M25.562 - Pain in left knee Coding Level of Care Code Procedure Only Diagnoses Chronic pain of both knees M25.561; M25.562; G89.29 Chronicity: chronic Primary osteoarthritis of left knee M17.12 Osteoarthritis type: primary Primary osteoarthritis of right knee M17.11 Osteoarthritis type: primary CPT Codes Coding - Large joint: 45369 - Large joint ([id number])
== END 2023-02-27 08:37 | disposition home or self-care (01) ==
LOC: HO.PMCPRC 07:37
PROVIDERS: PCP Internal Medicine; Visit Provider Internal Medicine
DX: M17.0 Bilateral primary osteoarthritis of knee (principal); G89.29 Other chronic pain
CPT/HCPCS: 20610; 77002

== ENCOUNTER 2023-03-07 12:53 | Outpatient (AMB) | payer MEDICARE, SELFPAY ==
[2023-03-07 13:06] VITALS: BP 159/69; PULSE 63; O2SAT 97; BMI 27.9
--- NOTE | 2023-03-07 13:06 | A.OFFVIS_ITS ---
Intake Vital Signs 03/07/23 13:06 Height 5 ft 9 in Weight 189 lb BMI 27.9 BP 159/69 H Blood Pressure Location Rt brachial Position Sitting Pulse 63 Pulse Source Pulse Oximeter Pulse Oximetry (%) 97 Oxygen Delivery Method Room Air Intake Visit Reasons: s/p Kwaku Synvisc one inj Intake Note: Pain today 0/10 Evaluator Required: No Accompanied by: Self / Same As Patient Allergies amoxicillin [From PREVPAC] Allergy (Severe, Verified 03/07/23 13:07) RASH clarithromycin [From PREVPAC] Allergy (Severe, Verified 03/07/23 13:07) RASH lansoprazole [From PREVPAC] Allergy (Severe, Verified 03/07/23 13:07) RASH nirmatrelvir [From Paxlovid] Allergy (Unknown, Verified 03/07/23 13:07) Hives ritonavir [From Paxlovid] Allergy (Unknown, Verified 03/07/23 13:07) Hives tramadol Allergy (Unknown, Verified 03/07/23 13:07) Hives HPI HPI Comments History of Present Illness Details Bilateral knee intra-articular hyaluronic acid supplement (Synvisc One) injection on 02/27/[address] Barillas. Patient reports ongoing 100% pain relief since procedure with significant improvement in her mobility, functioning, sleep and better social activities. She is content with her knee pain relief post injections. Patient reports her low back pain has been minimal and well managed with Tylenol Arthritis for which she requests a refill. Denies any recent cough, cold, infection, fever, weakness, tingling, numbness, or other significant changes in medical history since last office visit. Past Procedures: 02/27/23: Bilateral knee intra-articular hyaluronic acid supplement (Synvisc One) injections-100% pain relief PRIOR: Patient is a pleasant 82 years old female with chronic bilateral knee pain, presents today for initial evaluation of bilateral anterior knee pain. Denies any recent trauma, injury or falls. Her most recent cortisone injections were on 09/27/22 with temporary partial symptom relief. Her right knee is worse than left knee. Pain is worst with walking or climbing stairs. She also reports numbness over anterior knee with intermittent low back and hip pain. She notes that right knee pain is her most concerning pain generator at this time. Patient reports pain affects her daily activities, functions, mood, sleep, and social interactions. She continues to stay active, exercises daily and goes to [facility] 2 days a week by walking across the pool. Denies previous knee surgery or gel injections. She is interested in trying Synvisc injections prior interventional treatments, including Sprint PNS trial or genicular RFA. Denies any fever, weakness, numbness, tingling, bladder or bowel incontinence or saddle anesthesia. Location Bilateral knee pain Duration Chronic bilateral knee pain > 10 years Characteristics of symptom or complaint Aching, hot/ burning, stabbing, sharp, tingling, shooting, numb, cramping Aggravating or associated factors Bending, walking up and down stairs, getting up from sitting Relieving factors Tylenol Treatment Cortisone injections since 2013, last on 09/27/22-temporary results [facility] Medical History Vertigo Asthma HLD (hyperlipidemia) HTN (hypertension) Surgical History No pertinent past surgical history Family History Mother Heart disease Father Stomach cancer Social History Household Members: None Housing: Apartment Do you presently have visiting nurse or other home services: No Alcohol intake: current Alcohol intake frequency: holidays/special occasions only service: No Current occupational status: retired Current occupation: rt handed Review of Systems Const All systems reviewed & are unremarkable except as noted in HPI and below Physical Exam Vital Signs: Last Vital Signs Pulse 63 03/07/23 13:06 BP 159/69 H 03/07/23 13:06 Pulse Ox 97 03/07/23 13:06 Oxygen Delivery Method Room Air 03/07/23 13:06 BMI result Body Mass Index 27.9 General: Appears afebrile. Alert and oriented. Mood and affect appropriate. Follows and participates in conversation appropriately. Respiratory effort is unlabored. Able to transition from sit to stand unassisted. Ambulates with bilaterally normal heel strike and toe off. Results Reviewed Results Reviewed: XR LUMBOSACRAL SPINE WITH OBLIQUES 12/07/22 FINDINGS: There is bony demineralization. There is a very mild thoracolumbar dextroscoliosis. At L2-L3, there is marked disc space narrowing, with a 3 mm retrolisthesis. There is marked disc space narrowing at L4-L5 and L5-S1. No acute fracture or spondylolisthesis is seen. There is multi-level mild lumbar spondylosis. No instability is seen with flexion or extension. The posterior elements are intact. There is facet arthropathy, most pronounced at L5-S1. There are aortoiliac atherosclerotic calcifications. IMPRESSION: 1. There is multi-level lumbar degenerative disc disease, spondylosis and facet arthropathy. Degenerative disc disease is most pronounced at L2-L3, L4-L5 and L5-S1, where it is severe. 2. No instability is seen with flexion or extension. XR BILATERAL HIPS WITH AP PELVIS 12/07/22 COMPARISON: Right hip radiographs dated 05/21/2008. FINDINGS: No fracture. Hip joint spaces are maintained. Alignment is anatomic. Sacroiliac joints and pubic symphysis are normal. No abnormal soft tissue calcifications. There are small enthesophytes arising from the greater tuberosities of the bilateral proximal femora. IMPRESSION: Normal pelvis and bilateral hips. Bilateral knee x-ray 09/27/22 COMPARISON: Previous x-rays from 2010 and 2011 FINDINGS: Right: Bone alignment is normal. No fracture or dislocation. The femoral tibial joints are normal. Small osteophytes at the patellofemoral joint. Small joint effusion. Left: Bone alignment is normal. No fracture or dislocation. Normal femoral tibial joints. Small osteophytes at the patellofemoral joint. Small joint effusion. IMPRESSION: Mild arthritis at the patellofemoral joints and small joint effusions. Assessment & Plan Assessment & Plan (1) Bilateral knee pain: Code(s): M25.561 - Pain in right knee; M25.562 - Pain in left knee Qualifiers: Chronicity: chronic Qualified Code(s): M25.561 - Pain in right knee; M25.562 - Pain in left knee; G89.29 - Other chronic pain (2) Osteoarthritis of left knee: Code(s): M17.12 - Unilateral primary osteoarthritis, left knee Qualifiers: Osteoarthritis type: primary Qualified Code(s): M17.12 - Unilateral primary osteoarthritis, left knee (3) Osteoarthritis of right knee: Code(s): M17.11 - Unilateral primary osteoarthritis, right knee Qualifiers: Osteoarthritis type: primary Qualified Code(s): M17.11 - Unilateral primary osteoarthritis, right knee (4) Lumbar spondylosis: Code(s): M47.816 - Spondylosis without myelopathy or radiculopathy, lumbar region Plan Patient is status post bilateral intra-articular Synvisc 1 injections to her knees arthritis related pain with ongoing 100% pain relief since injections on 02/27/23. Patient will continue to monitor longevity of Synvisc injections and notify our office if her knee pain returns. Refill sent for Tylenol Arthritis. Patient would like to hold off on interventional treatments for her axial low back pain. All questions and concerns have been answered and patient agreed with the plan. Follow up as needed. Medications: Refilled acetaminophen ER (Arthritis Pain Relief (acetaminophen) ER) 1,300 mg (2 x 650 mg) PO Q12H 90 days PRN 360 tabs 3RF pain M17.11 - Unilateral primary osteoarthritis, right knee, M17.12 - Unilateral primary osteoarthritis, left knee, M25.561 - Pain in right knee, M25.562 - Pain in left knee Coding Level of Care Code Est Pt Level 3 (76808) Diagnoses Chronic pain of both knees M25.561; M25.562; G89.29 Chronicity: chronic Primary osteoarthritis of left knee M17.12 Osteoarthritis type: primary Primary osteoarthritis of right knee M17.11 Osteoarthritis type: primary Lumbar spondylosis M47.816
== END 2023-03-07 13:26 | disposition home or self-care (01) ==
PROVIDERS: PCP Internal Medicine; Visit Provider Nurse Practitioner Family
DX: M25.561 Pain in right knee (principal); M25.562 Pain in left knee; G89.29 Other chronic pain; M17.0 Bilateral primary osteoarthritis of knee; M47.816 Spondylosis without myelopathy or radiculopathy, lumbar region
CPT/HCPCS: 99213

== ENCOUNTER → 2023-03-07 12:53 | Outpatient (BNVA) | payer MEDICARE, SELFPAY | PROVIDERS: PCP Internal Medicine; Visit Provider Nurse Practitioner Family | DX: M25.561 Pain in right knee (principal); M25.562 Pain in left knee; M17.0 Bilateral primary osteoarthritis of knee; M47.816 Spondylosis without myelopathy or radiculopathy, lumbar region; G89.29 Other chronic pain | CPT/HCPCS: 99212 ==

== ENCOUNTER 2023-03-20 13:15 | Outpatient (REF) | payer MEDICARE, SELFPAY ==
[2023-03-20 15:01] LABS: Appearance Urine Clear; Color Urine Yellow; Glucose Urine UA Negative (Negative); Leukocyte Esterase Urine Trace (Negative); Nitrite Urine Negative (Negative); UMIC TRIGGER UACC YES; Urine Blood Negative (Negative); Urine Ketones Trace mg/dL (Negative); Urine Protein Negative (Neg-Trace)
[2023-03-20 15:06] LABS: Bacteria Urine None Seen (None Seen); Hyaline Casts Urine 0-2 /LPF (0-2); RBC Urine 0-2 /HPF (0-2); Squamous Epithelial Cell Urine 0-2 /HPF (0-2); WBC Urine 0-5 /HPF (0-5)
== END 2023-03-20 13:16 | disposition home or self-care (01) ==
LOC: HO.LAB 13:15
PROVIDERS: PCP Internal Medicine; Visit Provider Internal Medicine
DX: R30.0 Dysuria (principal)
CPT/HCPCS: 81001; 81003; 87086

== ENCOUNTER 2023-04-12 09:23 | Outpatient (REF) | payer MEDICARE, SELFPAY ==
--- NOTE | ~2023-04-12 | MM_ITS ---
EXAMINATION: BONE DENSITOMETRY CLINICAL INDICATION: Postmenopausal. COMPARISON: Previous BD dated 04/13/2009 and baseline BD dated 11/19/2003. TECHNIQUE: Using a [employer] DXA System (software version: 13.1) manufactured by [employer], dual-energy x-ray absorptiometry was performed of the lumbar spine and left hip. The images are of good technical quality. Summary results are attached. FINDINGS: LEFT FEMUR, NECK: Current: BMD 1.157 g/cm2, Z-score 2.8, T-score 0.9, normal. Baseline 04/13/2009: BMD 1.122 g/cm2. LEFT FEMUR, TOTAL: Current: BMD 1.311 g/cm2, Z-score 4.2, T-score 2.4, normal, 2.7% increase from baseline (<5% change is not significant). Baseline 04/13/2009: BMD 1.276 g/cm2. AP SPINE L1-L4 (excluding L3): The data of L1-L4 has been changed to exclude the L3 vertebral body, because degenerative sclerosis at this level may cause overestimation of lumbar spine density. Current: BMD 1.380 g/cm2, Z-score 3.1, T-score 1.7, normal, 2.0% increase from previous, 12.2% increase from baseline (<5% change is not significant). Prior: BMD 1.353 g/cm2. Baseline: BMD 1.230 g/cm2. IDENTIFIED RISK FACTORS: Menopause, low calcium intake, history of fracture (adult). HISTORY OF FRACTURE: Other. MEDICATIONS: Multivitamin, vitamin D. MM/XR DEXA axial skeleton IMPRESSION: 1. DIAGNOSIS: Normal bone density based on the lowest T-score value of 0.9 in the femoral neck applying World Health Organization criteria. 2. 10-YEAR FRACTURE RISK PREDICTION, FRAX: According to the guidelines, FRAX calculation should only be performed on patients in the osteopenia bone density category. Therefore, FRAX was not performed on this patient. 3. Treatment Recommendations: NOF guidelines recommend consideration for treatment in postmenopausal women and men age 50 and older presenting with the following: -A hip or vertebral (clinical or morphometric) fracture. -T-score less than or equal to -2.5 at the femoral neck or spine after appropriate evaluation to exclude secondary causes. -Low bone mass at the hip or spine and a 10-year fracture probability by FRAX of greater than or equal to 3% for hip fracture or greater than or equal to 20% for major osteoporotic fracture based on the [place] adapted WHO algorithm. 4. Other Recommendations: All treatment decisions require clinical judgment and consideration of individual patient factors, including patient preferences, comorbidities, previous drug use, risk factors not captured in the FRAX model (e.g. frailty, falls, vitamin D deficiency, increased bone turnover, interval significant decline in bone density) and possible under or overestimation of fracture risk by FRAX. FUTURE SCAN RECOMMENDATION: People with diagnosed cases of osteoporosis or at high risk for fracture should have regular bone mineral density tests. For patients eligible for Medicare, routine testing is allowed once every 2 years. The testing frequency can be increased to one year for patients who have rapidly progressing disease, those who are receiving or discontinuing medical therapy to restore bone mass, or have additional risk factors.
== END 2023-04-12 09:24 | disposition home or self-care (01) ==
LOC: HO.MAMMO 09:23
PROVIDERS: PCP Internal Medicine; Visit Provider Internal Medicine
DX: Z13.820 Encounter for screening for osteoporosis (principal); Z78.0 Asymptomatic menopausal state
CPT/HCPCS: 77080

== ENCOUNTER 2023-10-16 10:22 | Outpatient (REF) | payer MEDICARE, SELFPAY | END 2023-10-16 10:23 | disposition home or self-care (01) | LOC: HO.MAMMO 10:22 | PROVIDERS: PCP Internal Medicine; Visit Provider Internal Medicine | DX: Z12.31 Encounter for screening mammogram for malignant neoplasm of breast (principal) | CPT/HCPCS: 77063; 77067 ==

== ENCOUNTER → 2023-10-16 10:30 | Outpatient (BNV) | payer MEDICARE, SELFPAY | PROVIDERS: PCP Internal Medicine; Visit Provider Radiology Diagnostic Radiology | DX: Z12.31 Encounter for screening mammogram for malignant neoplasm of breast (principal) | CPT/HCPCS: 77063; 77067 ==

== ENCOUNTER 2023-11-01 12:26 | Outpatient (REF) | payer MEDICARE, SELFPAY ==
[2023-11-01 13:14] LABS: MANUAL DIFF FLAG NO
[2023-11-01 13:25] LABS: Basophils Percent Auto 0.5 % (0-2); Eosinophils Absolute Auto 0.2 X10*3/uL (0.0-0.4); Eosinophils Percent Auto 4.1 % (0-4); Hematocrit 35.2 % (37.0-47.0); Imm Gran Abs Auto 0.01 X10*3/uL (0.00-0.03); Imm Gran Pct Auto 0.2 % (0.0-0.4); Lymphocytes Absolute Auto 1.7 X10*3/uL (1.2-4.9); Lymphocytes Percent Auto 30.5 % (20-40); Mean Corpuscular HGB Conc 34.1 g/dl (31.0-35.0); Mean Corpuscular Hemoglobin 32.8 pg (27.0-33.0); Mean Corpuscular Volume 96.2 fL (80.0-98.0); Mean Platelet Volume 9.9 fL (9.4-12.3); Monocytes Absolute Auto 0.7 X10*3/uL (0.1-1.2); Monocytes Percent Auto 11.9 % (2-11); Neutrophils Percent Auto 52.8 % (45-73); Platelet Count 262 X10*3/uL (160-400); Red Blood Count 3.66 X10*6/uL (4.20-5.50); Red Cell Distribution Width 12.5 % (11.0-16.0); White Blood Count 5.6 X10*3/uL (4.8-10.8)
[2023-11-01 14:05] LABS: Alanine Aminotransferase 17 U/L (0-31); Albumin Level 4.2 g/dL (3.5-5.0); Alkaline Phosphatase 62 U/L (39-117); Anion Gap 10 (12-20); Aspartate Amino Transferase 18 U/L (5-31); Bilirubin Total 0.5 mg/dL (0.0-1.0); Blood Urea Nitrogen 15 mg/dL (9-16); Calcium 9.7 mg/dL (8.4-10.2); Carbon Dioxide 29 mmol/L (22-29); Chloride 99 mmol/L (96-108); Estimated Glomerular Filt Rate > 60; Glucose Random 86 mg/dL (60-115); Sodium 134 mmol/L (135-145); Total Protein 7.4 g/dL (6.5-8.0)
[2023-11-01 14:17] LABS: Vitamin B12 581 pg/mL (200-900)
[2023-11-01 14:25] LABS: T4 Thyroxine 6.3 ug/dL (4.5-12.0); Thyroid Stimulating Hormone 1.27 uIU/mL (0.32-4.0)
== END 2023-11-01 12:27 | disposition home or self-care (01) ==
LOC: HO.10HDL 12:26
PROVIDERS: Visit Provider Internal Medicine
DX: R53.83 Other fatigue (principal); I10 Essential (primary) hypertension; J45.909 Unspecified asthma, uncomplicated
CPT/HCPCS: 36415; 80053; 82607; 84436; 84443; 85025

== ENCOUNTER 2023-11-22 09:23 | Outpatient (AMB) | payer MEDICARE, SELFPAY ==
--- NOTE | 2023-11-22 09:25 | MHC.OFFVIS ---
Vital Signs 11/22/23 09:28 Height 5 ft 9 in Weight 189 lb BMI 27.9 BP 150/70 H Blood Pressure Location Rt brachial Position Sitting Pulse 71 Pulse Source Pulse Oximeter Pulse Oximetry (%) 99 Oxygen Delivery Method Room Air Intake Visit Reasons: Hip pain Intake Note: Pain today 08/20 Chair Maker Required: No Accompanied by: Self / Same As Patient Allergies amoxicillin [From PREVPAC] Allergy (Severe, Verified 11/22/23 09:29) RASH clarithromycin [From PREVPAC] Allergy (Severe, Verified 11/22/23 09:29) RASH lansoprazole [From PREVPAC] Allergy (Severe, Verified 11/22/23 09:29) RASH nirmatrelvir [From Paxlovid] Allergy (Unknown, Verified 11/22/23 09:29) Hives ritonavir [From Paxlovid] Allergy (Unknown, Verified 11/22/23 09:29) Hives tramadol Allergy (Unknown, Verified 11/22/23 09:29) Hives HPI Comments Details: Patient presents today for follow up for right sided low back pain with radiation into her right hip and right knee pain. She was last seen in our office in February after bilateral Synvisc knee injections. Patient reports her left knee pain has been minimal but right knee pain is back to baseline and worse with walking, squatting or climbing stairs. She would like to repeat right knee Synvisc injection and address her axial low back and right lateral hip pain with interventional treatments. Patient presents today with localized tenderness to right sacroiliac joint and right greater trochanteric bursa areas. She has been taking Tylenol and heat/ice packs with continued symptoms. Denies any recent cough, cold, infection, fever, bladder or bowel incontinence or saddle anesthesia, any significant changes in her medical history, medications or recent hospitalizations. Past Procedures: 02/27/23: Bilateral knee intra-articular hyaluronic acid supplement (Synvisc One) injections-100% pain relief for 8 months PRIOR: Patient is a pleasant 82 years old female with chronic bilateral knee pain, presents today for initial evaluation of bilateral anterior knee pain. Denies any recent trauma, injury or falls. Her most recent cortisone injections were on 09/27/22 with temporary partial symptom relief. Her right knee is worse than left knee. Pain is worst with walking or climbing stairs. She also reports numbness over anterior knee with intermittent low back and hip pain. She notes that right knee pain is her most concerning pain generator at this time. Patient reports pain affects her daily activities, functions, mood, sleep, and social interactions. She continues to stay active, exercises daily and goes to [facility] 2 days a week by walking across the pool. Denies previous knee surgery or gel injections. She is interested in trying Synvisc injections prior interventional treatments, including Sprint PNS trial or genicular RFA. Denies any fever, weakness, numbness, tingling, bladder or bowel incontinence or saddle anesthesia. Location Bilateral knee pain Duration Chronic bilateral knee pain > 10 years Characteristics of symptom or complaint Aching, hot/ burning, stabbing, sharp, tingling, shooting, numb, cramping Aggravating or associated factors Bending, walking up and down stairs, getting up from sitting Relieving factors Tylenol Treatment Cortisone injections since 2013, last on 09/27/22-temporary results [facility] Medical History Vertigo Asthma HLD (hyperlipidemia) HTN (hypertension) Surgical History No pertinent past surgical history Family History Mother Heart disease Father Stomach cancer Social History Household Members: None Housing: Apartment Do you presently have visiting nurse or other home services: No Alcohol intake: current Alcohol intake frequency: holidays/special occasions only Comment: pt rings appropriately service: No Current occupational status: retired Current occupation: rt handed Review of Systems Const All systems reviewed & are unremarkable except as noted in HPI and below Physical Exam Vital Signs: Last Vital Signs Pulse 71 11/22/23 09:28 BP 150/70 H 11/22/23 09:28 Pulse Ox 99 11/22/23 09:28 Oxygen Delivery Method Room Air 11/22/23 09:28 BMI result Body Mass Index 27.9 General: Appears afebrile. Alert and oriented. Mood and affect appropriate. Follows and participates in conversation appropriately. Respiratory effort is unlabored. No cough. Able to transition from sit to stand unassisted. General: Yes no CVA tenderness Back/Spine/Pelvis Other: Lumbar extension reproduces moderate pain. Positive facet loading bilaterally. Mild lateral hip pain with I/E hip rotations bilaterally, no groin pain. Moderate TTP to right GTB. Mauri, SI compression, Arley's, and Stinchfield tests positive bilaterally, right>left. Strength 5/5 left and 4/5 right hip flexion bilaterally. Back: no CVA tenderness Cervical Spine: cervical ROM normal, No Cervical spine tenderness and No step off deformity Thoracic/Lumbar Spine: thoracic and lumbar spine normal to inspection, Lasegue's sign negative, straight leg raise negative bilaterally, pain with thoraco-lumbar ROM, paraspinal muscle tenderness, thoraco-lumbar ROM limited, No thoracic spinal tenderness and lumbar spinal tenderness at L3, at L4 and at L5 Pelvis: buttock tenderness on the right Sacroiliac joints: bilaterally tender to palpation Extrem Other: Bilateral knee localized tenderness in the projection of lateral lines. No swelling, no effusion, no erythema. General: Yes capillary refill normal, Yes no clubbing, cyanosis or edema and Yes no calf tenderness Results Reviewed Results Reviewed: XR LUMBOSACRAL SPINE WITH OBLIQUES 12/07/22 FINDINGS: There is bony demineralization. There is a very mild thoracolumbar dextroscoliosis. At L2-L3, there is marked disc space narrowing, with a 3 mm retrolisthesis. There is marked disc space narrowing at L4-L5 and L5-S1. No acute fracture or spondylolisthesis is seen. There is multi-level mild lumbar spondylosis. No instability is seen with flexion or extension. The posterior elements are intact. There is facet arthropathy, most pronounced at L5-S1. There are aortoiliac atherosclerotic calcifications. IMPRESSION: 1. There is multi-level lumbar degenerative disc disease, spondylosis and facet arthropathy. Degenerative disc disease is most pronounced at L2-L3, L4-L5 and L5-S1, where it is severe. 2. No instability is seen with flexion or extension. XR BILATERAL HIPS WITH AP PELVIS 12/07/22 COMPARISON: Right hip radiographs dated 05/21/2008. FINDINGS: No fracture. Hip joint spaces are maintained. Alignment is anatomic. Sacroiliac joints and pubic symphysis are normal. No abnormal soft tissue calcifications. There are small enthesophytes arising from the greater tuberosities of the bilateral proximal femora. IMPRESSION: Normal pelvis and bilateral hips. Bilateral knee x-ray 09/27/22 COMPARISON: Previous x-rays from 2010 and 2011 FINDINGS: Right: Bone alignment is normal. No fracture or dislocation. The femoral tibial joints are normal. Small osteophytes at the patellofemoral joint. Small joint effusion. Left: Bone alignment is normal. No fracture or dislocation. Normal femoral tibial joints. Small osteophytes at the patellofemoral joint. Small joint effusion. IMPRESSION: Mild arthritis at the patellofemoral joints and small joint effusions. Assessment & Plan Assessment & Plan (1) Osteoarthritis of right knee: Code(s): M17.11 - Unilateral primary osteoarthritis, right knee Category: Medical Qualifiers: Osteoarthritis type: primary Qualified Code(s): M17.11 - Unilateral primary osteoarthritis, right knee (2) Bilateral knee pain: Code(s): M25.561 - Pain in right knee; M25.562 - Pain in left knee Category: Medical Qualifiers: Chronicity: chronic Qualified Code(s): M25.561 - Pain in right knee; M25.562 - Pain in left knee; G89.29 - Other chronic pain (3) Lumbar spondylosis: Code(s): M47.816 - Spondylosis without myelopathy or radiculopathy, lumbar region Category: Medical (4) Osteoarthritis of left knee: Code(s): M17.12 - Unilateral primary osteoarthritis, left knee Category: Medical Qualifiers: Osteoarthritis type: primary Qualified Code(s): M17.12 - Unilateral primary osteoarthritis, left knee (5) Bilateral hip pain: Code(s): M25.551 - Pain in right hip; M25.552 - Pain in left hip Category: Medical (6) Greater trochanteric bursitis of right hip: Code(s): M70.61 - Trochanteric bursitis, right hip Category: Medical Plan 1. Schedule Bilateral Diagnostic L3-L4-L5 MBB with local and fluoroscopy for chronic axial low back pain. The risks, consequences, alternatives, and benefits of various treatment options were reviewed again with the patient in great detail, including conservative management, injections and procedures. 2. Subsequently schedule Synvisc right knee injections and Therapeutic right GTB injection with local and fluoroscopy. 3. Continue Tylenol Arthritis, encouraged to alternate ice and heat therapy, rest and elevation. 4. Script provided for Celebrex and refill for Lidocaine patches. Side effects and precautions discussed today. All questions were answered and the patient is in agreement with the treatment plan. Follow up after injections and sooner as needed. Medications: New celecoxib (Celebrex) Take it with food and full glass of water. Avoid other NSAIDs. 100 mg PO BID 30 caps 0RF pain G89.29 - Other chronic pain, M17.11 - Unilateral primary osteoarthritis, right knee, M25.561 - Pain in right knee, M25.562 - Pain in left knee, M47.816 - Spondylosis without myelopathy or radiculopathy, lumbar region Refilled lidocaine 5% 2 patches topical DAILY 30 days 30 ea 1RF pain M17.11 - Unilateral primary osteoarthritis, right knee, M17.12 - Unilateral primary osteoarthritis, left knee, M25.561 - Pain in right knee, M25.562 - Pain in left knee Coding Level of Care Code Est Pt Level 4 (31954) Diagnoses Primary osteoarthritis of right knee M17.11 Osteoarthritis type: primary Chronic pain of both knees M25.561; M25.562; G89.29 Chronicity: chronic Lumbar spondylosis M47.816 Primary osteoarthritis of left knee M17.12 Osteoarthritis type: primary Bilateral hip pain M25.551; M25.552 Greater trochanteric bursitis of right hip M70.61
[2023-11-22 09:28] VITALS: BP 150/70; PULSE 71; O2SAT 99; BMI 27.9
== END 2023-11-22 10:13 | disposition home or self-care (01) ==
PROVIDERS: PCP Internal Medicine; Visit Provider Nurse Practitioner Family
DX: M17.0 Bilateral primary osteoarthritis of knee (principal); M25.561 Pain in right knee; M25.562 Pain in left knee; G89.29 Other chronic pain; M47.816 Spondylosis without myelopathy or radiculopathy, lumbar region; M25.551 Pain in right hip; M25.552 Pain in left hip; M70.61 Trochanteric bursitis, right hip
CPT/HCPCS: 99214

== ENCOUNTER → 2023-11-22 09:23 | Outpatient (BNVA) | payer MEDICARE, SELFPAY | PROVIDERS: PCP Internal Medicine; Visit Provider Nurse Practitioner Family | DX: M17.0 Bilateral primary osteoarthritis of knee (principal); M25.561 Pain in right knee; M25.562 Pain in left knee; M47.816 Spondylosis without myelopathy or radiculopathy, lumbar region; M25.551 Pain in right hip; M25.552 Pain in left hip; M70.61 Trochanteric bursitis, right hip | CPT/HCPCS: 99212 ==

== ENCOUNTER 2023-11-25 11:18 | Outpatient (AMB) | payer MEDICARE, SELFPAY ==
[2023-11-25 11:23] VITALS: BP 138/68; PULSE 67; BMI 28.0
--- NOTE | 2023-11-25 11:23 | A.OFFVIS_ITS ---
Vital Signs 11/25/23 11:23 Height 5 ft 9 in Weight 189 lb 9.561 oz BMI 28.0 BP 138/68 Blood Pressure Location Lt brachial Position Sitting Pulse 67 Pulse Source Monitor Intake Visit Reasons: 1 year follow up Allergies amoxicillin [From PREVPAC] Allergy (Severe, Verified 11/22/23 09:29) RASH clarithromycin [From PREVPAC] Allergy (Severe, Verified 11/22/23 09:29) RASH lansoprazole [From PREVPAC] Allergy (Severe, Verified 11/22/23 09:29) RASH nirmatrelvir [From Paxlovid] Allergy (Unknown, Verified 11/22/23 09:29) Hives ritonavir [From Paxlovid] Allergy (Unknown, Verified 11/22/23 09:29) Hives tramadol Allergy (Unknown, Verified 11/22/23 09:29) Hives Medication List - Last Reconciled 11/25/23 by Ivan Interiano MD acetaminophen ER (Arthritis Pain Relief (acetaminophen) ER) 1,300 mg (2 x 650 mg) PO Q12H PRN 90 days albuterol sulfate 90 mcg/actuation (ProAir HFA) 2 puffs PO QID amlodipine 2.5 mg PO DAILY aspirin 81 mg PO DAILY atorvastatin 40 mg PO DAILY diclofenac sodium 1% (Arthritis Pain (diclofenac)) 4 grams topical QID PRN meclizine 12.5 mg PO TID PRN metoprolol succinate ER 50 mg PO DAILY HPI Comments Details: Keyla returns for follow-up. To recall, in 2019 she was admitted for stroke. In that context had slight elevation in troponins. Recovered from the stroke itself. Since last seen, no specific complaints. No angina or shortness of breath or in fact anything cardiac sounding. Otherwise, getting along fine. [facility] Medical History Vertigo Asthma HLD (hyperlipidemia) HTN (hypertension) Surgical History No pertinent past surgical history Family History Mother Heart disease Father Stomach cancer Social History Household Members: None Housing: Apartment Do you presently have visiting nurse or other home services: No Alcohol intake: current Alcohol intake frequency: holidays/special occasions only Comment: pt rings appropriately service: No Current occupational status: retired Current occupation: rt handed Review of Systems Const Denies weakness ENT Denies dizziness Card Denies chest pain, Denies chest pain with activity, Denies syncope, Denies rapid heart rate, Denies pedal edema, Denies edema, Denies leg edema, Denies lightheadedness, Denies palpitations, Denies dyspnea, Denies dyspnea on exertion and Denies orthopnea Resp Denies cough, Denies dyspnea and Denies dyspnea on exertion GI Denies hematochezia and Denies change in stool character Musc Denies abnormal gait, Denies muscle cramps, Denies muscle weakness, Denies numbness, Denies radiating pain into limb and Denies tingling Neuro Denies abnormal gait, Denies dizziness, Denies syncope, Denies numbness, Denies tingling and Denies weakness Endo Denies palpitations Physical Exam Vital Signs: Last Vital Signs Pulse 67 11/25/23 11:23 BP 138/68 11/25/23 11:23 BMI result Body Mass Index 28.0 Const General: comfortable and no acute distress Orientation/consciousness: patient oriented x3 HEENT Other: Unremarkable Head: Yes normal to inspection Neck Neck: Yes normal visual inspection Chest Chest palpation & inspection: normal inspection of the chest Resp Auscultation: clear to auscultation bilaterally Cardio Palpation: normal PMI Heart sounds: S1 normal heart sound present, S2 normal heart sound present, no gallops, Murmur heart sound present systolic II/ and at the right sternal border and no rubs GI Palpation (GI): Soft to palpation Back/Spine/Pelvis Other: unremarkable Skin General skin exam: no rashes or lesions noted Neuro General: patient oriented x3 Extrem General: Yes normal to inspection Psych Mental Status: mental status grossly normal Office Procedures EKG Details: EKG with sinus rhythm at 67/Min; low-voltage QRS complexes; [place] [id number], Complete Assessment & Plan Assessment & Plan (1) Atherosclerotic cardiovascular disease: Code(s): I25.10 - Atherosclerotic heart disease of zuni coronary artery without angina pectoris Category: Medical (2) Ischemic stroke: Code(s): I63.9 - Cerebral infarction, unspecified Category: Medical (3) Essential hypertension: Code(s): I10 - Essential (primary) hypertension Category: Medical (4) HLD (hyperlipidemia): Code(s): E78.5 - Hyperlipidemia, unspecified Category: Medical Plan Clinically, stable with no overt symptoms. Cardiac testing- Myocardial perfusion imaging- 05/2020- no ischemia. Fixed distal anterior/apical defect thought to be from soft tissue artifact. Echo-04/2020-LVEF 60-65%; mild aortic valve calcification. With regard to medications, continue aspirin. Blood pressure is slightly high and hence we can go up on the amlodipine to 5 mg daily. Also remains on beta- blockers. LDL levels are in the 70s and 80s. We discussed about possibly increasing statins but she would rather leave it as it is. 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 Weight loss would help. Follow-up 1 year. In the interim, she will call with concerns. Medications: New amlodipine 5 mg PO DAILY 90 tabs 3RF Discontinued amlodipine Discontinued Reason: Doctor's Order 2.5 mg PO DAILY 90 tabs 3RF Coding Level of Care Code Est Pt Level 4 (64303) Diagnoses Atherosclerotic cardiovascular disease I25.10 Ischemic stroke I63.9 Essential hypertension I10 HLD (hyperlipidemia) E78.5 CPT Codes EKG - CPT: 46538-[id number], Complete ([id number])
== END 2023-11-25 11:47 | disposition home or self-care (01) ==
PROVIDERS: PCP Internal Medicine; Visit Provider Internal Medicine
DX: I25.10 Atherosclerotic heart disease of native coronary artery without angina pectoris (principal); I63.9 Cerebral infarction, unspecified; I10 Essential (primary) hypertension; E78.5 Hyperlipidemia, unspecified
CPT/HCPCS: 93010; 99214

== ENCOUNTER → 2023-11-25 11:18 | Outpatient (BNVA) | payer MEDICARE, SELFPAY | PROVIDERS: PCP Internal Medicine; Visit Provider Internal Medicine | DX: I25.10 Atherosclerotic heart disease of native coronary artery without angina pectoris (principal); I10 Essential (primary) hypertension; E78.5 Hyperlipidemia, unspecified; Z86.73 Personal history of transient ischemic attack (TIA), and cerebral infarction without residual deficits | CPT/HCPCS: 93005; 99212 ==

== ENCOUNTER 2024-01-31 10:23 | Outpatient (AMB) | payer MEDICARE, SELFPAY ==
--- NOTE | 2024-01-31 10:28 | MHC.OFFVIS ---
Vital Signs 01/31/24 10:29 Height 5 ft 9 in Weight 191 lb BMI 28.2 BP 183/72 H Blood Pressure Location Lt brachial Position Sitting Respiration 15 Pulse 91 Pulse Source Pulse Oximeter Pulse Oximetry (%) 98 Oxygen Delivery Method Room Air Intake Visit Reasons: Right GTB inj Allergies amoxicillin [From PREVPAC] Allergy (Severe, Verified 02/19/24 11:21) RASH clarithromycin [From PREVPAC] Allergy (Severe, Verified 02/19/24 11:21) RASH lansoprazole [From PREVPAC] Allergy (Severe, Verified 02/19/24 11:21) RASH nirmatrelvir [From Paxlovid] Allergy (Unknown, Verified 02/19/24 11:21) Hives ritonavir [From Paxlovid] Allergy (Unknown, Verified 02/19/24 11:21) Hives tramadol Allergy (Unknown, Verified 02/19/24 11:21) Hives Medication List - Last Reconciled 01/31/24 by Renetta López LPN acetaminophen ER 1,300 mg (2 x 650 mg) PO Q12H PRN albuterol sulfate 90 mcg/actuation (ProAir HFA) 2 puffs PO QID amlodipine 5 mg PO DAILY aspirin 81 mg PO DAILY atorvastatin 40 mg PO DAILY diclofenac sodium 1% (Arthritis Pain (diclofenac)) 4 grams topical QID PRN meclizine 12.5 mg PO TID PRN metoprolol succinate ER 50 mg PO DAILY HPI HPI Right GTB inj: Details: 83-year-old female who presents today to the office for a right corticosteroid knee injection. Denies any recent cough, cold, infection, fever or other significant changes in medical history since last office visit. She noticed elevated blood pressure readings at home and today in the office. She is taking amlodipine and metoprolol. Past procedures 02/27/23: Bilateral knee intra-articular hyaluronic acid supplement (Synvisc One) injection under fluoroscopy: [facility] Medical History Vertigo Asthma HLD (hyperlipidemia) HTN (hypertension) Surgical History No pertinent past surgical history Family History Mother Heart disease Father Stomach cancer Social History Household Members: None Housing: Apartment Do you presently have visiting nurse or other home services: No Alcohol intake: current Alcohol intake frequency: holidays/special occasions only Comment: pt rings appropriately service: No Current occupational status: retired Current occupation: rt handed Review of Systems Const All systems reviewed & are unremarkable except as noted in HPI and below Physical Exam Vital Signs: Last Vital Signs Pulse 91 01/31/24 10:29 Resp 15 01/31/24 10:29 BP 183/72 H 01/31/24 10:29 Pulse Ox 98 01/31/24 10:29 Oxygen Delivery Method Room Air 01/31/24 10:29 BMI result Body Mass Index 28.2 General: Appears afebrile. Alert and oriented. Mood and affect appropriate. Follows and participates in conversation appropriately. Respiratory effort is unlabored. Able to transition from sit to stand unassisted. Ambulates with bilaterally normal heel strike and toe off. Office Procedures Joint Injection/Aspiration Joint Injection/Aspiration Details: Right knee corticosteroid injection, US guided, suprapatellar approach Primary Site: right knee Prep: site was prepped using sterile technique Injected: 40 mg of, Kenalog and with 3 mL of (normal saline) Approach Used: anteromedial Procedure: The patient tolerated the procedure well Coding Details: An ultrasound image of the injection was taken and stored in the permanent record. 18138 - Large joint (right US guided) Procedure code (CPT) selection complete Results Reviewed Results Reviewed: No imaging is available for review. Assessment & Plan Assessment & Plan (1) Bilateral knee pain: Code(s): M25.561 - Pain in right knee; M25.562 - Pain in left knee Category: Medical Qualifiers: Chronicity: chronic Qualified Code(s): M25.561 - Pain in right knee; M25.562 - Pain in left knee; G89.29 - Other chronic pain (2) Osteoarthritis of left knee: Code(s): M17.12 - Unilateral primary osteoarthritis, left knee Category: Medical Qualifiers: Osteoarthritis type: primary Qualified Code(s): M17.12 - Unilateral primary osteoarthritis, left knee (3) Osteoarthritis of right knee: Code(s): M17.11 - Unilateral primary osteoarthritis, right knee Category: Medical Qualifiers: Osteoarthritis type: primary Qualified Code(s): M17.11 - Unilateral primary osteoarthritis, right knee Plan Patient is status post right knee cortico-steroid injection, US guided, suprapatellar approach. Patient tolerated procedure well and was discharged home in stable condition with discharge instructions. All questions were answered. We will follow-up in two weeks via telephone or in clinic to assess response to therapy. A follow-up appointment was made during today's visit. Scribed for Dr. Barillas by Yuriy Cervantes, medical administrator, on 01/31/2024. I, Dr. Barillas, have personally reviewed and agree with the information entered by the scribe. Coding Level of Care Code Procedure Only Diagnoses Chronic pain of both knees M25.561; M25.562; G89.29 Chronicity: chronic Primary osteoarthritis of left knee M17.12 Osteoarthritis type: primary Primary osteoarthritis of right knee M17.11 Osteoarthritis type: primary CPT Codes Coding - 67508 Large joint: 83966 - Large joint ([id number])
[2024-01-31 10:29] VITALS: BP 183/72; PULSE 91; RESP 15; O2SAT 98; BMI 28.2
== END 2024-01-31 11:10 | disposition home or self-care (01) ==
PROVIDERS: PCP Internal Medicine; Visit Provider Internal Medicine
DX: M17.11 Unilateral primary osteoarthritis, right knee (principal)
CPT/HCPCS: 20611

== ENCOUNTER → 2024-01-31 10:23 | Outpatient (BNVA) | payer MEDICARE, SELFPAY | PROVIDERS: PCP Internal Medicine; Visit Provider Internal Medicine | DX: M17.0 Bilateral primary osteoarthritis of knee (principal); M25.561 Pain in right knee; M25.562 Pain in left knee; G89.29 Other chronic pain | CPT/HCPCS: 20611; J3301 ==

== ENCOUNTER 2024-02-19 11:02 | Outpatient (AMB) | payer MEDICARE, SELFPAY ==
--- NOTE | 2024-02-19 11:17 | A.OFFVIS_ITS ---
Vital Signs 02/19/24 11:18 Height 5 ft 9 in Weight 187 lb BMI 27.6 BP 184/78 H Blood Pressure Location Lt brachial Position Sitting Pulse 70 Pulse Source Pulse Oximeter Pulse Oximetry (%) 97 Oxygen Delivery Method Room Air Intake Visit Reasons: Right GTB inj Allergies amoxicillin [From PREVPAC] Allergy (Severe, Verified 02/19/24 11:21) RASH clarithromycin [From PREVPAC] Allergy (Severe, Verified 02/19/24 11:21) RASH lansoprazole [From PREVPAC] Allergy (Severe, Verified 02/19/24 11:21) RASH nirmatrelvir [From Paxlovid] Allergy (Unknown, Verified 02/19/24 11:21) Hives ritonavir [From Paxlovid] Allergy (Unknown, Verified 02/19/24 11:21) Hives tramadol Allergy (Unknown, Verified 02/19/24 11:21) Hives Medication List - Last Reconciled 02/19/24 by Renetta López LPN acetaminophen ER 1,300 mg (2 x 650 mg) PO Q12H PRN albuterol sulfate 90 mcg/actuation (ProAir HFA) 2 puffs PO QID amlodipine 5 mg PO DAILY aspirin 81 mg PO DAILY atorvastatin 40 mg PO DAILY diclofenac sodium 1% (Arthritis Pain (diclofenac)) 4 grams topical QID PRN meclizine 12.5 mg PO TID PRN metoprolol succinate ER 50 mg PO DAILY HPI HPI Right GTB inj: Details: 83-year-old female who presents today to the office for right GTB injection. Denies any recent cough, cold, infection, fever or other significant changes in medical history since last office visit. Past procedures 02/27/23: Bilateral knee intra-articular hyaluronic acid supplement (Synvisc One) injection under fluoroscopy: 100% relief. [facility] Medical History Vertigo Asthma HLD (hyperlipidemia) HTN (hypertension) Surgical History No pertinent past surgical history Family History Mother Heart disease Father Stomach cancer Social History (Reviewed 07/12/24 @ 09:50 by NEEMA Green Household Members: None Housing: Apartment Do you presently have visiting nurse or other home services: No Alcohol intake: current Alcohol intake frequency: holidays/special occasions only Comment: pt rings appropriately service: No Current occupational status: retired Current occupation: rt handed Physical Exam Vital Signs: Last Vital Signs Pulse 70 02/19/24 11:18 BP 184/78 H 02/19/24 11:18 Pulse Ox 97 02/19/24 11:18 Oxygen Delivery Method Room Air 02/19/24 11:18 BMI result Body Mass Index 27.6 General: Appears afebrile. Alert and oriented. Mood and affect appropriate. Follows and participates in conversation appropriately. Respiratory effort is unlabored. Able to transition from sit to stand unassisted. Ambulates with bilaterally normal heel strike and toe off. Office Procedures Joint Injection/Aspiration Joint Injection/Aspiration Details: Greater Trochanteric Bursa Injection, right, ultrasound guided. After informed written consent was obtained, the patient was placed in the lateral position. Pre-procedure oxygen saturation, heart rate, and blood pressure were recorded. The skin was prepped with Chloroprep, and draped in a sterile fashion. With the use of ultrasound, the greater trochanter was identified. A 21-gauge 80 mm needle was then advanced toward the trochanteric bursa under ultrasound visualization. Once in position, and after negative aspiration, 40 mg of Kenalog mixed with 0.5% ropivacaine (3mL total). There was no evidence of paresthesia throughout needle placement. The needle was withdrawn. The patient tolerated the procedure well and there was no evidence of procedural complications. The patient was observed in the procedure room for 20 minutes, vitals were stable, and discharged in stable condition. Coding Details: An ultrasound image of the injection was taken and stored in the permanent record. 65041 - Glenohumeral/Tronchanteric Bursa/Intraarticular Procedure code (CPT) selection complete Assessment & Plan Assessment & Plan (1) Greater trochanteric bursitis of right hip: Code(s): M70.61 - Trochanteric bursitis, right hip Category: Medical Plan Patient is status post right GTB injection. Patient tolerated procedure well and was discharged home in stable condition with discharge instructions. All questions were answered. We will follow-up in two weeks via telephone or in clinic to assess response to therapy. A follow-up appointment was made during today's visit. Scribed for Dr. Barillas by Jon medical office technology instructor, on 02/19/2024. I, Dr. Barillas, have personally reviewed and agree with the information entered by the scribe. Coding Level of Care Code Procedure Only Diagnoses Greater trochanteric bursitis of right hip M70.61 CPT Codes Coding - Joint 7: 74146 - Glenohumeral/Tronchanteric Bursa/Intraarticular ([id number])
[2024-02-19 11:18] VITALS: BP 184/78; PULSE 70; O2SAT 97; BMI 27.6
== END 2024-02-19 11:38 | disposition home or self-care (01) ==
PROVIDERS: PCP Internal Medicine; Visit Provider Internal Medicine
DX: M70.61 Trochanteric bursitis, right hip (principal)
CPT/HCPCS: 20611

== ENCOUNTER → 2024-02-19 11:02 | Outpatient (BNVA) | payer MEDICARE, SELFPAY | PROVIDERS: PCP Internal Medicine; Visit Provider Internal Medicine | DX: M70.61 Trochanteric bursitis, right hip (principal) | CPT/HCPCS: 20611; J2795; J3301 ==

== ENCOUNTER 2024-05-23 13:31 | Outpatient (AMB) | payer MEDICARE, SELFPAY ==
--- NOTE | 2024-05-23 13:33 | MHC.OFFWIV ---
Intake Vital Signs 05/23/24 13:35 Height 5 ft 9 in Weight 192 lb BMI 28.4 BP 150/60 H Blood Pressure Location Lt brachial Position Sitting Pulse 76 Pulse Source Pulse Oximeter Pulse Oximetry (%) 98 Oxygen Delivery Method Room Air Intake Visit Reasons: EP elevated BP, weak Intake Note: Patient here for elevated BP at home which started today. Pt states she did have a fall the other day and fell on a cement floor and did hit her head. Patient Tobacco Use Status: Never used Tobacco Allergies amoxicillin [From PREVPAC] Allergy (Severe, Verified 05/23/24 15:51) RASH clarithromycin [From PREVPAC] Allergy (Severe, Verified 05/23/24 15:51) RASH lansoprazole [From PREVPAC] Allergy (Severe, Verified 05/23/24 15:51) RASH nirmatrelvir [From Paxlovid] Allergy (Unknown, Verified 05/23/24 15:51) Hives ritonavir [From Paxlovid] Allergy (Unknown, Verified 05/23/24 15:51) Hives tramadol Allergy (Unknown, Verified 05/23/24 15:51) Hives Do you need a note to return to daycare/school/sports/work: No HPI EP elevated BP, weak HPI Details Patient is an 84-year-old female comes to the walk-in clinic 5 days after she tripped and fell, striking the left side of her forehead on the cement ground. Patient has history of acute ischemic stroke affecting her left lower extremity, as well as atherosclerotic cardiovascular disease, with an NSTEMI. She takes a baby aspirin every day, and she has not stopped this since she fell. She reports that she had some blurred vision to her left eye after she fell, and this has been intermittently reoccurring, including earlier this morning. She denies headache, dizziness, fatigue, difficulty sleeping, disequilibrium, nausea or vomiting, altered mental status, difficulty speaking, numbness or tingling, or generalized weakness, or other significant associated symptoms. [facility]END[facility] S[facility] TO [facility] Medical History Vertigo Asthma HLD (hyperlipidemia) HTN (hypertension) Surgical History No pertinent past surgical history Family History Mother Heart disease Father Stomach cancer Social History Household Members: None Housing: Apartment Do you presently have visiting nurse or other home services: No Alcohol intake: current Alcohol intake frequency: holidays/special occasions only Comment: pt rings appropriately Patient Tobacco Use Status: Never used Tobacco service: No Current occupational status: retired Current occupation: rt handed Review of Systems Const All systems reviewed & are unremarkable except as noted in HPI and below Neuro Denies Abnormal speech present and Denies confusion Psych Denies confusion Physical Exam Vital Signs: Last Vital Signs Pulse 76 05/23/24 13:35 BP 150/60 H 05/23/24 13:35 Pulse Ox 98 05/23/24 13:35 Oxygen Delivery Method Room Air 05/23/24 13:35 BMI result Body Mass Index 28.4 Const General: cooperative, healthy appearing, comfortable, no acute distress, alert, awake, Physically active and well groomed; No anxious, confusion, diaphoretic, ill appearing, intoxicated appearing, poor hygiene or tired appearing Nutritional Appearance: average body habitus Orientation/consciousness: patient oriented x3 and No confusion Limitations: no limitations HEENT Head: Yes No palpable skull fracture present, Yes abrasion (Small scattered healing well at hairline, left side forehead), No Bertrand's sign, Yes contusion (Left side forehead at hairline), No hematoma, No laceration and No scalp tenderness Eyes General: appearance normal, both eyes and all related structures Pupils: Equal, round and reactive pupils present EOM: No Nystagmus present Resp Effort & Inspection: normal respiratory effort Cardio Rate: regular rate Neuro General: patient oriented x3, gait normal, moves all extremities, CN's II-XI intact bilaterally and No confusion Cranial nerves: Yes Equal, round and reactive pupils present, Yes Normal accommodation reflex present, Yes Normal facial strength present, Yes Midline tongue present and No Nystagmus present Cognition (Neuro): normal cognition Speech: No Abnormal speech present Coordination: No [id number] test normal (Slightly delayed) Psych Appearance: grossly normal Mental Status: mental status grossly normal Speech and movement: Normal speech and movement present Affect: normal affect Attitude: cooperative Thought process: Normal thought process present Insight: Good insight present (Psych) Judgement: Good judgement present (Psych) Assessment & Plan Assessment & Plan (1) Head injury: Code(s): S09.90XA - Unspecified injury of head, initial encounter Qualifiers: Encounter type: initial encounter Qualified Code(s): S09.90XA - Unspecified injury of head, initial encounter Plan Patient is an 84-year-old female comes to the walk-in clinic 5 days after she tripped and fell, striking the left side of her forehead on the cement ground. Patient has history of acute ischemic stroke affecting her left lower extremity, as well as atherosclerotic cardiovascular disease, with an NSTEMI. She takes a baby aspirin every day, and she has not stopped this since she fell. She reports that she had some blurred vision to her left eye after she fell, and this has been intermittently reoccurring. She does have ecchymotic area to her left forehead at her hairline, and some abrasions that are healing well. She is alert and oriented otherwise, very friendly, with appropriate affect and no neuro deficits other than the intermittent vision changes. She has been quite concerned about her blood pressure being elevated, as she is normally controlled on metoprolol and amlodipine, which was recently evaluated 3 months ago by cardiology. Her blood pressure was a little elevated today at 150/60, but improved from the 1 she got this morning in the 160s systolic. We discussed that it is concerning that she is having intermittent vision changes in her left eye associated with hitting her head almost a week ago, and being on a blood thinner. She was amenable to being evaluated at [facility] Emergency Department for further evaluation. She declined ambulance transport, and waited in the office for her daughter to pick her up and transport her. Expect was called in. Coding Level of Care Code Est Pt Level 4 (57970) Diagnoses Injury of head, initial encounter S09.90XA Encounter type: initial encounter
[2024-05-23 13:35] VITALS: BP 150/60; PULSE 76; O2SAT 98; BMI 28.4
== END 2024-05-23 14:43 | disposition home or self-care (01) ==
PROVIDERS: PCP Internal Medicine; Visit Provider Physician Assistant Medical
DX: S09.90XA Unspecified injury of head, initial encounter (principal)

== ENCOUNTER 2024-05-23 15:30 | Emergency (ER) | payer MEDICARE, SELFPAY ==
--- NOTE | ~2024-05-23 | CT_ITS ---
CLINICAL HISTORY: fall head strike CT cervical spine without contrast Comparison: CR/SR - XR CERVICAL SPINE MIN 6V - 12/01/21 11:24 EDT MR/ID - MR CERVICAL SPINE WO CON - 01/05/21 18:[address]/ID - CT ANGIO HEAD NECK - 05/08/20 22:35 EST Findings: Mild multilevel anterolisthesis and retrolisthesis, degenerative. No fracture. Multilevel degenerative change is most prominent at C4/C5 with moderate to severe central spinal canal stenosis. No epidural hematoma. Normal thickness of the prevertebral soft tissues. Mild biapical scarring. Impression: No acute findings. This document has been electronically signed by: Lorelei Bowman MD on 05/23/2024 18:03:18
--- NOTE | ~2024-05-23 | CT_ITS ---
CLINICAL HISTORY: fall, head strike CT head without contrast Comparison: MR/REG - MR HEAD/BRAIN WO CON - 05/09/20 14:[address]/[place] - CT ANGIO HEAD NECK - 05/08/20 22:35 EST Findings: No acute hemorrhage. No extra-axial fluid collection. No hydrocephalus, mass-effect or herniation. Rojas-white differentiation is maintained. There is patchy hypoattenuation of the periventricular and deep white matter, which is most likely the sequela of mild chronic small vessel ischemic disease and is similar to the prior studies. Mild amount of encephalomalacia in the high posterior right frontal lobe in the region of the previously seen infarction on the MR from 05/09/20. No acute orbital pathology. Right scleral banding. No acute soft tissue abnormality. No fracture. The visualized paranasal sinuses are predominantly clear. The mastoid air cells are clear. Impression: No acute findings. This document has been electronically signed by: Lorelei Bowman MD on 05/23/2024 18:07:59
[2024-05-23 15:46] VITALS: BP 185/72; PULSE 72; RESP 17; TEMP 36.6; O2SAT 98; BMI 28.2
--- NOTE | 2024-05-23 15:47 | ED.FALL ---
HPI - Fall General Chief Complaint: Head Injury Stated Complaint: from needs head catscan? Time Seen by Provider: 05/23/24 21:02 Source: patient and family Mode of arrival: ambulatory Limitations: no limitations History of Present Illness ED Provider: Dr. Allyson Mcallister HPI Narrative: Patient comes to the emergency room complaining of high blood pressure. Patient states that she is very compliant with the medication, takes amlodipine 5 mg daily and metoprolol succinate 50 mg. Patient states that for the last few days her blood pressure has been in the 180s. Patient denies headache. In triage patient stated that she had some pressure in the back of the head and left eye blurry vision. She denied this findings when I spoke with the patient. Patient does have history of dementia, but is still able to communicate fairly well. Patient denies chest pain or shortness of breath, denies lower extremity edema. Patient states that 6 days ago, she had a mechanical fall. Patient states that she tripped. Patient only takes aspirin, no blood thinners. Patient has sustained several cuts to the lower extremities. Patient states she is not up-to-date with her Tdap. Related Data Home Medications ?Medication ?Instructions ?Recorded ?Confirmed albuterol sulfate 90 mcg/actuation 2 puff PO QID 05/09/20 02/19/24 aerosol inhaler (ProAir HFA) metoprolol succinate 50 mg 50 mg PO DAILY 05/17/21 02/19/24 tablet,extended release 24 hr meclizine 12.5 mg tablet 12.5 mg PO TID PRN 11/28/22 02/19/24 Previous Rx's ?Medication ?Instructions ?Recorded aspirin 81 mg tablet,delayed 81 mg PO DAILY #30 tabs 05/12/20 release atorvastatin 40 mg tablet 40 mg PO DAILY #30 tabs 05/26/21 diclofenac sodium 1 % topical gel 4 g topical QID PRN pain #100 grams 11/23/22 (Arthritis Pain (diclofenac)) amlodipine 5 mg tablet 5 mg PO DAILY #90 tabs 04/06/24 acetaminophen 650 mg 1,300 mg (2 x 650 mg) PO Q12H PRN 04/08/24 tablet,extended release for pain #360 tabs amlodipine 10 mg tablet 10 mg PO DAILY #30 tabs 05/24/24 Allergies Allergy/AdvReac Type Severity Reaction Status Date / Time amoxicillin [From [facility]] Allergy Severe RASH Verified 05/23/24 15:51 clarithromycin [From PREVPAC] Allergy Severe RASH Verified 05/23/24 15:51 lansoprazole [From PREVPAC] Allergy Severe RASH Verified 05/23/24 15:51 nirmatrelvir [From Paxlovid] Allergy Unknown Hives Verified 05/23/24 15:51 ritonavir [From Paxlovid] Allergy Unknown Hives Verified 05/23/24 15:51 tramadol Allergy Unknown Hives Verified 05/23/24 15:51 Review of Systems Review of Systems: Constitutional : No Weight loss, No Fever, No Chills, No Night Sweats, No Fatigue, No Malaise ENT/Mouth : No Hearing loss, No Ear Pain, No Nasal Congestion, No Sinus Pain, No Hoarseness, No sore throat, No Rhinorrhea, No Swallowing Difficulty Eyes: No Eye Pain, No Swelling, No Redness, No Foreign Body, No Discharge, No Vision Changes Cardiovascular : Complaining of high blood pressure, No Chest Pain, No SOB, No Dyspnea on Exertion, No Orthopnea, No Edema, No Palpitations Respiratory : No Cough, No Sputum, No Wheezing, No Smoke Exposure, No Dyspnea Gastrointestinal : No Nausea, No Vomiting, No Diarrhea, No Constipation, No abdominal Pain, No Hematochezia, No Melena Genitourinary : no irregular bleeding, No Dysuria, No Urinary Frequency, No Hematuria, No Urinary Incontinence, No Urgency, No Flank Pain, No Urinary Flow Changes, No Hesitancy Musculoskeletal : No joint pain, No Myalgias, No Joint Swelling Skin : No Skin Lesions, No rash Neuro : No Weakness, No Numbness, No Paresthesias, No Loss of Consciousness, No Dizziness, complaining of Headache Psych : No Anxiety/Panic, No Depression, No SI/HI/AH/VH, No Social Issues, Heme/Lymph: No Bruising, No Bleeding,No Lymphadenopathy Endocrine : No Polyuria, No Polydipsia, No Temperature Intolerance [facility] Past Medical History Medical History (Updated 05/24/24 @ 00:05 by Allyson Mcallister MD) CVA (cerebral vascular accident) NSTEMI (non-ST elevated myocardial infarction) Vertigo Asthma HLD (hyperlipidemia) HTN (hypertension) Surgical History No pertinent past surgical history Family History Family History Mother Heart disease Father Stomach cancer Social History Social History Household Members: None Housing: Apartment Do you presently have visiting nurse or other home services: No Alcohol intake: current Alcohol intake frequency: holidays/special occasions only Comment: pt rings appropriately Patient Tobacco Use Status: Never used Tobacco Advance Directives: No Advance Directives Information Provided: Yes Do you have a plan to hurt others: No Plan service: No Current occupational status: retired Current occupation: rt handed Physical Exam Vital Signs: Vital Signs: Last Vital Signs Temp 97.7 F 05/23/24 20:57 Pulse 66 05/23/24 23:12 Resp 16 05/23/24 23:12 BP 155/65 H 05/23/24 23:12 Pulse Ox 98 05/23/24 23:12 O2 Del Method Room Air 05/23/24 23:12 BMI result Body Mass Index 28.2 Const: Other: Appearance: Alert. Oriented X3. No acute distress. Eyes: Pupils equal, round and reactive to light. ENT: Pharynx normal. Neck: Normal inspection. Neck supple. No lymph nodes noted. No crepitus CVS: Normal heart rate and rhythm. Pulses normal. Normal S1 and S2 Respiratory: No respiratory distress. Breath sounds normal. No Wheezing. No rales Abdomen: Soft and nontender. No rigidity. No distention. Skin: Skin warm and dry. Normal skin color. Normal skin turgor. Extremities: No lower extremity edema old ecchymosis and scratches to lower extremities from the fall 6 days ago, Neuro: Oriented X 3. No motor deficit. No sensory deficit. Moving all extremities. No slurred speech. CN 2 through 12 grossly intact Psych: calm, cooperative, normal affect Course Course Course Narrative: This is a Rapid Medical Examination (RME) performed by Erich Kovacs PA-C in triage. Full HPI, ROS, assessment and treatment plan per primary provider in the Main ED. 84 yo female here from for eval of elevated BP and fall 6d ago. reports trip and fall 6 days ago where she tripped over the doorway threshold and slammed her head against the door frame. no LOC. not on AC however takes 81mg aspirin daily. she noticed her BP has been elevated over the last few days, prompting her to present to urgent care. patient was sent here for CT head/neck. at present, reports 2/10 discomfort to her posterior head. admits to intermittent blurred vision to the lateral aspect of her left eye. hx CVA in 2019 w/ left sided deficits. +visual banuelos intact. perrla. Plan: basic labs, imaging Medications Administered Discontinued Medications Generic Name Dose Route Start Last Admin Trade Name Myles PRN Reason Stop Dose Admin Amlodipine Besylate 10 mg 05/23/24 22:12 05/23/24 22:25 Amlodipine Besylate 10 Mg Tablet PO 05/23/24 22:13 10 mg ONCE ONE Administration Protocol Diphtheria/Tetanus/Acell Pertussis 0.5 ml 05/23/24 22:12 05/23/24 22:25 Diphth,Pertus(Acell),Tet Adult 0.5 Ml Syringe IM 05/23/24 22:13 0.5 ml .ONCE ONE Administration Medical Decision Making Medical Decision Making [facility] Narrative: CT scan: No obvious abnormality, chronic strokes. 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 Patient receiving 10 mg of amlodipine. Patient received 10 mg of amlodipine, blood pressure 155/65. Patient's dose will be increased, and then she can follow-up with the primary care physician. Differential Diagnosis Differential Diagnoses: The differential diagnosis associated with the presentation includes (Hypertensive urgency, hypertensive emergency) Admission/Observation Consideration of admission/observation: Escalation of care including admission/observation considered (Given patient's elevated blood pressure, observation was considered) Lab Data [facility] Lab Attestation statement: I reviewed the patient's lab results. 05/23/24 16:14 05/23/24 16:14 Labs: Lab Results 05/23/24 Range/Units 16:14 WBC 6.7 (4.8-10.8) X10*3/uL RBC 3.88 L (4.20-5.50) X10*6/uL Hgb 12.5 (12.0-16.0) g/dl Hct 36.1 L (37.0-47.0) % MCV 93.0 (80.0-98.0) fL MCH 32.2 (27.0-33.0) pg MCHC 34.6 (31.0-35.0) g/dl RDW 12.3 (11.0-16.0) % Plt Count 272 (160-400) X10*3/uL MPV 9.3 L (9.4-12.3) fL Immature Gran % (Auto) 0.3 (0.0-0.4) % Neut % (Auto) 65.8 (45-73) % Lymph % (Auto) 21.7 (20-40) % [place] % (Auto) 9.6 (2-11) % Eos % (Auto) 1.8 (0-4) % Baso % (Auto) 0.8 (0-2) % Lymph # (Auto) 1.4 (1.2-4.9) X10*3/uL [place] # (Auto) 0.6 (0.1-1.2) X10*3/uL Eos # (Auto) 0.1 (0.0-0.4) X10*3/uL Baso # (Auto) 0.1 (0.0-0.2) X10*3/uL Abs Immat Gran (auto) 0.02 (0.00-0.03) X10*3/uL Absolute Neuts (auto) 4.4 (2.0-8.3) x10*3/uL Absolute Nucleated RBC 0.000 (0.0-0.012) X10*3/uL Nucleated RBC % (auto) 0.0 (0.0-0.2) /100WBC Sodium 131 L (135-145) mmol/L Potassium 4.3 (3.3-5.1) mmol/L Chloride 98 (96-108) mmol/L Carbon Dioxide 26 (22-29) mmol/L Anion Gap 11 L (12-20) BUN 11 (9-16) mg/dL Creatinine 0.80 (0.5-1.4) mg/dL Estim Creat Clear Calc 61.5 Estimated GFR > 60 Random Glucose 101 (60-115) mg/dL Calcium 9.9 (8.4-10.2) mg/dL Magnesium 2.1 (1.6-2.6) mg/dL Total Bilirubin 0.7 (0.0-1.0) mg/dL AST 24 (5-31) U/L ALT 18 (0-31) U/L Alkaline Phosphatase 77 (39-117) U/L Troponin I High Sens 4.6 (<3.5-17.0) ng/L Total Protein 7.7 (6.5-8.0) g/dL Albumin 4.4 (3.5-5.0) g/dL Independent Interpretation I performed an independent interpretation of an: CT Scan Radiology Impression Discussion of test interpretation with radiology: I have reviewed the radiologist's reading. Critical Care Time Critical Care Time Critical Care Time: Yes Total Critical Care Time: 60 Attestation: I have personally provided critical care time. Time includes review of lab data, radiology results, discussion with consultants, and monitoring for potential decompensation. Intervention performed as documented. Discharge Plan Discharge Clinical Impression: Hypertension Patient Disposition: Home, Self-Care Instructions: Chronic Hypertension (ED) Additional Instructions: Your initial blood pressure was 192 over 98. After 10 mg of amlodipine, your blood pressure improved to 155/65. We will increase your dose of amlodipine at home from 5 mg to 10 mg . You may take 2 tablets of 5 mg together, you will be provided with a prescription for 10 mg tablets as well. Please keep a log of your blood pressures to share with your PCP. Please follow-up with your primary care physician tomorrow. If you have any worsening or new symptoms, please return to the emergency room or call 911 Prescriptions: New amlodipine 10 mg tablet 10 mg PO DAILY Qty: 30 0RF No Action atorvastatin 40 mg tablet 40 mg PO DAILY Qty: 30 0RF amlodipine 5 mg tablet 5 mg PO DAILY Qty: 90 3RF acetaminophen 650 mg tablet extended release 1,300 mg PO Q12H PRN (Reason: for pain) Qty: 360 0RF albuterol sulfate [ProAir HFA] 90 mcg/actuation HFA aerosol inhaler 2 puff PO QID aspirin 81 mg Tablet,Delayed Release (Dr/Ec) 81 mg PO DAILY Qty: 30 0RF metoprolol succinate 50 mg tablet extended release 24 hr 50 mg PO DAILY meclizine 12.5 mg tablet 12.5 mg PO TID PRN diclofenac sodium [Arthritis Pain (diclofenac)] 1 % gel 4 g topical QID PRN (Reason: pain) Qty: 100 1RF Print Language: German
[2024-05-23 16:29] LABS: MANUAL DIFF FLAG NO
[2024-05-23 16:33] LABS: Basophils Absolute Auto 0.1 X10*3/uL (0.0-0.2); Basophils Percent Auto 0.8 % (0-2); Eosinophils Absolute Auto 0.1 X10*3/uL (0.0-0.4); Eosinophils Percent Auto 1.8 % (0-4); Hematocrit 36.1 % (37.0-47.0); Hemoglobin 12.5 g/dl (12.0-16.0); Imm Gran Abs Auto 0.02 X10*3/uL (0.00-0.03); Imm Gran Pct Auto 0.3 % (0.0-0.4); Lymphocytes Absolute Auto 1.4 X10*3/uL (1.2-4.9); Lymphocytes Percent Auto 21.7 % (20-40); Mean Corpuscular HGB Conc 34.6 g/dl (31.0-35.0); Mean Corpuscular Hemoglobin 32.2 pg (27.0-33.0); Mean Platelet Volume 9.3 fL (9.4-12.3); Monocytes Absolute Auto 0.6 X10*3/uL (0.1-1.2); Monocytes Percent Auto 9.6 % (2-11); Neutrophils Absolute Auto 4.4 x10*3/uL (2.0-8.3); Neutrophils Percent Auto 65.8 % (45-73); Platelet Count 272 X10*3/uL (160-400); Red Blood Count 3.88 X10*6/uL (4.20-5.50); Red Cell Distribution Width 12.3 % (11.0-16.0); White Blood Count 6.7 X10*3/uL (4.8-10.8)
[2024-05-23 17:06] LABS: Alanine Aminotransferase 18 U/L (0-31); Albumin Level 4.4 g/dL (3.5-5.0); Alkaline Phosphatase 77 U/L (39-117); Anion Gap 11 (12-20); Aspartate Amino Transferase 24 U/L (5-31); Bilirubin Total 0.7 mg/dL (0.0-1.0); Blood Urea Nitrogen 11 mg/dL (9-16); Calcium 9.9 mg/dL (8.4-10.2); Carbon Dioxide 26 mmol/L (22-29); Chloride 98 mmol/L (96-108); Creatinine Clr Calc Pharmacy 61.5; Estimated Glomerular Filt Rate > 60; Glucose Random 101 mg/dL (60-115); Magnesium 2.1 mg/dL (1.6-2.6); Potassium 4.3 mmol/L (3.3-5.1); Sodium 131 mmol/L (135-145); Total Protein 7.7 g/dL (6.5-8.0)
[2024-05-23 20:57] VITALS: BP 192/98; PULSE 80; RESP 16; TEMP 36.5; O2SAT 98
[2024-05-23 21:54] VITALS: BP 186/83; PULSE 75; RESP 16; O2SAT 97
--- NOTE | 2024-05-23 21:58 | PC.NURSE ---
Confirmed w/ patient she takes her own meds everyday, took her bp meds today. Denies pain, endorses neck pain intermittently.
--- NOTE | 2024-05-23 22:06 | ECG_ITS ---
Test Reason : HYPERTENSION Blood Pressure : */* mmHG Vent. Rate : 70 BPM Atrial Rate : 70 BPM P-R Int : 176 ms QRS Dur : 88 ms QT Int : 390 ms P-R-T Axes : 44 10 30 degrees QTcB Int : 421 ms Normal sinus rhythm Low voltage QRS Cannot rule out Anterior infarct (cited on or before 09-May-2020) Abnormal ECG When compared with ECG of 09-May-2020 01:32, Premature supraventricular complexes are no longer Present Referred By: Allyson Mcallister Electronically Signed By: LYUBOV GRANT
[2024-05-23] MEDS: Diphth,Pertus(ACell),Tet Adult 0.5 ML SYRINGE IM (22:25)
[2024-05-23] MEDS: amLODIPine Besylate 10 MG TABLET PO (22:25)
[2024-05-23 22:41] LABS: Troponin-I High Sensitivity 4.6 ng/L (<3.5-17.0)
[2024-05-23 23:12] VITALS: BP 155/65; PULSE 66; RESP 16; O2SAT 98
[2024-05-24 00:07] VITALS: BP 154/60; PULSE 66; RESP 16; TEMP 36.4; O2SAT 97
[2024-05-24 00:28] VITALS: BP 154/60; PULSE 66; RESP 16; TEMP 36.4; O2SAT 97
== END 2024-05-24 00:28 | disposition home or self-care (01) ==
PROVIDERS: Physician Assistant Medical; Emergency Provider Emergency Medicine; PCP Internal Medicine
DX: I10 Essential (primary) hypertension (principal); R51.9 Headache, unspecified; E78.5 Hyperlipidemia, unspecified; J45.909 Unspecified asthma, uncomplicated; Z91.81 History of falling; Z86.73 Personal history of transient ischemic attack (TIA), and cerebral infarction without residual deficits; Z79.82 Long term (current) use of aspirin; Z23 Encounter for immunization; S80.812A Abrasion, left lower leg, initial encounter; S80.811A Abrasion, right lower leg, initial encounter; W01.198A Fall on same level from slipping, tripping and stumbling with subsequent striking against other object, initial encounter; Y93.9 Activity, unspecified; Y92.9 Unspecified place or not applicable; Y99.9 Unspecified external cause status
CPT/HCPCS: 36415; 70450; 72125; 80053; 83735; 84484; 85025; 90471; 90715; 93005; 99212; 99284

== ENCOUNTER → 2024-05-23 15:52 | Outpatient (BNV) | payer MEDICARE, SELFPAY | PROVIDERS: PCP Internal Medicine; Visit Provider Radiology Diagnostic Radiology | DX: S09.90XA Unspecified injury of head, initial encounter (principal) | CPT/HCPCS: 70450; 72125 ==

== ENCOUNTER → 2024-05-23 22:06 | Outpatient (BNV) | payer MEDICARE, SELFPAY | PROVIDERS: Emergency Provider Emergency Medicine; PCP Internal Medicine; Visit Provider Internal Medicine | DX: R94.31 Abnormal electrocardiogram [ECG] [EKG] (principal) | CPT/HCPCS: 93010 ==

== ENCOUNTER 2024-07-09 14:15 | Outpatient (AMB) | payer MEDICARE, SELFPAY ==
--- NOTE | 2024-07-09 14:53 | AM.OFFWIN_ITS ---
Intake Vital Signs 07/09/24 14:54 Weight 190 lb BP 114/70 Blood Pressure Location Rt brachial Position Sitting Pulse 78 Pulse Source Pulse Oximeter Temp 98.1 F Temp Source Oral Pulse Oximetry (%) 98 Oxygen Delivery Method Room Air Intake Visit Reasons: EP flush ears Intake Note: Patient here for dizziness and left ear discomfort. Patient Tobacco Use Status: Never used Tobacco Allergies amoxicillin [From PREVPAC] Allergy (Severe, Verified 07/09/24 14:54) RASH clarithromycin [From PREVPAC] Allergy (Severe, Verified 07/09/24 14:54) RASH lansoprazole [From PREVPAC] Allergy (Severe, Verified 07/09/24 14:54) RASH nirmatrelvir [From Paxlovid] Allergy (Unknown, Verified 07/09/24 14:54) Hives ritonavir [From Paxlovid] Allergy (Unknown, Verified 07/09/24 14:54) Hives tramadol Allergy (Unknown, Verified 07/09/24 14:54) Hives Do you need a note to return to daycare/school/sports/work: No HPI HPI Comments History of Present Illness Details 84 y/o female patient who presents to [facility] walk in clinic with c/o B/L ear blockage for awhile now. [facility] Medical History (Updated 07/09/24 @ 15:19 by Nori Huang NP) Impacted cerumen of both ears CVA (cerebral vascular accident) NSTEMI (non-ST elevated myocardial infarction) Vertigo Asthma HLD (hyperlipidemia) HTN (hypertension) Surgical History No pertinent past surgical history Family History Mother Heart disease Father Stomach cancer Social History Household Members: None Housing: Apartment Do you presently have visiting nurse or other home services: No Alcohol intake: current Alcohol intake frequency: holidays/special occasions only Comment: pt rings appropriately Patient Tobacco Use Status: Never used Tobacco service: No Current occupational status: retired Current occupation: rt handed Review of Systems Const All systems reviewed & are unremarkable except as noted in HPI and below Physical Exam Vital Signs: Last Vital Signs Temp 98.1 F 07/09/24 14:54 Pulse 78 07/09/24 14:54 BP 114/70 07/09/24 14:54 Pulse Ox 98 07/09/24 14:54 Oxygen Delivery Method Room Air 07/09/24 14:54 Const General: cooperative and no acute distress Nutritional Appearance: overweight Orientation/consciousness: patient oriented x3 HEENT Head: Yes normocephalic Ears: external ears normal and TM abnormal obstructed by cerumen bilateral General nose exam: Normal external nose present Mouth: moist mucous membranes Neuro General: patient oriented x3, gait normal and moves all extremities Psych Speech and movement: Normal speech and movement present Office Procedures Cerumen Removal From which ear canal was the cerumen removed: bilateral Removal: irrigation Notes: patient tolerated procedure well [id number] Irrigation/Lavage Assessment & Plan Assessment & Plan (1) Impacted cerumen of both ears: Code(s): H61.23 - Impacted cerumen, bilateral Plan: B/L Ear Lavage performed Patient tolerated the procedure well. TM clean and intact. Coding Level of Care Code Est Pt Level 4 (85318) Diagnoses Impacted cerumen of both ears H61.23 CPT Codes Office Procedure - CPT: 71356-Muy Irrigation/Lavage ([id number]) Time Spent (min) 20
[2024-07-09 14:54] VITALS: BP 114/70; PULSE 78; TEMP 36.7; O2SAT 98
== END 2024-07-09 15:28 | disposition home or self-care (01) ==
PROVIDERS: PCP Internal Medicine; Visit Provider Nurse Practitioner Family
DX: H61.23 Impacted cerumen, bilateral (principal)

== ENCOUNTER → 2024-07-09 14:15 | Outpatient (BNVA) | payer MEDICARE, SELFPAY | PROVIDERS: PCP Internal Medicine | DX: H61.23 Impacted cerumen, bilateral (principal) | CPT/HCPCS: 69209; 99212 ==

== ENCOUNTER 2024-08-20 14:51 | Outpatient (AMB) | payer MEDICARE, SELFPAY ==
--- NOTE | 2024-08-20 14:54 | A.OFFVIS_ITS ---
Vital Signs 08/20/24 14:58 Height 5 ft 9 in Weight 190 lb 2 oz BMI 28.1 BP 157/71 H Blood Pressure Location Lt brachial Position Sitting Pulse 52 Pulse Source Pulse Oximeter Pulse Oximetry (%) 98 Oxygen Delivery Method Room Air Intake Visit Reasons: Knee Pain Intake Note: Pain today 10/20 Supervisor Of Guidance And Testing Required: No Accompanied by: Self / Same As Patient Allergies amoxicillin [From PREVPAC] Allergy (Severe, Verified 08/20/24 14:58) RASH clarithromycin [From PREVPAC] Allergy (Severe, Verified 08/20/24 14:58) RASH lansoprazole [From PREVPAC] Allergy (Severe, Verified 08/20/24 14:58) RASH nirmatrelvir [From Paxlovid] Allergy (Unknown, Verified 08/20/24 14:58) Hives ritonavir [From Paxlovid] Allergy (Unknown, Verified 08/20/24 14:58) Hives tramadol Allergy (Unknown, Verified 08/20/24 14:58) Hives HPI Comments Details: The patient is an 84-year-old female presenting with right knee pain management. Previously, she received Synvisc 1 gel injections in both knees in February 2023 and cortisone injections on the right knee in January 2024 and right steroid GTB in February 2024 with good relief, lasting over 6 months. The pain persists primarily in the right knee, particularly at the lateral and anterior aspects, with increased intensity upon walking, squatting, climbing, and during cold or damp weather. She prefers cortisone injections over gel, as they're more effective in her experience. In May 2024, she sustained a head and knees injuries from a fall and was evaluated in our ER with no acute findings on head/cervical CT scans. The patient lives independently and does not regularly use assistive devices, despite possessing a cane. She mentions knee pain that worsens in cold and damp conditions, which affects her sleep patterns. Despite these challenges, she reports managing her daily activities fairly well. She has been taking Tylenol and heat/ice packs with continued symptoms. Denies any recent cough, cold, infection, fever, bladder or bowel incontinence or saddle anesthesia, any signi ficant changes in her medical history, medications or recent hospitalizations. Past Procedures: 02/19/24: Right therapeutic GTB injection-100% pain relief for 6 months 01/31/24: Right knee cortisone injection- 90% pain relief for 5-6 months 02/27/23: Bilateral knee intra-articular hyaluronic acid supplement (Synvisc One) injections-100% pain relief for 8 months PRIOR: Patient is a pleasant 82 years old female with chronic bilateral knee pain, presents today for initial evaluation of bilateral anterior knee pain. Denies any recent trauma, injury or falls. Her most recent cortisone injections were on 09/27/22 with temporary partial symptom relief. Her right knee is worse than left knee. Pain is worst with walking or climbing stairs. She also reports numbness over anterior knee with intermittent low back and hip pain. She notes that right knee pain is her most concerning pain generator at this time. Patient reports pain affects her daily activities, functions, mood, sleep, and social interactions. She continues to stay active, exercises daily and goes to [facility] 2 days a week by walking across the pool. Denies previous knee surgery or gel injections. She is interested in trying Synvisc injections prior interventional treatments, including Sprint PNS trial or genicular RFA. Denies any fever, weakness, numbness, tingling, bladder or bowel incontinence or saddle anesthesia. Location Bilateral knee pain Duration Chronic bilateral knee pain > 10 years Characteristics of symptom or complaint Aching, hot/ burning, stabbing, sharp, tingling, shooting, numb, cramping Aggravating or associated factors Bending, walking up and down stairs, getting up from sitting Relieving factors Tylenol Treatment Cortisone injections since 2013, last on 09/27/22-temporary results [facility] Medical History Impacted cerumen of both ears CVA (cerebral vascular accident) NSTEMI (non-ST elevated myocardial infarction) Vertigo Asthma HLD (hyperlipidemia) HTN (hypertension) Surgical History No pertinent past surgical history Family History Mother Heart disease Father Stomach cancer Social History Household Members: None Housing: Apartment Do you presently have visiting nurse or other home services: No Alcohol intake: current Alcohol intake frequency: holidays/special occasions only Comment: pt rings appropriately Patient Tobacco Use Status: Never used Tobacco service: No Current occupational status: retired Current occupation: rt handed Review of Systems Const All systems reviewed & are unremarkable except as noted in HPI and below Physical Exam Vital Signs: Last Vital Signs Pulse 52 08/20/24 14:58 BP 157/71 H 08/20/24 14:58 Pulse Ox 98 08/20/24 14:58 Oxygen Delivery Method Room Air 08/20/24 14:58 BMI result Body Mass Index 28.1 General: Appears afebrile. Alert and oriented. Mood and affect appropriate. Follows and participates in conversation appropriately. Respiratory effort is unlabored. No cough. Able to transition from sit to stand unassisted. Extrem Other: Bilateral knee localized tenderness in the projection of lateral and anterior aspects, right worse than left. No swelling, no effusion, no erythema. General: Yes capillary refill normal, Yes no clubbing, cyanosis or edema and Yes no calf tenderness Assessment & Plan Assessment & Plan (1) Osteoarthritis of right knee: Code(s): M17.11 - Unilateral primary osteoarthritis, right knee Category: Medical Qualifiers: Osteoarthritis type: primary Qualified Code(s): M17.11 - Unilateral primary osteoarthritis, right knee (2) Bilateral knee pain: Code(s): M25.561 - Pain in right knee; M25.562 - Pain in left knee Category: Medical Qualifiers: Chronicity: chronic Qualified Code(s): M25.561 - Pain in right knee; M25.562 - Pain in left knee; G89.29 - Other chronic pain Plan Schedule Right knee intra-articular steroid injection with local and fluoroscopy/US for chronic knee pain due to OA. The risks, consequences, alternatives, and benefits of various treatment options were reviewed again with the patient in great detail, including conservative management, injections and procedures. Continue Tylenol Arthritis, encouraged to alternate ice and heat therapy, rest and elevation. All questions were answered and the patient is in agreement with the treatment plan. Follow up after injections and sooner as needed. Patient was informed and verbally consented to the use of an ambient scribe for clinic note documentation during this visit. Patient Instructions: We discussed the patient's preferences and experiences with prior cortisone and gel injections. Given the ongoing pain in her right knee and her expressed preference for cortisone due to perceived higher efficacy, I proposed a fluoroscopy or US-guided cortisone injection, pending insurance authorization. I explained the need to space injections if eventually treating both knees to ensure maximum benefit. The discussion confirmed the plan aligns with her experiences and expected outcomes, with contingency on obtaining insurance approval. - Pending insurance approval for cortisone injection scheduling. - Notify the office if knee pain worsens or changes significantly before the scheduled cortisone injection. - Maintain current daily activities as tolerated, using a cane as necessary. - Continue established lifestyle routines and monitor knee pain, especially in cold or damp conditions. - Notify office if worsening pain or new symptoms. Coding Level of Care Code Est Pt Level 4 (33947) Complex EM visit Add On G2211 Diagnoses Primary osteoarthritis of right knee M17.11 Osteoarthritis type: primary Chronic pain of both knees M25.561; M25.562; G89.29 Chronicity: chronic
[2024-08-20 14:58] VITALS: BP 157/71; PULSE 52; O2SAT 98; BMI 28.1
== END 2024-08-20 15:12 | disposition home or self-care (01) ==
LOC: HO.PMC 14:52
PROVIDERS: Visit Provider Nurse Practitioner Family
DX: M17.11 Unilateral primary osteoarthritis, right knee (principal); M25.561 Pain in right knee; M25.562 Pain in left knee; G89.29 Other chronic pain
CPT/HCPCS: 99214; G2211

== ENCOUNTER → 2024-08-20 14:51 | Outpatient (BNVA) | payer MEDICARE, SELFPAY | PROVIDERS: Visit Provider Nurse Practitioner Family | DX: M17.11 Unilateral primary osteoarthritis, right knee (principal); M25.561 Pain in right knee; M25.562 Pain in left knee; G89.29 Other chronic pain | CPT/HCPCS: 99212 ==

== ENCOUNTER 2024-08-26 10:24 | Outpatient (AMB) | payer MEDICARE, SELFPAY ==
--- NOTE | 2024-08-26 10:31 | MHC.OFFVIS ---
Vital Signs 08/26/24 10:32 Height 5 ft 9 in Weight 190 lb BMI 28.1 BP 146/62 H Blood Pressure Location Lt brachial Position Sitting Respiration 16 Pulse 61 Pulse Source Pulse Oximeter Pulse Oximetry (%) 97 Oxygen Delivery Method Room Air Intake Visit Reasons: Right Knee Injection Hand Drawer In Required: No Analysis Reporting Developer: Analysis Reporting Developer Present Accompanied by: Tono Lorenzana Allergies amoxicillin [From PREVPAC] Allergy (Severe, Verified 08/26/24 10:33) RASH clarithromycin [From PREVPAC] Allergy (Severe, Verified 08/26/24 10:33) RASH lansoprazole [From PREVPAC] Allergy (Severe, Verified 08/26/24 10:33) RASH nirmatrelvir [From Paxlovid] Allergy (Unknown, Verified 08/26/24 10:33) Hives ritonavir [From Paxlovid] Allergy (Unknown, Verified 08/26/24 10:33) Hives tramadol Allergy (Unknown, Verified 08/26/24 10:33) Hives Medication List - Last Reconciled 08/26/24 by Renetta López LPN acetaminophen ER 1,300 mg (2 x 650 mg) PO Q12H PRN albuterol sulfate 90 mcg/actuation (ProAir HFA) 2 puffs PO QID amlodipine 10 mg PO DAILY amlodipine 5 mg PO DAILY aspirin 81 mg PO DAILY atorvastatin 40 mg PO DAILY diclofenac sodium 1% (Arthritis Pain (diclofenac)) 4 grams topical QID PRN meclizine 12.5 mg PO TID PRN metoprolol succinate ER 50 mg PO DAILY HPI HPI Right Knee Injection: Details: History of Present Illness The patient is an 84-year-old female presenting with osteoarthritis of the right knee, leading to recurrent pain and instability. The patient recalls past interventions including previous joint injections that provided temporary relief. Despite some alleviation, she reports periodic shooting pain and instability episodes in the knee, occasionally causing buckling. The patient has explored various management strategies, like using heat therapy, and has recently increased her physical activity through dixon walking. A brace is contemplated to provide additional joint stability during more strenuous activities. Pain Description - Onset: Chronic with exacerbations - Quality and Character: Shooting pain - Primary Location: Right knee - Aggravating Factors: Increased physical activity, improper joint landing - Relieving Factors: Past injections, heating pads (used cautiously) - Interference with Activities: Causes occasional buckling; affects stability Procedure - Musculoskeletal- Intra-articular injection performed on the right knee; landmark guided. Informed consent obtained; site prepped with Cloraprep; 25g needle used to inject Kenalog 40mg mixed 2 ml ropivacaine 0.25%; procedure tolerated well. Pain Management - Affect: Occasional instability, reduced physical activity - Analgesia: Previously successful knee injections - Adverse Effects: Risk of skin orellana from heating pads - Activities of Daily Living: Increased difficulty with walking; instability concerns during physical activity - Aberrant Drug Related Behaviors: None reported PFSH Medical History Impacted cerumen of both ears CVA (cerebral vascular accident) NSTEMI (non-ST elevated myocardial infarction) Vertigo Asthma HLD (hyperlipidemia) HTN (hypertension) Surgical History No pertinent past surgical history Family History Mother Heart disease Father Stomach cancer Social History Household Members: None Housing: Apartment Do you presently have visiting nurse or other home services: No Alcohol intake: current Alcohol intake frequency: holidays/special occasions only Comment: pt rings appropriately Patient Tobacco Use Status: Never used Tobacco service: No Current occupational status: retired Current occupation: rt handed Physical Exam Vital Signs: Last Vital Signs Pulse 61 08/26/24 10:32 Resp 16 08/26/24 10:32 BP 146/62 H 08/26/24 10:32 Pulse Ox 97 08/26/24 10:32 Oxygen Delivery Method Room Air 08/26/24 10:32 BMI result Body Mass Index 28.1 Assessment & Plan Assessment & Plan (1) Bilateral knee pain: Code(s): M25.561 - Pain in right knee; M25.562 - Pain in left knee Category: Medical Qualifiers: Chronicity: chronic Qualified Code(s): M25.561 - Pain in right knee; M25.562 - Pain in left knee; G89.29 - Other chronic pain Plan Plan During the visit, I administered an intra-articular injection into the right knee to help alleviate the patient's osteoarthritis-related pain and improve joint stability. The procedure proceeded without complications and the patient tolerated it well. I suggested using a knee brace during increased physical activities to aid with stability. Follow-up will be based on the patient's progress and symptomatology. Patient was informed and verbally consented to the use of an ambient scribe for clinic note documentation during this visit. Discussion Notes I discussed with the patient the benefits of the right knee injection in terms of reducing pain and improving functionality. I explained the rationale behind my choice of injection, including the use of Kenalog and ropivacaine for effectively managing inflammation and pain. I clarified the procedure's potential risks, such as infection or reaction, and noted the importance of monitoring for any adverse effects. We also discussed future use of knee braces for added stability and reiterated post-procedure care instructions, emphasizing the importance of applying braces during increased physical activities. Patient Instructions - Monitor knee stability and pain levels. - Use a knee brace during extended physical activities to enhance joint stability. - Be cautious with heating pads to avoid skin orellana. - Follow up as needed for further evaluation or additional injections. - Report any significant changes in pain intensity or joint function. Coding Level of Care Code Procedure Only Diagnoses Chronic pain of both knees M25.561; M25.562; G89.29 Chronicity: chronic
[2024-08-26 10:32] VITALS: BP 146/62; PULSE 61; RESP 16; O2SAT 97; BMI 28.1
== END 2024-08-26 10:53 | disposition home or self-care (01) ==
PROVIDERS: Visit Provider Internal Medicine
DX: M25.561 Pain in right knee (principal); G89.29 Other chronic pain
CPT/HCPCS: 20610

== ENCOUNTER → 2024-08-26 10:24 | Outpatient (BNVA) | payer MEDICARE, SELFPAY | PROVIDERS: Visit Provider Internal Medicine | DX: M25.561 Pain in right knee (principal); M25.562 Pain in left knee; G89.29 Other chronic pain | CPT/HCPCS: 20610 ==

== ENCOUNTER 2024-08-28 10:53 | Outpatient (AMB) | payer MEDICARE, SELFPAY ==
--- NOTE | 2024-08-28 10:53 | A.OFFVIS_ITS ---
Intake Visit Reasons: FU on allergic reaction/ok per Tono Allergies amoxicillin [From PREVPAC] Allergy (Severe, Verified 08/26/24 10:33) RASH clarithromycin [From PREVPAC] Allergy (Severe, Verified 08/26/24 10:33) RASH lansoprazole [From PREVPAC] Allergy (Severe, Verified 08/26/24 10:33) RASH nirmatrelvir [From Paxlovid] Allergy (Unknown, Verified 08/26/24 10:33) Hives ritonavir [From Paxlovid] Allergy (Unknown, Verified 08/26/24 10:33) Hives tramadol Allergy (Unknown, Verified 08/26/24 10:33) Hives HPI HPI FU on allergic reaction/ok per Tono: Details: History of Present Illness The patient is an 84-year-old female presenting with a follow-up for a rash following a steroid injection. Two days ago, after receiving the injection in her knee, she noted a rash on her face and experienced numbness in her arms. The numbness resolved within 24 hours, and there has been improvement in the rash. She has previously tolerated cortisone injections without incident. There have been no changes to her medication list. Pain Description - Rash developed on the face on the same day as the steroid injection - Numbness in arms occurred concurrently with the rash - Numbness resolved after 24 hours - Rash currently improving Pain Management - Affect: Currently reassured and exhibits understanding of the situation - Analgesia: No analgesics mentioned specifically - Adverse Effects: Rash following steroid injection - Activities of Daily Living: Knee feels better; no mention of limitations - Aberrant Drug Related Behaviors: None reported [facility] Medical History Impacted cerumen of both ears CVA (cerebral vascular accident) NSTEMI (non-ST elevated myocardial infarction) Vertigo Asthma HLD (hyperlipidemia) HTN (hypertension) Surgical History No pertinent past surgical history Family History Mother Heart disease Father Stomach cancer Social History Household Members: None Housing: Apartment Do you presently have visiting nurse or other home services: No Alcohol intake: current Alcohol intake frequency: holidays/special occasions only Comment: pt rings appropriately Patient Tobacco Use Status: Never used Tobacco service: No Current occupational status: retired Current occupation: rt handed Telehealth Telehealth Telehealth Platform: Telephone Location of provider rendering services: practice address Location of patient: address on file Patient Identification confirmed using: Name, : Yes Telehealth method: voice only Patient verbally consented to treatment: Yes Patient verbally consented to billing insurance company: Yes Patient informed of any privacy concerns related to visit: Yes Minutes spent on Phone/Video with Pt.: 1 Assessment & Plan Assessment & Plan (1) Bilateral knee pain: Code(s): M25.561 - Pain in right knee; M25.562 - Pain in left knee Category: Medical Qualifiers: Chronicity: chronic Qualified Code(s): M25.561 - Pain in right knee; M25.562 - Pain in left knee; G89.29 - Other chronic pain Plan Plan - Exercise caution with future steroid injections - Consider using a lower dosage for future procedures - Patient to follow up as needed Patient was informed and verbally consented to the use of an ambient scribe for clinic note documentation during this visit. Discussion Notes I discussed with the patient the likely cause of the rash being an adverse reaction to the steroid injection she received. Given her previous tolerance to steroid injections without side effects, we deliberated on the possible need to use a lower dosage in future injections to minimize risk. I reassured her since the rash is resolving, and her knee is feeling better. The patient expressed understanding of the plan and is comfortable with the proposed management approach. Follow-up will be arranged as needed if her symptoms recur or if there are any concerns. Patient Instructions - Monitor the rash and numbness for changes - Avoid further steroid injections without consultation - Follow up if symptoms recur or worsen - Consider consulting about lower dosage if future injections are needed Coding Level of Care Code Tele Est Pt Level 2 (00179) Diagnoses Chronic pain of both knees M25.561; M25.562; G89.29 Chronicity: chronic
== END 2024-08-28 14:17 | disposition home or self-care (01) ==
LOC: HO.PMC 10:53
PROVIDERS: Visit Provider Internal Medicine
DX: M25.561 Pain in right knee (principal); M25.562 Pain in left knee; G89.29 Other chronic pain
CPT/HCPCS: 99212

== ENCOUNTER → 2024-08-28 10:53 | Outpatient (BNVA) | payer MEDICARE, SELFPAY | PROVIDERS: Visit Provider Internal Medicine | DX: Z13.89 Encounter for screening for other disorder (principal) ==

== ENCOUNTER 2024-10-15 13:12 | Outpatient (AMB) | payer MEDICARE, SELFPAY ==
[2024-10-15 13:15] VITALS: BP 138/72; PULSE 63; TEMP 36.6; O2SAT 98; BMI 28.5
--- NOTE | 2024-10-15 13:15 | MHC.PC.OV ---
Vital Signs 10/15/24 13:15 Height 5 ft 9 in Weight 193 lb BMI 28.5 BP 138/72 Blood Pressure Location Lt brachial Position Sitting Pulse 63 Pulse Source Pulse Oximeter Temp 97.8 F Temp Source Axillary Pulse Oximetry (%) 98 Oxygen Delivery Method Room Air Intake Visit Reasons: Routine Manager Developmental Required: No Accompanied by: Self / Same As Patient Allergies amoxicillin [From PREVPAC] Allergy (Severe, Verified 10/15/24 13:15) RASH clarithromycin [From PREVPAC] Allergy (Severe, Verified 10/15/24 13:15) RASH lansoprazole [From PREVPAC] Allergy (Severe, Verified 10/15/24 13:15) RASH nirmatrelvir [From Paxlovid] Allergy (Unknown, Verified 10/15/24 13:15) Hives ritonavir [From Paxlovid] Allergy (Unknown, Verified 10/15/24 13:15) Hives tramadol Allergy (Unknown, Verified 10/15/24 13:15) Hives Tobacco use date assessed: 10/15/24 Fall risk assessment: 1 Fall in past year Last assessed Fall Risk: 10/15/24 Dental Screening Dental Screen Date: 10/15/24 Did you have a dental visit in the last 12 months?: Yes Did you have a dental problem in the last 6 months where you did not have access to dental care?: No HPI HPI Comments History of Present Illness Details 84 year old female with a past medical history of CAD s/p NSTEMI 2019, hypertension, hyperlipidemia, CVA, asthma, vertigo, chacha, cervical DDD presenting for follow up CV: on amlodipine, atorvastatin, metoprolol. 138/72. Denies chest pain, shortness of breath. Follows with [facility] cardiology. upcoming visit. MSK: Currently low back is most bothersome. Just taking tylenol OTC Sees orthopedics. History of right knee and hip pain Follows with dermatology- CARLOS Faizan 10/2023-next week scheduled ROS see HPI PHYSICAL EXAM: GENERAL: Alert and oriented x 3. NAD EYES: EOMI. Anicteric. HENT: Moist mucous membranes. No scleral icterus. No cervical lymphadenopathy. LUNGS: Clear to auscultation bilaterally. CARDIOVASCULAR: Regular rate and rhythm. No murmur. No JVD. ABDOMEN: Soft, non-tender +bs EXTREMITIES: No edema. Non-tender. SKIN: No rashes or lesions. Warm. NEUROLOGIC: No focal neurological deficits. CN II-XII grossly intact PSYCHIATRIC: Cooperative. Appropriate mood and affect FORMERLY [facility], [facility]–1983 Medical History Impacted cerumen of both ears CVA (cerebral vascular accident) NSTEMI (non-ST elevated myocardial infarction) Vertigo Asthma HLD (hyperlipidemia) HTN (hypertension) Surgical History History of colonoscopy (~03/27/13) No pertinent past surgical history Family History Mother Heart disease Father Stomach cancer Social History Household Members: None Housing: Apartment Do you presently have visiting nurse or other home services: No Alcohol intake: current Alcohol intake frequency: holidays/special occasions only Comment: pt rings appropriately Patient Tobacco Use Status: Former Tobacco user e-Cigarette/Vaping Use: Former Use service: No Current occupational status: retired Current occupation: rt handed Cognitive needs: No Hearing needs: No Vision needs: Yes (reading glasses) Questionnaire PHQ-9 Over the last 2 weeks, how often have you been bothered by any of the following problems? 1. Little interest or pleasure in doing things: not at all 2. Feeling down, depressed, or hopeless: not at all 3. Trouble falling or staying asleep, or sleeping too much: not at all 4. Feeling tired or having little energy: not at all 5. Poor appetite or overeating: not at all 6. Feeling bad about yourself - or that you are a failure or have let yourself or your family down: not at all 7. Trouble concentrating on things, such as reading the newspaper or watching television: not at all 8. Moving or speaking so slowly that other people could have noticed. Or the opposite - being so fidgety or restless that you have been moving around a lot more than usual: not at all 9. Thoughts that you would be better off or of hurting yourself in some way: not at all Total score: 0 Depression Screening Interpretation: Negative Depression Screening Done: Yes 25642 - PHQ-9 Billing: Yes Source: Developed by Drs. Aidan Alvarez, Ale Alfredo, Guzman Iglesias and colleagues, with an educational tomasz from [employer]. Thrive Questionnaire Date Thrive assessed: 10/15/24 I am a: Patient Within the past 12 months, did the food you bought not last and you didn't have the money to get more?: Never true Within the past 12 months, did you worry whether your food would run out before you got money to buy more?: Never true Do you have trouble paying for medicines?: No Do you have trouble getting transportation to medical appointments?: No Do you have trouble paying your heating and electricity bill?: No Do you have trouble taking care of your child, family member or friend?: No Do you have trouble with day-to-day activities such as bathing, preparing meals, shopping, managing finances, etc.?: No Are you currently unemployed and looking for a job?: No Are you interested in more education?: No THRIVE Score: 0 AUDIT C Alcohol Use Questionnaire (AUDIT-C) 1. How often do you have a drink containing alcohol?: Never 3. How often do you have six or more drinks on one occasion?: Never Total Score: 0 HOA-7 AMB Questionnaire HOA-7 Date HOA - 7 assessed: 10/15/24 Feeling nervous, anxious, or on edge: 0 = Not at all Not being able to stop or control worryin = Not at all Worrying too much about different things: 0 = Not at all Trouble relaxin = Not at all Being so restless that it is hard to sit still: 0 = Not at all Becoming easily annoyed or irritable: 0 = Not at all Feeling afraid as if something awful might happen: 0 = Not at all Total HOA-7 score (0-4 normal; 5-9 mild; 10-14 moderate; 15-21 severe): 0 Source: Developed by Drs. Aidan Alvarez, Gu[place]man [place] and colleagues, with an educational tomasz from [employer]. Physical exam (Primary Care) Vital Signs: Last Vital Signs Temp 97.8 F 10/15/24 13:15 Pulse 63 10/15/24 13:15 BP 138/72 10/15/24 13:15 Pulse Ox 98 10/15/24 13:15 Oxygen Delivery Method Room Air 10/15/24 13:15 BMI result Body Mass Index 28.5 Tobacco/Smoking Status: Tobacco use Status Tobacco use date assessed 10/15/24 10/15/24 13:16 Patient Tobacco Use Status Never used Tobacco 10/15/24 13:16 e-Cigarette/Vaping Use Never Used 10/15/24 13:16 PHQ-9: PHQ-9 Score PHQ-9: Total score 0 10/15/24 13:16 Depression Screening Interpretation: Negative Thrive Assessment: Date of Thrive Assessment Date Thrive assessed 10/15/24 10/15/24 13:16 Coding Level of Care Code New Pt Level 4 (77221) Complex EM visit Add On G2211 Diagnoses Lumbar spondylosis M47.816 Coronary artery disease involving [place] coronary artery of [place] heart, unspecified whether angina present I25.10 Coronary Disease-Associated Artery/Lesion type: [place] artery [place] vs. transplanted heart: [place] heart Associated angina: unspecified whether angina present Additional Codes PHQ-9 - 25153 - PHQ-9 Billing: Yes ([id number]) Assessment & Plan Assessment & Plan (1) Lumbar spondylosis: Code(s): M47.816 - Spondylosis without myelopathy or radiculopathy, lumbar region Category: Medical (2) CAD (coronary artery disease): Code(s): I25.10 - Atherosclerotic heart disease of [place] coronary artery without angina pectoris Category: Medical Qualifiers: Coronary Disease-Associated Artery/Lesion type: [place] artery [place] vs. transplanted heart: [place] heart Associated angina: unspecified whether angina present Qualified Code(s): I25.10 - Atherosclerotic heart disease of [place] coronary artery without angina pectoris Plan 84 year old female to establish care Past medical, surgical, social reviewed HTN-adequate control. Seeing cardiology Low back pain-offered trial of baclofen gabapentin tramadol. She declines at this time. Continue ortho follow up Mammo ordered and scheduled Orders: Orders Complete Blood Count Auto Diff Today E78.5 - Hyperlipidemia, unspecified, I10 - Essential (primary) hypertension, I21.4 - Non-ST elevation (NSTEMI) myocardial infarction, Z13.0 - Encounter for screening for diseases of the blood and blood-forming organs and certain disorders involving the immune mechanism MM screening mammo BI Today Z12.31 - Encounter for screening mammogram for malignant neoplasm of breast Comprehensive Met. Panel Today E78.5 - Hyperlipidemia, unspecified, I10 - Essential (primary) hypertension, I21.4 - Non-ST elevation (NSTEMI) myocardial infarction, Z13.0 - Encounter for screening for diseases of the blood and blood-forming organs and certain disorders involving the immune mechanism Lipid Panel Today E78.5 - Hyperlipidemia, unspecified, I10 - Essential (primary) hypertension, I21.4 - Non-ST elevation (NSTEMI) myocardial infarction, Z13.0 - Encounter for screening for diseases of the blood and blood-forming organs and certain disorders involving the immune mechanism UA CC w/rflx Micro + Cult Today Z13.228 - Encounter for screening for other metabolic disorders
== END 2024-10-15 13:44 | disposition home or self-care (01) ==
LOC: HO.HMCHD 13:13
PROVIDERS: Visit Provider Internal Medicine
DX: M47.816 Spondylosis without myelopathy or radiculopathy, lumbar region (principal); I25.10 Atherosclerotic heart disease of native coronary artery without angina pectoris

== ENCOUNTER → 2024-10-15 13:12 | Outpatient (BNVA) | payer MEDICARE, SELFPAY | PROVIDERS: Visit Provider Internal Medicine | DX: I25.10 Atherosclerotic heart disease of native coronary artery without angina pectoris (principal); I25.2 Old myocardial infarction; E78.5 Hyperlipidemia, unspecified; Z86.73 Personal history of transient ischemic attack (TIA), and cerebral infarction without residual deficits; J45.909 Unspecified asthma, uncomplicated; G47.33 Obstructive sleep apnea (adult) (pediatric); M47.816 Spondylosis without myelopathy or radiculopathy, lumbar region; I21.4 Non-ST elevation (NSTEMI) myocardial infarction | CPT/HCPCS: 96127; 99202 ==

== ENCOUNTER 2024-10-21 07:39 | Outpatient (REF) | payer MEDICARE, SELFPAY ==
--- NOTE | ~2024-10-21 | MM_ITS ---
EXAMINATION: MM SCREENING DIGITAL BREAST TOMOSYNTHESIS, BILATERAL CLINICAL INFORMATION: Screening. Asymptomatic. COMPARISON: Mammography: Comparison is made with available priors TECHNIQUE: Digital breast mammography with tomosynthesis is performed in both the craniocaudal and mediolateral oblique views along with computer-aided detection (CAD). FINDINGS: The breasts are almost entirely fatty (ACR BI-RADS breast composition Category a). There are no significant masses, abnormal calcifications, or other abnormalities. MM/MM tomosynthesis screening BI IMPRESSION: No mammographic evidence of malignancy. ASSESSMENT: BI-RADS BI-RADS 1 - Negative RECOMMENDATION: Routine annual mammography screening. 1 year F/U This examination should not preclude the clinical evaluation of a suspicious palpable abnormality. This patient's information was entered into a reminder system with a target due date for their next mammogram. Electronically signed by: Sharmaine Tamayo DO 10/30/2024 01:02 PM EDT
[2024-10-21 07:50] LABS: MANUAL DIFF FLAG NO
[2024-10-21 08:25] LABS: Basophils Absolute Auto 0.1 X10*3/uL (0.0-0.2); Eosinophils Absolute Auto 0.1 X10*3/uL (0.0-0.4); Eosinophils Percent Auto 1.5 % (0-4); Hematocrit 38.6 % (37.0-47.0); Hemoglobin 12.8 g/dl (12.0-16.0); Imm Gran Abs Auto 0.02 X10*3/uL (0.00-0.03); Imm Gran Pct Auto 0.3 % (0.0-0.4); Lymphocytes Absolute Auto 1.8 X10*3/uL (1.2-4.9); Lymphocytes Percent Auto 29.7 % (20-40); Mean Corpuscular HGB Conc 33.2 g/dl (31.0-35.0); Mean Corpuscular Hemoglobin 30.9 pg (27.0-33.0); Mean Corpuscular Volume 93.2 fL (80.0-98.0); Mean Platelet Volume 10.3 fL (9.4-12.3); Monocytes Absolute Auto 0.7 X10*3/uL (0.1-1.2); Monocytes Percent Auto 11.4 % (2-11); Neutrophils Absolute Auto 3.3 x10*3/uL (2.0-8.3); Neutrophils Percent Auto 56.1 % (45-73); Platelet Count 251 X10*3/uL (160-400); Red Blood Count 4.14 X10*6/uL (4.20-5.50); Red Cell Distribution Width 12.9 % (11.0-16.0)
[2024-10-21 08:58] LABS: Appearance Urine Clear; Color Urine Yellow; Glucose Urine UA Negative (Negative); Leukocyte Esterase Urine Trace (Negative); Nitrite Urine Negative (Negative); PH 5.5 (5.0-9.0); Specific Gravity - Urine 1.015 (1.005-1.025); UMIC TRIGGER UACC YES; Urine Blood Negative (Negative); Urine Ketones Negative (Negative); Urine Protein Negative (Neg-Trace)
[2024-10-21 09:03] LABS: Bacteria Urine None Seen (None Seen); Hyaline Casts Urine 0-2 /LPF (0-2); RBC Urine 0-2 /HPF (0-2); Squamous Epithelial Cell Urine 0-2 /HPF (0-2); WBC Urine 0-5 /HPF (0-5)
[2024-10-21 09:03] LABS: Alanine Aminotransferase 18 U/L (0-31); Albumin Level 4.4 g/dL (3.5-5.0); Alkaline Phosphatase 80 U/L (39-117); Anion Gap 11 (12-20); Aspartate Amino Transferase 21 U/L (5-31); Bilirubin Total 0.8 mg/dL (0.0-1.0); Blood Urea Nitrogen 16 mg/dL (9-16); Calcium 9.5 mg/dL (8.4-10.2); Carbon Dioxide 27 mmol/L (22-29); Chloride 100 mmol/L (96-108); Cholesterol 174 mg/dL (<200); Estimated Glomerular Filt Rate > 60; Glucose Random 95 mg/dL (60-115); HDL Cholesterol 68 mg/dL (>40); LDL Cholesterol Calculated 80 mg/dL (<100); Potassium 4.2 mmol/L (3.3-5.1); Sodium 134 mmol/L (135-145); Total Protein 7.5 g/dL (6.5-8.0); Triglycerides 131 mg/dL (<150)
== END 2024-10-21 07:40 | disposition home or self-care (01) ==
LOC: HO.MAMMO 07:39
PROVIDERS: Absent Provider Internal Medicine; PCP Internal Medicine; Visit Provider Internal Medicine
DX: Z12.31 Encounter for screening mammogram for malignant neoplasm of breast (principal); Z13.0 Encounter for screening for diseases of the blood and blood-forming organs and certain disorders involving the immune mechanism; I10 Essential (primary) hypertension; E78.5 Hyperlipidemia, unspecified; I21.4 Non-ST elevation (NSTEMI) myocardial infarction
CPT/HCPCS: 36415; 77063; 77067; 80053; 80061; 81001; 85025

== ENCOUNTER → 2024-10-21 11:00 | Outpatient (BNV) | payer MEDICARE, SELFPAY | PROVIDERS: Absent Provider Internal Medicine; PCP Internal Medicine; Visit Provider Internal Medicine | DX: Z12.31 Encounter for screening mammogram for malignant neoplasm of breast (principal) | CPT/HCPCS: 77063; 77067 ==

== ENCOUNTER 2024-11-24 13:05 | Outpatient (AMB) | payer MEDICARE, SELFPAY ==
[2024-11-24 13:07] VITALS: BP 122/70; PULSE 72; BMI 28.0
--- NOTE | 2024-11-24 13:07 | MHC.OFFVIS ---
Vital Signs 11/24/24 13:07 Height 5 ft 9 in Weight 189 lb 9.561 oz BMI 28.0 BP 122/70 Blood Pressure Location Lt brachial Position Sitting Pulse 72 Pulse Source Pulse Oximeter Intake Visit Reasons: 1 yr f/up Allergies amoxicillin (From PREVPAC) Allergy (Severe, Verified 10/15/24 13:15) RASH clarithromycin (From PREVPAC) Allergy (Severe, Verified 10/15/24 13:15) RASH lansoprazole (From PREVPAC) Allergy (Severe, Verified 10/15/24 13:15) RASH nirmatrelvir (From Paxlovid) Allergy (Unknown, Verified 10/15/24 13:15) Hives ritonavir (From Paxlovid) Allergy (Unknown, Verified 10/15/24 13:15) Hives tramadol Allergy (Unknown, Verified 10/15/24 13:15) Hives Medication List - Last Reconciled 11/24/24 by Ivan Interiano MD acetaminophen ER 1,300 mg (2 x 650 mg) PO Q12H PRN albuterol sulfate 90 mcg/actuation (ProAir HFA) 2 puffs PO QID amlodipine 5 mg PO DAILY aspirin 81 mg PO DAILY atorvastatin 40 mg PO DAILY diclofenac sodium 1% (Arthritis Pain (diclofenac)) 4 grams topical QID PRN meclizine 12.5 mg PO TID PRN metoprolol succinate ER 50 mg PO DAILY HPI Comments Details: Keyla returns for follow-up. To recall, in 2019 she was admitted for stroke. In that context had slight elevation in troponins. Recovered from the stroke itself. Overall, she states she is feeling fine. No clear-cut complaints like angina or shortness of breath or in fact any other cardiac symptoms. Doing okay. [facility] Medical History Impacted cerumen of both ears CVA (cerebral vascular accident) NSTEMI (non-ST elevated myocardial infarction) Vertigo Asthma HLD (hyperlipidemia) HTN (hypertension) Surgical History History of colonoscopy (~03/27/13) No pertinent past surgical history Family History Mother Heart disease Father Stomach cancer Social History Household Members: None Housing: Apartment Do you presently have visiting nurse or other home services: No Alcohol intake: current Alcohol intake frequency: holidays/special occasions only Comment: pt rings appropriately Patient Tobacco Use Status: Former Tobacco user e-Cigarette/Vaping Use: Former Use service: No Current occupational status: retired Current occupation: rt handed Cognitive needs: No Hearing needs: No Vision needs: Yes (reading glasses) Review of Systems Const Denies weakness ENT Denies dizziness Card Denies chest pain, Denies chest pain with activity, Denies syncope, Denies rapid heart rate, Denies pedal edema, Denies edema, Denies leg edema, Denies lightheadedness, Denies palpitations, Denies dyspnea, Denies dyspnea on exertion and Denies orthopnea Resp Denies cough, Denies dyspnea and Denies dyspnea on exertion GI Denies hematochezia and Denies change in stool character Musc Denies abnormal gait, Denies muscle cramps, Denies muscle weakness, Denies numbness, Denies radiating pain into limb and Denies tingling Neuro Denies abnormal gait, Denies dizziness, Denies syncope, Denies numbness, Denies tingling and Denies weakness Endo Denies palpitations Physical Exam Vital Signs: Last Vital Signs Pulse 72 11/24/24 13:07 BP 122/70 11/24/24 13:07 BMI result Body Mass Index 28.0 Const General: comfortable and no acute distress Orientation/consciousness: patient oriented x3 HEENT Other: Unremarkable Head: Yes normal to inspection Neck Neck: Yes normal visual inspection Chest Chest palpation & inspection: normal inspection of the chest Resp Auscultation: clear to auscultation bilaterally Cardio Palpation: normal PMI Heart sounds: S1 normal heart sound present, S2 normal heart sound present, no gallops, no murmurs and no rubs GI Palpation (GI): Soft to palpation Back/Spine/Pelvis Other: unremarkable Skin General skin exam: no rashes or lesions noted Neuro General: patient oriented x3 Extrem General: Yes normal to inspection Psych Mental Status: mental status grossly normal Assessment & Plan Assessment & Plan (1) Atherosclerotic cardiovascular disease: Code(s): I25.10 - Atherosclerotic heart disease of [place] coronary artery without angina pectoris Category: Medical (2) Ischemic stroke: Code(s): I63.9 - Cerebral infarction, unspecified Category: Medical (3) Essential hypertension: Code(s): I10 - Essential (primary) hypertension Category: Medical (4) HLD (hyperlipidemia): Code(s): E78.5 - Hyperlipidemia, unspecified Category: Medical Plan Cardiac testing- Myocardial perfusion imaging- 05/2020- no ischemia. Fixed distal anterior/apical defect thought to be from soft tissue artifact. Echo-04/2020-LVEF 60-65%; mild aortic valve calcification. She can remain on long-term aspirin. Blood pressure is controlled on the current regimen and she is on metoprolol/amlodipine. Continue statins. 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 Weight loss would help. Follow-up 1 year. In the interim, she will call with concerns. Discussion Notes I discussed with the patient the importance of maintaining blood pressure control and the role of her current medications in achieving this. We also talked about the benefits of weight loss and regular exercise in managing her musculoskeletal pain. Patient was informed and verbally consented to the use of an ambient scribe for clinic note documentation during this visit. Patient Instructions: - Continue taking amlodipine and metoprolol as prescribed. - Monitor blood pressure regularly at home. - Use ice packs for back pain relief. - Engage in regular physical activity as tolerated. - Aim for gradual weight loss to reduce joint stress. Coding Level of Care Code Est Pt Level 4 (70270) Complex EM visit Add On G2211 Diagnoses Atherosclerotic cardiovascular disease I25.10 Ischemic stroke I63.9 Essential hypertension I10 HLD (hyperlipidemia) E78.5
--- OUTSIDE RECORDS SUMMARY | 2024-11-24 14:24 | XMS_ITS | Patient Health Record ---
Author Organization [facility] Address [address] [place] [address] Care Team Providers Care Meter Repair Shop Supervisor Name Role Phone Charmaine (RETIRED) Volodymyr CARRASQUILLO Primary Care Provide Brandan Wilson Jr Unavailable [phone] Allergies Allergen (clinical drug ingredient) Drug/Non Drug Allergy documented on EMR Reaction Allergy Type Onset Date Status Prevpac Unknown Drug Allergy Active Reason For Referral No Information Medications Medication SIG (Take, Route, Frequency, Duration) Notes Start Date End Date Status Viactiv 1000mg Activ e Multi Vitamin/Minerals Active Atenolol 25mg Active Simvastatin 20mg Act ijeoma ProAir HFA Active Fluticasone Propionate 50mcg Active Omeprazole 20 MG 1 capsule Orally Onc e a day for 90 days 01/20/2013 Active Colyte with Flavor Packs 240 GM as directed Orally Over the specified time. for 1 day(s) 01/22/2013 05/13/2024 Active Problems Problem Type SNOMED Code ICD Code Onset Dates Problem Status W/U Status Risk Notes Problem GI bleeding (578.9) Active confirmed Plan Of Treatment Future Test Test Name Order Date UPPER GI ENDOSCOPY 01/22/2013 COLONOSCOPY 01/22/2013 Insurance Providers Payer Name Payer Address Payer Phone Subscriber Number Group Number Insured Name Patient Relationship to Insured Coverage Start Date Coverage End Date MEDICARE OF [place] [address] [place] [id number] [id number] FERNANDO LOPEZ Self - patient is the insured [employer] ATTN CLAIMS [address] [place] [address] [id number] FERNANDO LOPEZ Self - patient is the insured Medical (General) History Medical History History ICD Code egd and colon 06-02-2004 gastritis hypertension arthritis Denies [place],DM,CVA,Lung disease,renal dise ase
== END 2024-11-24 13:55 | disposition home or self-care (01) ==
LOC: HO.HCS 13:06
PROVIDERS: PCP Internal Medicine; Visit Provider Internal Medicine
DX: I25.10 Atherosclerotic heart disease of native coronary artery without angina pectoris (principal); I63.9 Cerebral infarction, unspecified; I10 Essential (primary) hypertension; E78.5 Hyperlipidemia, unspecified
CPT/HCPCS: 99214; G2211

== ENCOUNTER → 2024-11-24 13:05 | Outpatient (BNVA) | payer MEDICARE, SELFPAY | PROVIDERS: PCP Internal Medicine; Visit Provider Internal Medicine | DX: I25.10 Atherosclerotic heart disease of native coronary artery without angina pectoris (principal); I10 Essential (primary) hypertension; E78.5 Hyperlipidemia, unspecified; Z79.82 Long term (current) use of aspirin; Z79.899 Other long term (current) drug therapy; Z86.73 Personal history of transient ischemic attack (TIA), and cerebral infarction without residual deficits | CPT/HCPCS: 99212 ==

== ENCOUNTER 2025-02-18 15:56 | Outpatient (AMB) | payer MEDICARE, SELFPAY ==
--- NOTE | 2025-02-18 14:39 | MHC.PC.OV ---
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 Accompanied by: Self / Same As Patient Allergies amoxicillin (From PREVPAC) Allergy (Severe, Verified 02/18/25 14:39) RASH clarithromycin (From PREVPAC) Allergy (Severe, Verified 02/18/25 14:39) RASH lansoprazole (From PREVPAC) Allergy (Severe, Verified 02/18/25 14:39) RASH nirmatrelvir (From Paxlovid) Allergy (Unknown, Verified 02/18/25 14:39) Hives ritonavir (From Paxlovid) Allergy (Unknown, Verified 02/18/25 14:39) Hives tramadol Allergy (Unknown, Verified 02/18/25 14:39) Hives Medication List - Last Reconciled 02/18/25 by Aleksandr Bartlett MD acetaminophen ER 1,300 mg (2 x 650 mg) PO Q12H PRN albuterol sulfate 90 mcg/actuation (ProAir HFA) 2 puffs PO QID amlodipine 5 mg PO DAILY aspirin 81 mg PO DAILY atorvastatin 40 mg PO DAILY diclofenac sodium 1% (Arthritis Pain (diclofenac)) 4 grams topical QID PRN meclizine 12.5 mg PO TID PRN metoprolol succinate ER 50 mg PO DAILY multivitamin 1 tab PO DAILY Tobacco use date assessed: 10/15/24 Fall risk assessment: 1 Fall in past year Last assessed Fall Risk: 02/18/25 Dental Screening Dental Screen Date: 10/15/24 HPI HPI Comments History of Present Illness Details The patient is an 84-year-old female presenting with a constellation of chronic conditions requiring ongoing management. She reports increased usage of albuterol due to exacerbations of asthma, notably in the past six weeks, potentially triggered by a change in weather. She experiences shortness of breath, which is relieved by albuterol. The patient has a history of back pain and generalized joint pain managed with Tylenol, as well as essential hypertension controlled with amlodipine. She mentions occasional dizziness, for which she takes meclizine, though episodes are infrequent. She denies significant nausea or chest pain but experiences occasional tension headaches. The patient reports urinary urgency and frequency, accompanied by a burning sensation, which she associates with constipation. Her constipation is described as more prevalent than diarrhea, occasionally alleviated by dietary changes. She believes her constipation may have contributed to recurrent bladder prolapse, noting she underwent surgical correction previously. Medical History: - Asthma - Osteoarthritis - Essential Hypertension - Coronary Artery Disease - Hyperlipidemia Surgical History: - Surgical repair for bladder prolapse Medications: - Albuterol inhaler for asthma - Tylenol for back and joint pain - Amlodipine 5 mg for hypertension - Aspirin for coronary artery disease - Atorvastatin 40 mg for hyperlipidemia - Metoprolol succinate for hypertension - Meclizine for dizziness Diagnostic Results: - Labs: Trace leukocyte esterase in urine, cholesterol levels with LDL at 80. Socail History: - Lives alone in a residential facility - Engages in regular activities within her living community - Prefers walking indoors for safety - Maintains social involvement in her residential community - Consumes a diet inclusive of fruit to manage constipation [facility] Medical History (Updated 02/18/25 @ 16:20 by Aleksandr Bartlett MD) Constipation Joint pain Impacted cerumen of both ears CVA (cerebral vascular accident) NSTEMI (non-ST elevated myocardial infarction) Vertigo Asthma HLD (hyperlipidemia) HTN (hypertension) Surgical History History of colonoscopy (~03/27/13) No pertinent past surgical history Family History Mother Heart disease Father Stomach cancer Social History Household Members: None Housing: Apartment Do you presently have visiting nurse or other home services: No Alcohol intake: current Alcohol intake frequency: holidays/special occasions only Comment: pt rings appropriately Patient Tobacco Use Status: Former Tobacco user Years Smoked: 10 years e-Cigarette/Vaping Use: Never Used service: No Current occupational status: retired Current occupation: rt handed Cognitive needs: No Hearing needs: No Vision needs: Yes (reading glasses) Questionnaire Thrive Questionnaire Date Thrive assessed: 10/15/24 HOA-7 AMB Questionnaire HOA-7 Date HOA - 7 assessed: 10/15/24 Source: Developed by Drs. Aidan Alvarez, Ale Alfredo, Guzman Iglesias and colleagues, with an educational tomasz from [employer]. Review of Systems Const Details: - General: Denies any significant weight change or fever. - Respiratory: Reports shortness of breath, uses albuterol for asthma relief. - Cardiovascular: Denies chest pain or palpitations. - Gastrointestinal: Reports constipation more than diarrhea, occasional dietary adjustments. - Neurologic: Reports occasional dizziness; dizziness episodes controlled with meclizine. - Urinary: Reports frequency, urgency, and burning during urination, likely related to constipation. - Musculoskeletal: Reports joint pain, managed with Tylenol. - Neurologic: Denies major headaches, notes occasional tension headaches. All systems reviewed & are unremarkable except as reviewed in HPI and above Physical exam (Primary Care) Vital Signs: Last Vital Signs Temp 97.9 F 02/18/25 16:03 Pulse 73 02/18/25 16:03 Resp 16 02/18/25 16:03 BP 128/60 02/18/25 16:03 Pulse Ox 98 02/18/25 16:03 Oxygen Delivery Method Room Air 02/18/25 16:03 BMI result Body Mass Index 28.4 Tobacco/Smoking Status: Tobacco use Status Tobacco use date assessed 10/15/24 02/18/25 14:40 Patient Tobacco Use Status Former Tobacco user 02/18/25 14:40 e-Cigarette/Vaping Use Never Used 02/18/25 16:03 Thrive Assessment: Date of Thrive Assessment Date Thrive assessed 10/15/24 02/18/25 14:40 Const Other: General: Alert and oriented, Well nourished, No acute distress. Eye: Pupils are equal, round and reactive to light, Intact accommodation, Extraocular movements are intact, Normal conjunctiva, Vision unchanged. HENT: Normocephalic, Atraumatic, Tympanic membranes are clear, Normal hearing, Oral mucosa is moist, No pharyngeal erythema, Ear canals patent. Respiratory: Lungs CTA bilaterally, No wheeze, Respirations are non-labored. Cardiovascular: Regular rate, Regular rhythm, S1 auscultated, S2 auscultated, No murmur, Good pulses equal in all extremities, Normal peripheral perfusion, No edema. Gastrointestinal: Soft, Non-tender, Non-distended, Normal bowel sounds, No organomegaly, Constipation more than diarrhea. Musculoskeletal: Normal range of motion, Normal strength, No tenderness, No swelling, No deformity, Normal gait. Integumentary: Warm, Dry, [place], Intact. Neurologic: Alert, Oriented, Normal sensory, Normal motor function, No focal defects, Cranial Nerves II-XII are grossly intact, Normal deep tendon reflexes. Psychiatric: Cooperative, Appropriate mood & affect, Normal judgment. Coding Level of Care Code Est Pt Level 4 (23864) Complex EM visit Add On G2211 Diagnoses Essential hypertension I10 Coronary artery disease involving [place] coronary artery of [place] heart, unspecified whether angina present I25.10 Associated angina: unspecified whether angina present Coronary Disease-Associated Artery/Lesion type: [place] artery [place] vs. transplanted heart: [place] heart Other hyperlipidemia E78.49 Hyperlipidemia type: other hyperlipidemia Dizziness R42 Arthralgia, unspecified joint M25.50 Joint pain location: unspecified Constipation, unspecified constipation type K59.00 Constipation type: unspecified constipation type Mild intermittent asthma without complication J45.20 Asthma severity: mild Asthma persistence: intermittent Asthma complication type: uncomplicated Assessment & Plan Assessment & Plan (1) Essential hypertension: Comment: - Blood pressure is stable with amlodipine and metoprolol. Blood pressure is maintained within a good range during examination. Code(s): I10 - Essential (primary) hypertension Category: Medical (2) CAD (coronary artery disease): Comment: - Continuing aspirin therapy. LDL levels controlled with atorvastatin. Code(s): I25.10 - Atherosclerotic heart disease of [place] coronary artery without angina pectoris Category: Medical Qualifiers: Associated angina: unspecified whether angina present Coronary Disease-Associated Artery/Lesion type: [place] artery [place] vs. transplanted heart: [place] heart Qualified Code(s): I25.10 - Atherosclerotic heart disease of [place] coronary artery without angina pectoris (3) HLD (hyperlipidemia): Comment: - Atorvastatin 40 mg is effective in maintaining cholesterol levels within target range. Code(s): E78.5 - Hyperlipidemia, unspecified Category: Medical Qualifiers: Hyperlipidemia type: other hyperlipidemia Qualified Code(s): E78.49 - Other hyperlipidemia (4) Dizziness: Comment: - Meclizine use only as needed, symptoms are under control. Code(s): R42 - Dizziness and giddiness Category: Medical (5) Joint pain: Comment: - Joint pain managed with Tylenol. Regular use of Tylenol continues to be effective. Code(s): M25.50 - Pain in unspecified joint Category: Medical Qualifiers: Joint pain location: unspecified Qualified Code(s): M25.50 - Pain in unspecified joint (6) Constipation: Comment: - Dietary adjustments have been partially effective. Recommendation to use MiraLax to improve bowel regularity and prevent recurrence of symptoms Code(s): K59.00 - Constipation, unspecified Category: Medical Qualifiers: Constipation type: unspecified constipation type Qualified Code(s): K59.00 - Constipation, unspecified (7) Asthma: Comment: - Patient is experiencing increased use of albuterol due to weather changes. Albuterol provides immediate relief during asthma attacks. A discussion was made regarding the potential need to adjust asthma management if symptoms persist or worsen, particularly if affected sleep. Code(s): J45.909 - Unspecified asthma, uncomplicated Category: Medical Qualifiers: Asthma severity: mild Asthma persistence: intermittent Asthma complication type: uncomplicated Qualified Code(s): J45.20 - Mild intermittent asthma, uncomplicated Plan: Health Maintenance: - Discussed importance of maintaining activity and social engagement to support overall health. - Recommended use of MiraLax to promote regularity and manage constipation, impacting bladder health. Patient was informed and verbally consented to the use of an ambient scribe for clinic note documentation during this visit. Plan - Dietary adjustments have been partially effective. Recommendation to use MiraLax to improve bowel regularity and prevent recurrence of bladder prolapse.During the visit, I discussed the current management of the patient's multiple chronic conditions, including asthma, hypertension, coronary artery disease, hyperlipidemia, and osteoarthritis. We addressed the increased use of albuterol for asthma and reviewed her medications, noting their continued efficacy. The patient was advised on the importance of bowel management to alleviate urinary symptoms linked to constipation. I emphasized adjusting lifestyle factors, using dietary modifications, and trying MiraLax. We also discussed the process for obtaining a disability parking tag and addressed safety concerns related to walking outdoors. I provided reassurance, encouraging her to remain engaged in activities within her living community to help maintain her health. Medications: New polyethylene glycol 3350 (Miralax) 17 grams PO BID 510 grams 0RF Patient Instructions: - Continue using albuterol as needed for asthma. - Use MiraLax daily to help with constipation. - Maintain current medication regimen for all chronic conditions. - Stay active socially and physically within your living community. - Drop off forms for a disability parking tag as discussed.
[2025-02-18 16:03] VITALS: BP 128/60; PULSE 73; RESP 16; TEMP 36.6; O2SAT 98; BMI 28.4
== END 2025-02-18 16:21 | disposition home or self-care (01) ==
LOC: HO.HMCHD 15:57
PROVIDERS: PCP Student in an Organized Health Care Education/Training Program; Visit Provider Student in an Organized Health Care Education/Training Program
DX: I10 Essential (primary) hypertension (principal); I25.10 Atherosclerotic heart disease of native coronary artery without angina pectoris; E78.49 Other hyperlipidemia; R42 Dizziness and giddiness; M25.50 Pain in unspecified joint; K59.00 Constipation, unspecified; J45.20 Mild intermittent asthma, uncomplicated

== ENCOUNTER → 2025-02-18 15:56 | Outpatient (BNVA) | payer MEDICARE, SELFPAY | PROVIDERS: PCP Internal Medicine; Visit Provider Student in an Organized Health Care Education/Training Program | DX: I10 Essential (primary) hypertension (principal); I25.10 Atherosclerotic heart disease of native coronary artery without angina pectoris; E78.49 Other hyperlipidemia; R42 Dizziness and giddiness; M25.50 Pain in unspecified joint; K59.00 Constipation, unspecified; J45.20 Mild intermittent asthma, uncomplicated; Z79.82 Long term (current) use of aspirin; Z79.899 Other long term (current) drug therapy | CPT/HCPCS: 99212 ==

== ENCOUNTER 2025-05-10 13:26 | Outpatient (AMB) | payer MEDICARE, SELFPAY ==
--- NOTE | 2025-05-10 13:29 | MHC.PC.OV ---
Vital Signs 05/10/25 13:30 Height 5 ft 9 in Weight 191 lb 8 oz BMI 28.3 BP 132/68 Blood Pressure Location Lt brachial Position Sitting Respiration 16 Pulse 73 Pulse Source Pulse Oximeter Temp 96.8 F Temp Source Temporal Artery Scan Pulse Oximetry (%) 97 Oxygen Delivery Method Room Air Intake Visit Reasons: cough, ? x-ray Trimmer Sawyer Required: No Accompanied by: Self / Same As Patient Allergies amoxicillin (From PREVPAC) Allergy (Severe, Verified 05/10/25 13:29) RASH clarithromycin (From PREVPAC) Allergy (Severe, Verified 05/10/25 13:29) RASH lansoprazole (From PREVPAC) Allergy (Severe, Verified 05/10/25 13:29) RASH nirmatrelvir (From Paxlovid) Allergy (Unknown, Verified 05/10/25 13:29) Hives ritonavir (From Paxlovid) Allergy (Unknown, Verified 05/10/25 13:29) Hives tramadol Allergy (Unknown, Verified 05/10/25 13:29) Hives Medication List - Last Reconciled 05/10/25 by Aleksandr Bartlett MD acetaminophen ER 1,300 mg (2 x 650 mg) PO Q12H PRN amlodipine 5 mg PO DAILY aspirin 81 mg PO DAILY atorvastatin 40 mg PO DAILY budesonide-formoterol 80-4.5 mcg/actuation (Symbicort) 2 puffs inhalation 6XD diclofenac sodium 1% (Arthritis Pain (diclofenac)) 4 grams topical QID PRN doxycycline monohydrate 100 mg PO BID meclizine 12.5 mg PO TID PRN metoprolol succinate ER 50 mg PO DAILY multivitamin 1 tab PO DAILY polyethylene glycol 3350 (Miralax) 17 grams PO BID PRN Tobacco use date assessed: 10/15/24 Fall risk assessment: No Falls in past year Last assessed Fall Risk: 05/10/25 Dental Screening Dental Screen Date: 10/15/24 HPI HPI Comments History of Present Illness Details History of Present Illness The patient is an 85 year old female presenting for evaluation of cold symptoms with concern for pneumonia. She reports having coughing spells that make it difficult to catch her breath, resulting in rib soreness. Due to her concerns, she visited a walk-in clinic where a nurse practitioner diagnosed her with a sinus infection, noted her lungs were clear without needing an X-ray, and prescribed a 7-day course of doxycycline. She has been on the antibiotic for three days and reports feeling much better today. The patient has a history of asthma and has been using an albuterol inhaler once or twice a day for her cough. Her medical history is also significant for hypertension, heart disease, high cholesterol, and dizziness, for which she takes amlodipine, metoprolol, aspirin, atorvastatin, and meclizine, respectively. She also uses Tylenol as needed for joint pain. Regarding her gastrointestinal health, she was previously advised to start MiraLax for constipation. She reports it is effective for maintaining regular bowel movements but has caused nausea and dry heaves on a couple of occasions. For health maintenance, the patient confirms she has received her flu shot for this year. Medical History: - Asthma - Hypertension - Heart disease - Hyperlipidemia - Dizziness - Constipation - Arthralgia Medications: - Amlodipine 5 mg for hypertension - Aspirin 81 mg for heart disease - Atorvastatin 40 mg for high cholesterol - Meclizine as needed for dizziness - Metoprolol 50 mg for hypertension - Doxycycline 100 mg for a presumed upper respiratory tract infection - Albuterol inhaler, once to twice daily, for asthma - MiraLax for constipation - Tylenol as needed for joint pain - Tussin DM for cough and congestion Diagnostic Results: - An X-ray was not performed at a recent walk-in clinic visit as the provider assessed the patient's lungs as clear. Social History - Functional Status: The patient's recent illness prevented her from fully enjoying [place] with her five great-grandchildren. - The patient avoids driving in snowy or icy conditions. [facility] Medical History (Updated 05/10/25 @ 14:03 by Aleksandr Bartlett MD) URI (upper respiratory infection) Constipation Joint pain Impacted cerumen of both ears CVA (cerebral vascular accident) NSTEMI (non-ST elevated myocardial infarction) Vertigo Asthma HLD (hyperlipidemia) HTN (hypertension) Surgical History History of colonoscopy (~03/27/13) No pertinent past surgical history Family History Mother Heart disease Father Stomach cancer Social History Household Members: None Housing: Apartment Do you presently have visiting nurse or other home services: No Alcohol intake: current Alcohol intake frequency: holidays/special occasions only Comment: pt rings appropriately Patient Tobacco Use Status: Former Tobacco user Years Smoked: 10 years e-Cigarette/Vaping Use: Never Used service: No Current occupational status: retired Current occupation: rt handed Cognitive needs: No Hearing needs: No Vision needs: Yes (reading glasses) Questionnaire Thrive Questionnaire Date Thrive assessed: 10/15/24 AUDIT C Alcohol Use Questionnaire (AUDIT-C) 1. How often do you have a drink containing alcohol?: Never 3. How often do you have six or more drinks on one occasion?: Never Total Score: 0 HOA-7 AMB Questionnaire HOA-7 Date HOA - 7 assessed: 10/15/24 Source: Developed by Drs. Aidan Alvarez, Ale Alfredo, Guzman Iglesias and colleagues, with an educational tomasz from [employer]. Review of Systems Narrative Review of Systems - Constitutional: Reports weakness and feeling run down. - Denies fever and chills. - Respiratory: Reports coughing spells with associated shortness of breath, phlegm, and mucus. - Denies feeling that her airways are closed. - HEENT: Reports symptoms consistent with a sinus infection including a runny nose and headache. - Reports a sore throat. - Musculoskeletal: Reports rib soreness secondary to coughing and generalized joint pain. - Gastrointestinal: Reports constipation that is improving with MiraLax, but also reports nausea and dry heaves as a side effect. - Neurological: Reports dizziness. All systems reviewed & are unremarkable except as reviewed in HPI and above Physical exam (Primary Care) Vital Signs: Last Vital Signs Temp 96.8 F 05/10/25 13:30 Pulse 73 05/10/25 13:30 Resp 16 05/10/25 13:30 BP 132/68 05/10/25 13:30 Pulse Ox 97 05/10/25 13:30 Oxygen Delivery Method Room Air 05/10/25 13:30 BMI result Body Mass Index 28.3 Tobacco/Smoking Status: Tobacco use Status Tobacco use date assessed 10/15/24 05/10/25 13:37 Patient Tobacco Use Status Former Tobacco user 05/10/25 13:37 e-Cigarette/Vaping Use Never Used 05/10/25 13:37 Thrive Assessment: Date of Thrive Assessment Date Thrive assessed 10/15/24 05/10/25 13:37 Narrative Physical Exam General: +Alert and oriented, Well nourished, No acute distress. Eye: Pupils are equal, round and reactive to light, Intact accommodation, Extraocular movements are intact, Normal conjunctiva, Vision unchanged. HENT: Normocephalic, Atraumatic, Tympanic membranes are clear, Normal hearing, Oral mucosa is moist, No pharyngeal erythema, Ear canals patent. Respiratory: Lungs CTA bilaterally, No wheeze, Respirations are non-labored, Lungs sound crystal clear. Cardiovascular: Regular rate, Regular rhythm, S1 auscultated, S2 auscultated, No murmur, Good pulses equal in all extremities, Normal peripheral perfusion, No edema. Gastrointestinal: Soft, Non-tender, Non-distended, Normal bowel sounds, No organomegaly. Musculoskeletal: Normal range of motion, Normal strength, No tenderness, No swelling, No deformity, Normal gait. Integumentary: Warm, Dry, [place], Intact. Neurologic: Alert, Oriented, Normal sensory, Normal motor function, No focal defects, Cranial Nerves II-XII are grossly intact, Normal deep tendon reflexes. Psychiatric: Cooperative, Appropriate mood & affect, Normal judgment. Coding Level of Care Code Est Pt Level 4 (66384) Add On Problem Visit Only Diagnoses Upper respiratory tract infection, unspecified type J06.9 URI type: unspecified URI Mild intermittent asthma without complication J45.20 Asthma severity: mild Asthma persistence: intermittent Asthma complication type: uncomplicated Essential hypertension I10 Other hyperlipidemia E78.49 Hyperlipidemia type: other hyperlipidemia Coronary artery disease involving [place] coronary artery of [place] heart, unspecified whether angina present I25.10 Coronary Disease-Associated Artery/Lesion type: [place] artery [place] vs. transplanted heart: [place] heart Associated angina: unspecified whether angina present Constipation, unspecified constipation type K59.00 Constipation type: unspecified constipation type Assessment & Plan Assessment & Plan (1) URI (upper respiratory infection): Comment: - The patient's presentation is most consistent with a viral upper respiratory infection, given her symptoms and the current flu season. - Pneumonia is unlikely given her stable condition and clear lung exam and symptoms/vitals. - CXR offered however patient denied - The patient will complete the 7-day course of doxycycline that was started at a walk-in clinic. - Recommended supportive care, including increased fluid intake, using a humidifier, steam inhalation, Vicks, Mucinex, and xcqy-xqc-rmrqobu decongestants like Tussin DM. Code(s): J06.9 - Acute upper respiratory infection, unspecified Category: Medical Qualifiers: URI type: unspecified URI Qualified Code(s): J06.9 - Acute upper respiratory infection, unspecified (2) Asthma: Comment: - The patient's cough is likely an exacerbation of her asthma, triggered by her viral illness and cold weather. - Plan to discontinue the albuterol inhaler. - A prescription for Symbicort was sent, with instructions to use it daily, morning and evening. Code(s): J45.909 - Unspecified asthma, uncomplicated Category: Medical Qualifiers: Asthma severity: mild Asthma persistence: intermittent Asthma complication type: uncomplicated Qualified Code(s): J45.20 - Mild intermittent asthma, uncomplicated (3) Essential hypertension: Comment: - Blood pressure is stable with amlodipine and metoprolol. Blood pressure is maintained within a good range during examination. Code(s): I10 - Essential (primary) hypertension Category: Medical (4) HLD (hyperlipidemia): Comment: - Atorvastatin 40 mg is effective in maintaining cholesterol levels within target range. Code(s): E78.5 - Hyperlipidemia, unspecified Category: Medical Qualifiers: Hyperlipidemia type: other hyperlipidemia Qualified Code(s): E78.49 - Other hyperlipidemia (5) CAD (coronary artery disease): Comment: - Continuing aspirin therapy. LDL levels controlled with atorvastatin. Code(s): I25.10 - Atherosclerotic heart disease of [place] coronary artery without angina pectoris Category: Medical Qualifiers: Coronary Disease-Associated Artery/Lesion type: [place] artery [place] vs. transplanted heart: [place] heart Associated angina: unspecified whether angina present Qualified Code(s): I25.10 - Atherosclerotic heart disease of [place] coronary artery without angina pectoris (6) Constipation: Comment: - The condition is well-managed with MiraLax. - The patient was reassured that the reported nausea is a common initial side effect and was advised to continue the medication to maintain regular bowel movements. Code(s): K59.00 - Constipation, unspecified Category: Medical Qualifiers: Constipation type: unspecified constipation type Qualified Code(s): K59.00 - Constipation, unspecified Plan: Health Maintenance: - The patient has received her influenza vaccination for the current season. - Follow-up visit for chronic disease management rescheduled to August. Patient was informed and verbally consented to the use of an ambient scribe for clinic note documentation during this visit. Plan I explained to the patient that we do not typically prescribe antibiotics over the phone, especially for conditions that are likely viral, to avoid unnecessary antibiotic use and radiation exposure from imaging. I assessed her and determined that her symptoms, coupled with her stable vitals and clear lung exam, make a diagnosis of pneumonia highly unlikely. Although I offered a chest X-ray for her peace of mind, I advised that I did not believe it was clinically indicated. We discussed that her cough is likely an asthma exacerbation from her viral illness, and I have switched her from albuterol to a daily Symbicort inhaler for better control. I also addressed her concern about nausea with MiraLax, reassuring her that it is a common initial side effect and encouraged her to continue its use for her constipation. We agreed to reschedule her next follow-up visit from June to August. Medications: New budesonide-formoterol 80-4.5 mcg/actuation (Symbicort) 2 puffs inhalation 6XD 10.2 grams 6RF Changed From polyethylene glycol 3350 (Miralax) 17 grams PO BID PRN To polyethylene glycol 3350 (Miralax) 17 grams PO BID 510 grams 0RF Patient Instructions: - Please finish the full 7-day course of the doxycycline antibiotic that you were prescribed at the walk-in clinic. - Stop using your albuterol inhaler. - Start using your new inhaler, Symbicort, every day in the morning and evening. - Continue taking MiraLax for constipation; the nausea you experienced is a common side effect and should improve. - For your cold symptoms, drink plenty of fluids, use a humidifier or steam (like a hot shower or Vicks device), and you can use hozc-nur-mjigleg medicines like Tussin DM, Mucinex, or throat lozenges. - Continue taking all your other prescribed medications for blood pressure, cholesterol, and heart health. - Your next appointment will be rescheduled for August.
[2025-05-10 13:30] VITALS: BP 132/68; PULSE 73; RESP 16; TEMP 36; O2SAT 97; BMI 28.3
--- OUTSIDE RECORDS SUMMARY | 2025-05-10 15:32 | XMS_ITS | Patient Health Record ---
Author Organization [facility] Address [address] [place] [address] Care Team Providers Care Medical Office Assistant Name Role Phone Charmaine (RETIRED) Volodymyr CARRASQUILLO Primary Care Provide Brandan Wilson Jr Unavailable [phone] Allergies Allergen (clinical drug ingredient) Drug/Non Drug [...] Fluticasone Propionate 50mcg Active Omeprazole 20 MG Capsule Delayed Release 1 capsule Orally Once a day; Duration: 90 days 01/20/2013 Active Colyte with Flavor Packs 240 GM Solution Reconstituted as directed Orally Over the specified time.; Duration: 1 day(s) 01/22/2013 Active Social History Social History Additional Details Category Social Info Options Details Miscellaneous: Marital status: Occupation: retired Problems Problem Type SNOMED Code ICD Code Onset Dates Problem Status W/U Status Risk Notes Problem GI bleeding (19139365) GI bleeding (578.9) Active confirmed Plan Of Treatment Future Test Test Name Order Date UPPER GI ENDOSCOPY 01/22/2013 COLONOSCOPY 01/22/2013 Insurance Providers Payer Name Payer Address Payer Phone Subscriber Number Group Number Insured Name Patient Relationship to Insured Coverage Start Date Coverage End Date [employer] OF [place] [address] [place] [id number] FERNANDO LOPEZ Self - patient is the insured [employer] ATT[employer] CLAIMS [address] [place] [address] [phone] [id number] FERNANDO LOPEZ Self - patient is the insured Medical (General) History Medical History History ICD Code egd and colon 06-02-2004 gastritis hypertension arthritis Denies IA,DM,CVA,Lung disease,renal dise ase
== END 2025-05-10 13:54 | disposition home or self-care (01) ==
LOC: HO.HMCHD 13:27
PROVIDERS: PCP Student in an Organized Health Care Education/Training Program; Visit Provider Student in an Organized Health Care Education/Training Program
DX: J06.9 Acute upper respiratory infection, unspecified (principal); J45.20 Mild intermittent asthma, uncomplicated; I10 Essential (primary) hypertension; E78.49 Other hyperlipidemia; I25.10 Atherosclerotic heart disease of native coronary artery without angina pectoris; K59.00 Constipation, unspecified

== ENCOUNTER → 2025-05-10 13:26 | Outpatient (BNVA) | payer MEDICARE, SELFPAY | PROVIDERS: PCP Student in an Organized Health Care Education/Training Program; Visit Provider Student in an Organized Health Care Education/Training Program | DX: J06.9 Acute upper respiratory infection, unspecified (principal); J45.20 Mild intermittent asthma, uncomplicated; I25.10 Atherosclerotic heart disease of native coronary artery without angina pectoris; I10 Essential (primary) hypertension; E78.49 Other hyperlipidemia; K59.00 Constipation, unspecified | CPT/HCPCS: 99212 ==